=== PATIENT | female | born 1945 | race Caucasian/White ===

== ENCOUNTER 2023-08-18 17:38 | Inpatient (IN) ==
--- NOTE | 2023-08-18 17:46 | ED Triage Note ---
Date of Service August 18, 2023 Provider in Triage Author: Tommie Myers History of Present Illness This patient was briefly evaluated while in triage. An abbreviated physical exam was performed. This patient is a 77-year-old Female who presents to the ED for evaluation of a possible low sodium level. Patient has had these symptoms in the past. The patient reports nausea, vomiting and diarrhea yesterday and this morning. Patient did take some extra sodium pills and felt better. Patient has had issues with hyponatremia since last January. She had a mini stroke before , and was admitted at [facility]. Physical Exam CONSTITUTIONAL: Healthy and well nourished. Patient does not appear in any acute distress. HEENT: Mucous membranes are dry. No scleral icterus or conjunctival injection. RESPIRATORY: Clear to auscultation bilaterally with no wheezing, crackles, rhonchi or stridor. CARDIOVASCULAR: Regular rate and rhythm with no murmurs, rubs or gallops. GASTROINTESTINAL: Bowel sounds present in all quadrants. INTEGUMENTARY: No rash or other significant dermatologic conditions noted. HEMATOLOGIC: No ecchymosis or petechiae. PSYCHIATRIC: Positive affect. NEUROLOGIC: No focal neurologic deficits noted. Initial orders for labs and / or imaging were placed and patient was placed in the waiting area until a bed is available. Please see further documentation for the full ED course.
[2023-08-18 18:25] LABS: Basophils # (auto) 0.06 K/uL (0.00-0.20); Basophils % (auto) 0.5 %; Eosinophils # (auto) 0.25 K/uL (0.00-0.50); Eosinophils % (auto) 2.3 %; Hemoglobin 12.5 g/dl (12.0-16.0); Immature Granulocytes # (auto) 0.05 K/uL (0.01-0.20); Immature Granulocytes % (auto) 0.5 %; Lymphocytes # (auto) 2.08 K/uL (1.20-3.40); Lymphocytes % (auto) 18.8 %; Mean Corpuscular Hemoglobin 29.8 pg (25.0-34.0); Mean Corpuscular Hgb Conc 33.8 g/dL (32.0-36.0); Mean Corpuscular Volume 88.3 fL (80.0-100.0); Mean Platelet Volume 8.8 fL (9.4-12.4); Monocytes # (auto) 0.88 K/uL (0.11-0.59); Monocytes % (auto) 7.9 %; Neutrophils # (auto) 7.77 K/uL (1.40-6.50); Platelet Count 427 K/uL (130-400); RDW Coefficient of Variation 13.7 % (11.5-14.5); RDW Standard Deviation 44.3 fL (36.4-46.3); Red Blood Count 4.19 M/uL (4.20-5.40); White Blood Count 11.09 K/ul (4.8-10.8)
[2023-08-18 18:42] LABS: Albumin Level 4.3 gm/dl (3.4-5.0); BUN Creatinine Ratio 16.5 (10-20); Bilirubin,Total 0.6 mg/dl (0.2-1.0); Calcium 9.7 mg/dl (8.6-10.3); Creatinine Clr Calc Pharmacy 46.6 ml/min; Est GFR (African American) 84.3 ml/min; Est GFR (Non-African American) 72.7 ml/min; Globulin 4.3 gm/dl (2.5-4.0); Potassium 4.4 mmol/L (3.5-5.1); Total Protein 8.6 gm/dl (6.0-8.3)
[2023-08-18 18:48] LABS: Troponin I High Sensitivity 5.6 pg/ml (0-14)
[2023-08-18 18:55] LABS: Prothrombin Time 10.8 Seconds (9.0-12.0)
--- NOTE | 2023-08-18 19:02 | XRay Report ---
XR chest 1V portable HISTORY: 77 years-old Female N/V/D acute chest pain with nausea, vomiting and diarrhea. COMPARISON: None TECHNIQUE: PA view of the chest FINDINGS: Cardiac silhouette is enlarged. Coarsened reticular diffuse interstitial densities with suggestive em physema. No pneumothorax or large pleural effusion. Bones appear grossly intact. IMPRESSION: Coarse reticular interstitial opacities of the lungs are nonspecific without comparison a vailable. The primary differential consideration would be pulmonary fibrosis. Pulmonary edema or an i nterstitial pneumonia considered less likely. ACT 112: Negative or not required by law. The above report was generated using voice recognition software. It may contain grammatical, syntax o r spelling errors. Electronically signed by: Costa Gómez M.D. 08/18/2023 7:01 PM
[2023-08-18] MEDS ORDERED: SODIUM CHLORIDE 0.9% 1,000 ML IV ONE (19:33)
[2023-08-18] MEDS ORDERED: ONDANSETRON INJ 2 MG/ML 2 ML VIAL IV STA (19:33)
--- NOTE | 2023-08-18 19:42 | Emergency Department Note ---
Impression & Plan Hyponatremia ED Provider Note Diagnosis: Hyponatremia Disposition: Admission CHIEF COMPLAINT: Low sodium level HPI: Patient is a 77-year-old female presenting with complaint of GI symptoms over the past 24 hours time. Patient states she has felt nauseous had an episode of vomiting and diarrhea. Patient has been having issues for the past 6 months time with low sodium levels. Patient has been taking oral tablets. Patient's primary care physician has sent her for evaluation at outside hospital's emergency room and she has been admitted multiple times for low sodium levels at [facility]. She is supposed to follow-up with endocrinology and nephrology but has not been able to establish appointments for 1 to 2 months time. Due to patient having GI symptoms today her primary sent her to our facility to have her sodium level checked and potential establishing with nephrology team. PAST MEDICAL HISTORY: See Below PAST SURGICAL HISTORY: See Below SOCIAL HISTORY: See Below HOME MEDICATIONS: See Below ALLERGIES: See Below VITALS: See Below PHYSICAL EXAMINATION: GENERAL: Well appearing, well nourished, NAD, non-toxic. EYE EXAM: Normal conjunctiva. OROPHARYNX: Moist mucus membranes. Grossly normal dentition. NECK: Supple, LUNGS: Clear to auscultation. Normal chest wall mechanics. HEART: NSR ABDOMEN: Abdomen soft, non-tender, normo-active bowel sounds, no masses, no rebound or guarding BACK: No CVA TTP. SKIN: No rashes and no bruising. UPPER EXTREMITIES: Upper extremities are grossly normal LOWER EXTREMITIES: Grossly normal, no edema. NEURO EXAM: A&O x3,, normal speech, moves all 4 extremities PSYCH: Cooperative MEDICAL DECISION MAKING: History obtained from: Patient, daughter ER Course: Patient is a 77-year-old female with history of issues with sodium level over the past 6 months time. Patient has been taking oral supplementation without help. Patient has been having GI symptoms for the past 24 hours time. Patient's abdomen soft nontender nondistended. Patient on blood work today has a sodium of 123. Patient given Zofran and IV fluids. Labs (independently interpreted) are significant for: Sodium 123 EKG interpretation (independently interpreted): Normal sinus rhythm no ST segment elevation or depression Chest x-ray interpretation (independently interpreted); chest x-ray clear Medications given: Normal saline bolus, Zofran Consultants: Hospitalist Triage Nursing notes reviewed and agree them. Vital Signs: reviewed and remarkable for: no significant abnormalities Past Med/Surg History Social History Smoking Status: Current every day smoker Feels Safe at Home: Yes Allergies Allergies Allergy/AdvReac Type Severity Reaction Status Date / Time No Known Allergies Allergy Unverified 08/18/23 20:28 Home Meds Home Medications Medication Instructions Recorded Confirmed albuterol sulfate 90 mcg/actuation 2 puff inhalation Q6H PRN SOB or 08/18/23 08/18/23 aerosol inhaler wheezing amlodipine 10 mg tablet 10 mg PO QAM 08/18/23 08/18/23 aspirin 81 mg tablet,delayed 81 mg PO QAM 08/18/23 08/18/23 release atorvastatin 40 mg tablet 40 mg PO HS 08/18/23 08/18/23 clonidine HCl 0.1 mg tablet 0.1 mg PO DAILY PRN BP greater 08/18/23 08/18/23 than 170/100 escitalopram oxalate 10 mg tablet 10 mg PO QAM 08/18/23 08/18/23 ferrous sulfate 325 mg (65 mg 325 mg PO .LUNCH 08/18/23 08/18/23 iron) tablet levothyroxine 75 mcg tablet 75 mcg PO QAM 08/18/23 08/18/23 lisinopril 20 mg tablet See Rx Instructions .Route .COMPLEX 08/18/23 08/18/23 lisinopril 40 mg tablet See Rx Instructions .Route .COMPLEX 08/18/23 08/18/23 lorazepam 0.5 mg tablet 0.5 mg PO Q6H PRN Anxiety 08/18/23 08/18/23 sodium chloride 1,000 mg soluble 1,000 mg PO TID 08/18/23 08/18/23 tablet tiotropium 2.5 mcg-olodaterol 2.5 2 puff inhalation QAM 08/18/23 08/18/23 mcg/actuation mist for inhalation (Stiolto Respimat) Results & Data (ED) Vital Signs Vital Signs - 24 hr 08/18/23 17:44 08/18/23 19:07 08/18/23 21:00 Temperature 36.8 C 36.6 C Temperature Source Temporal Artery Scan Oral Pulse Rate 90 Pulse Rate [Apical] 87 91 H Respiratory Rate 18 18 20 Respiratory Effort / Characteristics Non-Labored Non-Labored Non-Labored Respiratory Depth Normal Normal Normal Respiratory Pattern Regular Blood Pressure 133/60 Blood Pressure [Right Arm] 118/56 L 119/58 L Blood Pressure Mean 84 Blood Pressure Mean [Right Arm] 76 78 Pulse Oximetry 94 95 99 Oxygen Delivery Method Room Air Room Air Sepsis Recent Fever Within 48 Hours No Sepsis New/Unexplained Change in Mental Status No Sepsis Action Taken by Nursing No Action Required 08/18/23 21:39 Temperature Temperature Source Pulse Rate Pulse Rate [Apical] 87 Respiratory Rate 20 Respiratory Effort / Characteristics Non-Labored Respiratory Depth Normal Respiratory Pattern Blood Pressure Blood Pressure [Right Arm] 129/62 Blood Pressure Mean Blood Pressure Mean [Right Arm] 84 Pulse Oximetry 99 Oxygen Delivery Method Room Air Sepsis Recent Fever Within 48 Hours Sepsis New/Unexplained Change in Mental Status Sepsis Action Taken by Nursing Laboratory Data 08/18/23 17:58 08/18/23 17:58 Lab Results 08/18/23 Range/Units 17:58 WBC 11.09 H (4.8-10.8) K/ul RBC 4.19 L (4.20-5.40) M/uL Hgb 12.5 (12.0-16.0) g/dl Hct 37.0 (37.0-47.0) % MCV 88.3 (80.0-100.0) fL MCH 29.8 (25.0-34.0) pg MCHC 33.8 (32.0-36.0) g/dL RDW Std Deviation 44.3 (36.4-46.3) fL RDW Coeff of Eve 13.7 (11.5-14.5) % Plt Count 427 H (130-400) K/uL MPV 8.8 L (9.4-12.4) fL Immature Gran % (Auto) 0.5 % Neut % (Auto) 70.0 % Lymph % (Auto) 18.8 % Wise % (Auto) 7.9 % Eos % (Auto) 2.3 % Baso % (Auto) 0.5 % Neut # (Auto) 7.77 H (1.40-6.50) K/uL Lymph # (Auto) 2.08 (1.20-3.40) K/uL Wise # (Auto) 0.88 H (0.11-0.59) K/uL Eos # (Auto) 0.25 (0.00-0.50) K/uL Baso # (Auto) 0.06 (0.00-0.20) K/uL Immature Gran # (Auto) 0.05 (0.01-0.20) K/uL PT 10.8 (9.0-12.0) Seconds INR 1.0 (0.9-1.1) Sodium 123 L (136-145) mmol/L Potassium 4.4 (3.5-5.1) mmol/L Chloride 91 L (98-107) mmol/L Carbon Dioxide 24 (21-32) mmol/L Anion Gap 8 (3-11) BUN 13 (6-23) mg/dl Creatinine 0.79 (0.6-1.2) mg/dl Est Cr Clr Drug Dosing 46.6 ml/min Est GFR ( Amer) 84.3 ml/min Est GFR (Non-Af Amer) 72.7 ml/min BUN/Creatinine Ratio 16.5 (10-20) Glucose 104 H (70-99(Fasting)) mg/dl Osmolality 262 L (280-300) mOsm/kg Calcium 9.7 (8.6-10.3) mg/dl Total Bilirubin 0.6 (0.2-1.0) mg/dl AST 30 (13-39) U/L ALT 21 (7-52) U/L Alkaline Phosphatase 116 H (34-104) U/L Troponin I High Sens 5.6 (0-14) pg/ml Total Protein 8.6 H (6.0-8.3) gm/dl Albumin 4.3 (3.4-5.0) gm/dl Globulin 4.3 H (2.5-4.0) gm/dl Albumin/Globulin Ratio 1.0 (0.9-2) Lipase 31 (11-82) U/L Administered Medications Enoxaparin Sodium (Enoxaparin Inj 40 Mg/0.4 Ml Syr) 40 mg SQ HS CADEN Stop: 09/17/23 21:44 Last Admin: 08/18/23 21:57 Dose: Not Given Documented By: AEF Discontinued Medications Sodium Chloride (Nss) 1,000 mls @ 999 mls/hr IV .Q1H1M ONE Stop: 08/18/23 20:33 Last Infusion: 08/18/23 20:40 Dose: Infused Documented By: Infusion: 08/18/23 20:40 Dose: 999 mls/hr Documented By: Admin: 08/18/23 19:41 Dose: 999 mls/hr Documented By: AEF Sodium Chloride (Nss) 1,000 mls @ 80 mls/hr IV .[id number] CADEN Stop: 09/17/23 21:44 Last Admin: 08/18/23 21:59 Dose: Not Given Documented By: AEF Ondansetron HCl (Ondansetron Inj 2 Mg/Ml 2 Ml Vial) 4 mg IV NOW STA Stop: 08/18/23 19:34 Last Admin: 08/18/23 19:41 Dose: 4 mg Documented By: AEF Imaging Data Radiologist's Impression: Chest X-Ray 08/18/23 17:47 XR chest 1V portable HISTORY: 77 years-old Female N/V/D acute chest pain with nausea, vomiting and diarrhea. COMPARISON: None TECHNIQUE: PA view of the chest FINDINGS: Cardiac silhouette is enlarged. Coarsened reticular diffuse interstitial densities with suggestive emphysema. No pneumothorax or large pleural effusion. Bones appear grossly intact. IMPRESSION: Coarse reticular interstitial opacities of the lungs are nonspecific without comparison available. The primary differential consideration would be pulmonary fibrosis. Pulmonary edema or an interstitial pneumonia considered less likely. ACT 112: Negative or not required by law. The above report was generated using voice recognition software. It may contain grammatical, syntax or spelling errors. Electronically signed by: Costa Gómez M.D. 08/18/2023 7:01 PM Discharge Plan Visit Data Chief Complaint: GI Assessment Stated Complaint: LOW SODIUM LVLS ED Provider: Zafar Rucker Discharge Problem: Hyponatremia Forms Stand Alone Forms: My [facility] Prescriptions Prescriptions: No Action atorvastatin 40 mg tablet 40 mg PO HS clonidine HCl 0.1 mg tablet 0.1 mg PO DAILY PRN (Reason: BP greater than 170/100) lisinopril 20 mg tablet See Rx Instructions .ROUTE .COMPLEX Rx Instructions: Take 20mg with 40mg tablet to equal 60mg by mouth every morning aspirin 81 mg tablet,delayed release (DR/EC) 81 mg PO QAM levothyroxine 75 mcg tablet 75 mcg PO QAM lorazepam 0.5 mg tablet 0.5 mg PO Q6H PRN (Reason: Anxiety) amlodipine 10 mg tablet 10 mg PO QAM ferrous sulfate 325 mg (65 mg iron) tablet 325 mg PO .LUNCH albuterol sulfate 90 mcg/actuation HFA aerosol inhaler 2 puff INHALATION Q6H PRN (Reason: SOB or wheezing) lisinopril 40 mg tablet See Rx Instructions .ROUTE .COMPLEX Rx Instructions: Take 40mg with 20mg tablet to equal 60mg by mouth every morning escitalopram oxalate 10 mg tablet 10 mg PO QAM sodium chloride 1,000 mg tablet,soluble 1,000 mg PO TID Stiolto Respimat 2.5-2.5 mcg/actuation mist 2 puff INHALATION QAM Referrals Referrals: PCP,NO [Physician] -
--- NOTE | 2023-08-18 20:32 | History & Physical Report ---
Date of Service August 18, 2023 Assessment & Plan (1) Hyponatremia: Plan: Pt is a 77 yo female with PMH of hyponatremia, "mini-stroke", COPD, and HTN presenting due to fatigue, malaise, and vomiting. Her Na was found to be 123. Hyponatremia - appears acute on chronic; unknown etiology- SIADH vs. dietary in origin vs. ? - Na 123 upon admission; s/p 1L NS in ED; repeat Na 125 - urine studies pending; serum osm low - per pt, has had multiple studies/work up for her hyponatremia but her PCP has not found an explanation yet for her repeated symptoms and has been trying to set her up with specialty care (either nephro or endocrine) will attempt to obtain records from pt's PCP with [facility] to determine what work up has already occurred - with improvement in pt's Na after fluid resuscitation, will continue IVF with NS at 100 mL/hr - trend BMP q6hr with goal correction 6-8 over next 24 hrs - nephro consulted COPD - continue daily home inhalers or formulary equivalents - pt is a current smoker with >50 pack year hx; per pt, has been screened multiple times over the years for lung cancer with LDCT - with significant hx of smoking and recurrent hyponatremia (and no records of last LDCT), consideration may be given for chest CT to screen for malignancy HX of CVA - continue home atorvastatin, aspirin HTN - hold home clonidine - will continue home lisinopril but decrease from 60mg to 40 mg Hypothyroidism - continue home levothyroxine 75 mcg daily Diet: regular VTE ppx: lovenox Code: DNR/DNI Dispo: admit to med/tele (2) COPD (chronic obstructive pulmonary disease): (3) History of CVA (cerebrovascular accident): (4) Hypothyroidism: History of Present Illness Chief Complaint: symptomatic hyponatremia Primary Care Provider: Lissette Dailey Pt is a 77 yo female with PMH of hyponatremia, "mini-stroke", COPD, and HTN presenting due to fatigue, malaise, and vomiting. Pt explains that she has been struggling with her sodium levels for months since January. No inciting event. Since then, she has been hospitalized numerous times ([place] and [place]) for this. She was also recently admitted for a "mini- stroke" and she was told her brain MRI showed a hx of prior stroke. Her PCP has been handling her sodium levels by supplementing her with 1000mg TID. When she originally started this, she became hypertensive. She has since required medications to control this but her BP are now under control. She reports she has seen a multifocal button generator once in the past for "fluid around my heart" and an enlarged aorta. She was told that both of these things were fine and she has not needed to f/u. She has also seen a pulmonology for her hx of COPD. She is a 55 pack year smoker. She uses inhalers at home for this. She began vomiting (x2) this morning with associated diarrhea (x2). She called her PCP who told her to come to the hospital because it could be due to her sodium levels. She denies hematochezia or hematemesis. In the ER, pt was hemodynamically stable. Her lab work was significant for WBC 11.09, Hgb 12.5, platelets 427, Na 123, and Cr 0.79. CXR showed findings consistent with possible pulmonary fibrosis. She was given 4mg zofran and 1L NS. Allergies Allergy/AdvReac Type Severity Reaction Status Date / Time No Known Allergies Allergy Unverified 08/18/23 20:28 Home Medications Medication Instructions Recorded Confirmed Type albuterol sulfate 90 mcg/actuation 2 puff inhalation Q6H PRN SOB or 08/18/23 08/18/23 History aerosol inhaler wheezing amlodipine 10 mg tablet 10 mg PO QAM 08/18/23 08/18/23 History aspirin 81 mg tablet,delayed 81 mg PO QAM 08/18/23 08/18/23 History release atorvastatin 40 mg tablet 40 mg PO HS 08/18/23 08/18/23 History clonidine HCl 0.1 mg tablet 0.1 mg PO DAILY PRN BP greater 08/18/23 08/18/23 History than 170/100 escitalopram oxalate 10 mg tablet 10 mg PO QAM 08/18/23 08/18/23 History ferrous sulfate 325 mg (65 mg 325 mg PO .LUNCH 08/18/23 08/18/23 History iron) tablet levothyroxine 75 mcg tablet 75 mcg PO QAM 08/18/23 08/18/23 History lisinopril 20 mg tablet See Rx Instructions .Route .COMPLEX 08/18/23 08/18/23 History lisinopril 40 mg tablet See Rx Instructions .Route .COMPLEX 08/18/23 08/18/23 History lorazepam 0.5 mg tablet 0.5 mg PO Q6H PRN Anxiety 08/18/23 08/18/23 History sodium chloride 1,000 mg soluble 1,000 mg PO TID 08/18/23 08/18/23 History tablet tiotropium 2.5 mcg-olodaterol 2.5 2 puff inhalation QAM 08/18/23 08/18/23 History mcg/actuation mist for inhalation (Stiolto Respimat) Past Med/Surg History Social History Smoking Status: Current every day smoker Tobacco Type: Cigarettes Hx Alcohol Use: No Hx Substance Use: No Preferred Language: Greek Communication Ability: Effective Bottle Booth Attendant Required: No Beliefs That Will Affect Care: None Current Living Situation: Alone Other Information That Helps Us Care for You: No Feels Safe at Home: Yes Safety Concerns: Feels Safe At This Time Review of Systems Review of Systems: As per HPI Physical Exam Physical Exam: Constitutional: well appearing, no acute distress HEENT: normocephalic, no conjunctival injection CV: RRR, no murmur, no LE edema Respiratory: CTA bilaterally with diminished breath sounds throughout. No rhonchi, wheezes, or crackles. No increased work of breathing GI: soft, nondistended, nontender, + bowel sounds MSK: no gross deformities noted Skin: warm, dry, no rashes Neuro: alert, oriented, no FND noted Psych: mood and affect congruent Results & Data Results & Data Vital Signs (Past 12 Hours) Vital Signs Temp Pulse Pulse Resp BP BP Pulse Ox 08/18/23 19:07 36.6 C 87 18 118/56 L 95 08/18/23 17:44 36.8 C 90 18 133/60 94 O2 Del Method 08/18/23 19:07 Room Air 08/18/23 17:44 Room Air Supervising Physician Co-Signing Physician Notes Patient seen and examined, chart reviewed, case discussed with Dr. Yin and I agree with the assessment and plan as above. In brief, patient is a 77yo female presenting with fatigue, malaise and vomiting. Patient with hyponatremia first diagnosed in January 2023. She has been following with her PCP and has had some workup performed. She is on Na 1000mg po TID. She reports she eats a regular diet. She drinks water and iced tea through the day as well as "Liquid IV" electrolyte drink. Patient with vomiting x 2 episodes and diarrhea. She reports feeling similar to when her Na level was low in the past. In the ER she is afebrile, HD stable, NAD Skin - warm, dry, intact HEENT - slightly tacky mucus membranes, neck supple, no JVD Heart - +S1/S2, regular, no m/r/g Lungs - CTA, no rales/rhonchi/wheezes Abd - +BS, soft, NT/ND Ext - warm, well perfused, no clubbing/cyanosis or edema Labs and images reviewed. Na of 123 which increased to 125 after administration of 1L NSS in the ER Assessment/Plan -Hyponatremia - minimally symptomatic with nausea. Suspect acute on chronic. Patient appears mildly hypovolemic -Low urine and serum osmolality. Awaiting UA and urine Na -Requesting records from outpatient workup -Will continue NSS at 100mL/hr -Trend BMP q 6 hours -Goal to increase 6-8/day -Nephrology consultation appreciated -Remainder of plan as above Resident Activity Tracking Resident Involvement: Resident Care Provided Care Provided: Adult [facility] Medicine
[2023-08-18] MEDS ORDERED: ONDANSETRON INJ 2 MG/ML 2 ML VIAL IV PRN (21:38)
[2023-08-18] MEDS ORDERED: POLYETHYLENE (MIRALAX) 17 GM PACK PO PRN (21:38)
[2023-08-18] MEDS ORDERED: MELATONIN 3 MG TAB PO PRN (21:38)
[2023-08-18] MEDS ORDERED: SODIUM CHLORIDE 0.9% 1,000 ML IV SCH (21:45)
[2023-08-18] MEDS: ENOXAPARIN INJ 40 MG/0.4 ML SYR SQ SCH (21:57)
[2023-08-18 23:17] LABS: BUN Creatinine Ratio 15.7 (10-20); Calcium 8.5 mg/dl (8.6-10.3); Creatinine Clr Calc Pharmacy 52.6 ml/min; Est GFR (African American) 97.5 ml/min; Est GFR (Non-African American) 84.2 ml/min; Potassium 4.2 mmol/L (3.5-5.1)
[2023-08-18] MEDS ORDERED: ALBUTEROL HFA 8 GM INHALER INH PRN (23:22)
[2023-08-18] MEDS: SODIUM CHLORIDE 0.9% 1,000 ML IV SCH (23:47)
--- NOTE | 2023-08-19 00:37 | Billing Data ---
Date of Service August 18, 2023 Coding Level of Care Code 23326 INT INP/OBS CARE
[2023-08-19 04:02] LABS: Hematocrit (blood only) 31.8 % (37.0-47.0); Hemoglobin 10.6 g/dl (12.0-16.0); Mean Corpuscular Hemoglobin 29.7 pg (25.0-34.0); Mean Corpuscular Hgb Conc 33.3 g/dL (32.0-36.0); Mean Corpuscular Volume 89.1 fL (80.0-100.0); Mean Platelet Volume 8.6 fL (9.4-12.4); Platelet Count 347 K/uL (130-400); RDW Coefficient of Variation 13.6 % (11.5-14.5); RDW Standard Deviation 44.5 fL (36.4-46.3); Red Blood Count 3.57 M/uL (4.20-5.40); White Blood Count 9.39 K/ul (4.8-10.8)
[2023-08-19 04:19] LABS: BUN Creatinine Ratio 14.9 (10-20); Calcium 8.6 mg/dl (8.6-10.3); Creatinine Clr Calc Pharmacy 54.9 ml/min; Est GFR (Non-African American) 85.4 ml/min; Potassium 4.2 mmol/L (3.5-5.1)
[2023-08-19] MEDS: LEVOTHYROXINE SODIUM 75 MCG TABLET PO SCH (06:32)
--- NOTE | 2023-08-19 07:23 | Hospitalist Progress Note ---
Date of Service August 19, 2023 Assessment & Plan (1) Hyponatremia: Plan: Pt is a 77 yo female with PMH of hyponatremia, "mini-stroke", COPD, and HTN presenting due to fatigue, malaise, and vomiting. Her Na was found to be 123. Hyponatremia - appears acute on chronic; unknown etiology- SIADH leading diagnosis. - Na 123 upon admission; improved slightly with normal saline, though repeat sodium returned to previous levels. - urine studies pending; serum osm low - per pt, has had multiple studies/work up for her hyponatremia but her PCP has not found an explanation yet for her repeated symptoms and has been trying to set her up with specialty care (either nephro or endocrine) will attempt to obtain records from pt's PCP with [facility] to determine what work up has already occurred -Due to fluids only slightly helping, will hold fluids at this time. - nephro consulted: -Order urine osmolarity, urine sodium, TSH, and random cortisol. -Given drop in 1 dose and recheck sodium. -Given extensive smoking history, will order CT abdomen pelvis and chest. -CT showed emphysema with mucous plugging and bibasilar opacities. There is also trace pleural effusion with dependent consolidation. -Scarlike opacities seen throughout both lungs measuring up to 1.8 cm in length. Recommend a 6-month follow-up chest CT for reassessment -CT abdomen and pelvis also showed a infrarenal abdominal aortic aneurysm measuring 6.1 cm with nonspecific periaortic stranding without retroperitoneal hematoma. Abdominal aortic aneurysm -Incidentally noted a 6.1 cm AAA with nonspecific periaortic stranding without retroperitoneal hematoma. -Will consult vascular surgery given the size of AAA as well as straining seen on CT. -Did talk to patient who stated that she was seen by someone last summer for this and that no intervention was required. Still waiting on records from [facility]. COPD - continue daily home inhalers or formulary equivalents - pt is a current smoker with >50 pack year hx; per pt, has been screened multiple times over the years for lung cancer with LDCT - with significant hx of smoking and recurrent hyponatremia (and no records of last LDCT), no malignancy seen on CT chest, abdomen or pelvis. HX of CVA - continue home atorvastatin, aspirin HTN - hold home clonidine - will continue home lisinopril but decrease from 60mg to 40 mg Hypothyroidism - continue home levothyroxine 75 mcg daily Diet: regular VTE ppx: lovenox Code: DNR/DNI Dispo: admit to med/tele (2) COPD (chronic obstructive pulmonary disease): (3) History of CVA (cerebrovascular accident): (4) Hypothyroidism: (5) AAA (abdominal aortic aneurysm): Admission and Anticipated Discharge Date Admission Date: August 18, 2023 Supervising Physician Co-Signing Physician Notes I personally examined the patient and verified all villalta points of history and exam, discussed case, and agree with decision making with Dr Munoz feeling ok overall discussed labs/w/u findings/working dx etc and answered all questions to the best of my ability. notes that she was also told about anuerysm ?last summer - but notes at that time the information services manager she was seeing did not think much of it gen aaox3 pleasant nad heent nc at mmm breathing unlabored no accessory muscles good effort skin no rashes no pallor or icterus neuro no focal deficits labs, CTs noted hyponatremia - thus far most c/w SiADH, and thus far most likely root cause is lung disease. fluid restrict, follow for response with tolvaptan AAA - 6.1cm, no symptoms but with some stranding - both based on size (no old records but if <1yr ago information services manager she was seeing did not rec interventions or monitoring i doubt it was this big) - likely has grown. vascular surgery eval. hold lovenox pending vascular eval. otherwise as above Subjective Patient was seen bedside this morning. States that her symptoms of nausea and vomiting are improving still slightly present. States that she is also been having a cough for the past 3 to 4 days. Review of Systems Review of Systems: All systems reviewed & are unremarkable except as noted in Subjective Physical Exam Physical Exam: Constitutional: well appearing, no acute distress HEENT: normocephalic, no conjunctival injection CV: RRR, no murmur, no LE edema Respiratory: CTA bilaterally with diminished breath sounds throughout. No rhonchi, wheezes, or crackles. No increased work of breathing GI: soft, nondistended, nontender, + bowel sounds MSK: no gross deformities noted Skin: warm, dry, no rashes Neuro: alert, oriented, no FND noted Psych: mood and affect congruent Results & Data Results & Data Vital Signs (Past 12 Hours) Vital Signs Pulse Pulse Resp BP BP Pulse Ox O2 Del Method 08/19/23 07:09 74 08/19/23 06:20 72 17 99 08/19/23 06:10 77 17 99 08/19/23 06:00 76 14 100 08/19/23 06:00 73 16 131/76 100 08/19/23 05:50 72 15 100 08/19/23 05:40 73 18 100 08/19/23 05:30 70 14 100 08/19/23 05:20 72 18 100 08/19/23 05:10 71 16 98 08/19/23 05:00 75 18 132/59 L 94 08/19/23 05:00 75 19 94 08/19/23 04:50 87 18 97 08/19/23 04:40 71 18 99 08/19/23 04:30 75 16 99 08/19/23 04:20 74 17 100 08/19/23 04:10 75 16 98 08/19/23 04:00 73 15 99 08/19/23 04:00 73 16 126/72 98 08/19/23 03:50 75 18 96 08/19/23 03:40 73 15 99 08/19/23 03:30 74 24 98 08/19/23 03:20 74 21 100 08/19/23 03:10 81 16 100 08/19/23 03:00 78 19 98 08/19/23 03:00 138/64 08/19/23 02:50 75 15 99 08/19/23 02:40 91 H 14 99 08/19/23 02:30 72 21 98 08/19/23 02:20 76 19 98 08/19/23 02:10 90 22 99 08/19/23 02:00 76 19 99 08/19/23 02:00 123/60 08/19/23 01:50 75 16 100 08/19/23 01:46 74 16 132/64 99 Nasal Cannula 08/19/23 01:40 79 24 100 08/19/23 01:30 76 16 100 08/19/23 01:20 74 17 100 08/19/23 01:10 74 18 100 08/19/23 01:00 132/64 08/19/23 01:00 74 18 100 08/19/23 00:50 87 19 99 08/19/23 00:40 92 H 23 84 L 08/19/23 00:30 75 20 94 08/19/23 00:29 76 17 136/74 94 Room Air 08/19/23 00:22 136/74 08/19/23 00:22 81 20 89 L 08/19/23 00:21 77 11 L 08/19/23 00:00 74 16 08/18/23 23:50 84 23 08/18/23 23:40 79 21 08/18/23 23:30 79 20 08/18/23 23:20 76 22 08/18/23 23:10 77 25 H 08/18/23 23:00 79 20 08/18/23 23:00 81 20 129/62 98 08/18/23 22:50 83 19 08/18/23 22:40 78 20 08/18/23 22:30 76 21 08/18/23 22:20 84 21 08/18/23 22:10 84 41 H 08/18/23 22:00 81 24 08/18/23 21:56 85 18 08/18/23 21:56 129/62 08/18/23 21:50 89 22 08/18/23 21:40 82 18 08/18/23 21:39 87 20 129/62 99 Room Air 08/18/23 21:30 84 22 08/18/23 21:00 91 H 20 119/58 L 99 O2 Flow Rate 08/19/23 07:09 08/19/23 06:20 08/19/23 06:10 08/19/23 06:00 08/19/23 06:00 08/19/23 05:50 08/19/23 05:40 08/19/23 05:30 08/19/23 05:20 08/19/23 05:10 08/19/23 05:00 08/19/23 05:00 08/19/23 04:50 08/19/23 04:40 08/19/23 04:30 08/19/23 04:20 08/19/23 04:10 08/19/23 04:00 08/19/23 04:00 08/19/23 03:50 08/19/23 03:40 08/19/23 03:30 08/19/23 03:20 08/19/23 03:10 08/19/23 03:00 08/19/23 03:00 08/19/23 02:50 08/19/23 02:40 08/19/23 02:30 08/19/23 02:20 08/19/23 02:10 08/19/23 02:00 08/19/23 02:00 08/19/23 01:50 08/19/23 01:46 2 08/19/23 01:40 08/19/23 01:30 08/19/23 01:20 08/19/23 01:10 08/19/23 01:00 08/19/23 01:00 08/19/23 00:50 08/19/23 00:40 08/19/23 00:30 08/19/23 00:29 08/19/23 00:22 08/19/23 00:22 08/19/23 00:21 08/19/23 00:00 08/18/23 23:50 08/18/23 23:40 08/18/23 23:30 08/18/23 23:20 08/18/23 23:10 08/18/23 23:00 08/18/23 23:00 08/18/23 22:50 08/18/23 22:40 08/18/23 22:30 08/18/23 22:20 08/18/23 22:10 08/18/23 22:00 08/18/23 21:56 08/18/23 21:56 08/18/23 21:50 08/18/23 21:40 08/18/23 21:39 08/18/23 21:30 08/18/23 21:00 Resident Activity Tracking Resident Involvement: Resident Care Provided Care Provided: Adult Hospital Medicine
[2023-08-19] MEDS: ASPIRIN 81 MG ECTAB PO SCH (08:54)
[2023-08-19] MEDS: amLODIPine BESYLATE 5 MG TAB PO SCH (08:54)
[2023-08-19] MEDS: lisinopril 40 MG TAB PO SCH (08:54)
[2023-08-19] MEDS: UMECLIDINIUM/VILANTEROL 62.5/25MCG 7 PUFFS/INHALER INH SCH (08:55)
[2023-08-19] MEDS: ESCITALOPRAM OXALATE 10 MG TAB PO SCH (08:55)
[2023-08-19] MEDS: SODIUM CHLORIDE 0.9% 1,000 ML IV SCH (08:58)
[2023-08-19] MEDS: ACETAMINOPHEN 325 MG TAB PO PRN ×3 (10:08→20:26)
[2023-08-19 10:51] LABS: BUN Creatinine Ratio 11.6 (10-20); Calcium 8.4 mg/dl (8.6-10.3); Creatinine Clr Calc Pharmacy 53.3 ml/min; Est GFR (Non-African American) 84.6 ml/min; Potassium 4.3 mmol/L (3.5-5.1)
--- NOTE | 2023-08-19 11:19 | Nephrology Consultation ---
Date of Consultation August 19, 2023 Assessment & Plan (1) Hyponatremia: (2) COPD (chronic obstructive pulmonary disease): (3) Hypothyroidism: (4) History of CVA (cerebrovascular accident): (5) HTN (hypertension): (6) Generalized weakness: (7) Weight loss: Plan 77-year-old female with history of hyponatremia, admitted with generalized weakness, vomiting and diarrhea and found to have acute hyponatremia, serum sodium 123. Initially she was started on IV fluid with sodium slightly improved to 126 however sodium this morning again dropped to 124. Blood pressure acceptable. No urine osmolality available. -- Discontinue normal saline, repeat serum sodium in 2 hours and then check every 12 hours. Check urine osmolality, urine sodium, TSH, random cortisol. -- Give tolvaptan 15 mg x 1 dose now. -- Considering long history of smoking for more than 60 years, weight loss, recent persistent hyponatremia, and chest x-ray showing concern for possible interstitial fibrosis, will order CT chest abdomen pelvis for further evaluation. Eventually she should have age-appropriate screening including mammogram and colonoscopy. Thank you for allowing me to participate in your patient's care. It was a pleasure to see Oly. History of Present Illness Reason for Consultation: Hyponatremia Attending Physician: Albert Nunez DO History of Present Illness Ms. Oly Denton is a 77 yo female with PMH of Hypertension, hyponatremia, COPD admitted with generalized weakness and acute hyponatremia. Nephrology consult was requested for management of hyponatremia. EMR records were reviewed in detail during patient's visit. Oly presented to ER yesterday with generalized weakness, nausea, vomiting and diarrhea. She reports having history of hyponatremia which started sometime around January when she went to hospital with again feeling weak and tired all the time. Since then she reports multiple hospitalization and workup in outpatient facility, those are not available to review. She was started on salt tablet which she has been taking 1 g 3 times a day and her sodium was staying rela tively stable as an outpatient. However recently she again started feeling poorly. In ER yesterday, sodium was 123, she was started on IV normal saline and sodium slightly improved to 125 last night and 126 this morning. Urine osmolality was 260. She reports decent appetite. She reports being in good health until about 3 years ago with no significant chronic medical condition. She had COVID-vaccine 3 years ago and she feels like since then her health has been declining with slow progressive weight loss, generalized weakness and fatigue and low energy overall. She lost almost 25 pounds over last 1 year or so. No h/o, NSAID, thiazide diuretics use. No history of diabetes, CHF. Current active smoker, smokes about 1 pack/day for last more than 60 years . She reports she previously had CT chest for lung cancer screening but those reports are not available. No personal history of malignancy but last mammogram was more than 10 years ago. Never had colonoscopy, refused. She has history of hypothyroidism, has been on levothyroxine, no history of adrenal insufficiency. Renal function was normal, creatinine was 0.8 and all other electrolyte within normal limit. No urinalysis or urine osmolality available. Reports recently her blood pressure has been running high and she has been taking lisinopril, Amlodipine and Clonidine. She is still getting normal saline at 100 mL/h. Sodium slightly improved to 126 this morning. Blood pressure acceptable. Allergies Allergy/AdvReac Type Severity Reaction Status Date / Time No Known Allergies Allergy Unverified 08/18/23 20:28 Home Medications Medication Instructions Recorded Confirmed Type albuterol sulfate 90 mcg/actuation 2 puff inhalation Q6H PRN SOB or 08/18/23 08/18/23 History aerosol inhaler wheezing amlodipine 10 mg tablet 10 mg PO QAM 08/18/23 08/18/23 History aspirin 81 mg tablet,delayed 81 mg PO QAM 08/18/23 08/18/23 History release atorvastatin 40 mg tablet 40 mg PO HS 08/18/23 08/18/23 History clonidine HCl 0.1 mg tablet 0.1 mg PO DAILY PRN BP greater 08/18/23 08/18/23 History than 170/100 escitalopram oxalate 10 mg tablet 10 mg PO QAM 08/18/23 08/18/23 History ferrous sulfate 325 mg (65 mg 325 mg PO .LUNCH 08/18/23 08/18/23 History iron) tablet levothyroxine 75 mcg tablet 75 mcg PO QAM 08/18/23 08/18/23 History lisinopril 20 mg tablet See Rx Instructions .Route .COMPLEX 08/18/23 08/18/23 History lisinopril 40 mg tablet See Rx Instructions .Route .COMPLEX 08/18/23 08/18/23 History lorazepam 0.5 mg tablet 0.5 mg PO Q6H PRN Anxiety 08/18/23 08/18/23 History sodium chloride 1,000 mg soluble 1,000 mg PO TID 08/18/23 08/18/23 History tablet tiotropium 2.5 mcg-olodaterol 2.5 2 puff inhalation QAM 08/18/23 08/18/23 History mcg/actuation mist for inhalation (Stiolto Respimat) Patient History Medical History (Updated 08/19/23 @ 11:29 by Radha Bullard MD) Weight loss Generalized weakness HTN (hypertension) Social History Smoking Status: Current every day smoker Tobacco Type: Cigarettes Hx Alcohol Use: No Hx Substance Use: No Preferred Language: Malian Communication Ability: Effective Bung Driver Required: No Beliefs That Will Affect Care: None Current Living Situation: Alone Other Information That Helps Us Care for You: No Feels Safe at Home: Yes Safety Concerns: Feels Safe At This Time Review of Systems Review of Systems: All systems reviewed & are unremarkable except as noted in Subjective Physical Exam Constitutional: WD/WN, vitals as above + ill appearing; no acute distress Eyes: + anicteric sclerae ENMT: Ears: no hearing impairment Neck: normal visual inspection Thyroid: no thyromegaly Respiratory: no respiratory distress and no cough Auscultation: + crackles; no wheezes Cardiovascular: RRR, no murmur, no edema Gastrointestinal (Abdomen): Inspection/Auscultation: abdomen normal to inspection Musculoskeletal: Extremities: extremities normal to inspection Skin: no rashes, warm and dry Neurologic: no focal motor deficits and not confused Psychiatric: Orientation: alert and oriented x 3 Affect: euthymic affect Results & Data Vital Signs (Past 12 Hours) Vital Signs Temp Pulse Pulse Resp BP BP Pulse Ox 08/19/23 10:09 36.9 C 77 19 138/63 98 08/19/23 08:40 74 20 98 08/19/23 08:30 84 21 98 08/19/23 08:20 76 17 98 08/19/23 08:10 75 18 98 08/19/23 08:00 79 22 98 08/19/23 08:00 136/65 08/19/23 07:50 74 22 96 08/19/23 07:40 84 24 98 08/19/23 07:30 74 17 98 08/19/23 07:20 84 17 95 08/19/23 07:10 72 18 97 08/19/23 07:09 74 08/19/23 07:00 81 18 137/72 99 08/19/23 06:20 72 17 99 08/19/23 06:10 77 17 99 08/19/23 06:00 76 14 100 08/19/23 06:00 73 16 131/76 100 08/19/23 05:50 72 15 100 08/19/23 05:40 73 18 100 08/19/23 05:30 70 14 100 08/19/23 05:20 72 18 100 08/19/23 05:10 71 16 98 08/19/23 05:00 75 18 132/59 L 94 08/19/23 05:00 75 19 94 08/19/23 04:50 87 18 97 08/19/23 04:40 71 18 99 08/19/23 04:30 75 16 99 08/19/23 04:20 74 17 100 08/19/23 04:10 75 16 98 08/19/23 04:00 73 15 99 08/19/23 04:00 73 16 126/72 98 08/19/23 03:50 75 18 96 08/19/23 03:40 73 15 99 08/19/23 03:30 74 24 98 08/19/23 03:20 74 21 100 08/19/23 03:10 81 16 100 08/19/23 03:00 78 19 98 08/19/23 03:00 138/64 08/19/23 02:50 75 15 99 08/19/23 02:40 91 H 14 99 08/19/23 02:30 72 21 98 08/19/23 02:20 76 19 98 08/19/23 02:10 90 22 99 08/19/23 02:00 76 19 99 08/19/23 02:00 123/60 08/19/23 01:50 75 16 100 08/19/23 01:46 74 16 132/64 99 08/19/23 01:40 79 24 100 08/19/23 01:30 76 16 100 08/19/23 01:20 74 17 100 08/19/23 01:10 74 18 100 08/19/23 01:00 132/64 08/19/23 01:00 74 18 100 08/19/23 00:50 87 19 99 08/19/23 00:40 92 H 23 84 L 08/19/23 00:30 75 20 94 08/19/23 00:29 76 17 136/74 94 08/19/23 00:22 136/74 08/19/23 00:22 81 20 89 L 08/19/23 00:21 77 11 L 08/19/23 00:00 74 16 08/18/23 23:50 84 23 08/18/23 23:40 79 21 08/18/23 23:30 79 20 08/18/23 23:20 76 22 O2 Del Method O2 Flow Rate 08/19/23 10:09 Room Air 08/19/23 08:40 08/19/23 08:30 08/19/23 08:20 08/19/23 08:10 08/19/23 08:00 08/19/23 08:00 08/19/23 07:50 08/19/23 07:40 08/19/23 07:30 08/19/23 07:20 08/19/23 07:10 08/19/23 07:09 08/19/23 07:00 08/19/23 06:20 08/19/23 06:10 08/19/23 06:00 08/19/23 06:00 08/19/23 05:50 08/19/23 05:40 08/19/23 05:30 08/19/23 05:20 08/19/23 05:10 08/19/23 05:00 08/19/23 05:00 08/19/23 04:50 08/19/23 04:40 08/19/23 04:30 08/19/23 04:20 08/19/23 04:10 08/19/23 04:00 08/19/23 04:00 08/19/23 03:50 08/19/23 03:40 08/19/23 03:30 08/19/23 03:20 08/19/23 03:10 08/19/23 03:00 08/19/23 03:00 08/19/23 02:50 08/19/23 02:40 08/19/23 02:30 08/19/23 02:20 08/19/23 02:10 08/19/23 02:00 08/19/23 02:00 08/19/23 01:50 08/19/23 01:46 Nasal Cannula 2 08/19/23 01:40 08/19/23 01:30 08/19/23 01:20 08/19/23 01:10 08/19/23 01:00 08/19/23 01:00 08/19/23 00:50 08/19/23 00:40 08/19/23 00:30 08/19/23 00:29 Room Air 08/19/23 00:22 08/19/23 00:22 08/19/23 00:21 08/19/23 00:00 08/18/23 23:50 08/18/23 23:40 08/18/23 23:30 08/18/23 23:20 PG Care Time/CCT Total # of Minutes Spent Total Time Spent with Patient: Total time spent is greater than 50% in coordination of care (as documented) at patient's floor/unit and/or counseling patient: Coding Level of Care Code 08279 IN/OBS CONSULT LVL 5,80M Diagnoses Hyponatremia E87.1 COPD (chronic obstructive pulmonary disease) J44.9 Hypothyroidism E03.9 History of CVA (cerebrovascular accident) Z86.73 HTN (hypertension) I10 Generalized weakness R53.1 Weight loss R63.4
[2023-08-19] MEDS ORDERED: TOLVAPTAN 15 MG TABLET PO STA (11:42)
[2023-08-19] MEDS ORDERED: [UNRECOGNIZED DRUG - REMARK] ONE (11:45)
[2023-08-19] MEDS: FERROUS SULFATE 325 MG TAB PO SCH (12:11)
[2023-08-19 12:13] LABS: Uric Acid 2.7 mg/dl (2.6-7.2)
[2023-08-19 12:29] LABS: Thyroid Stimulating Hormone 1.342 uIu/ml (0.300-4.500)
--- NOTE | 2023-08-19 12:54 | CT Scan Report ---
CT SCAN OF THE CHEST WITHOUT IV CONTRAST CLINICAL HISTORY: Hyponatremia. Weight loss. Smoking history. Abnormal chest x-ray. COMPARISON STUDY: Chest x-ray dated 08/18/2023. TECHNIQUE: CT scan of the thorax was performed from the thoracic inlet to the upper abdomen. Images are reviewed in the axial, sagittal, and coronal planes. IV contrast was not administered for this ex amination as per the referring clinician. A dose lowering technique was utilized adhering to the jose eduardo lai of GIOVANNY. FINDINGS: Thyroid: Mildly atrophic and heterogeneous. Thoracic aorta: There is advanced atherosclerotic calcification of the thoracic aorta, which is angi l in caliber and demonstrates standard 3-vessel arch anatomy. Heart: The heart is normal in size noting a small pericardial effusion. The coronary arteries are den sely calcified. Lungs and pleural spaces: There is advanced and some of this change. The trachea and central airways are clear. Fluid/debris versus mucous plugging is noted in the lower lobe airways. There are trace pl eural effusions with mild dependent consolidation. Scar like opacities are seen throughout both lungs . The largest is in the left upper lobe on image #77 and measures 1.8 cm in length. Mediastinum: There are mildly enlarged mediastinal lymph nodes. A subcarinal node measures 14 mm shor t axis. A precarinal node measures 10 mm in short axis. Carolyn: Not well assessed without IV contrast. Axillae: There is no axillary lymphadenopathy. Upper abdomen: There is a small hiatal hernia. Upper pole renal cysts measure up to 2.4 cm. An abdomi nal aortic aneurysm is partially visualized. This measures at least 4.4 cm in diameter. Skeletal structures: The skeletal structures are osteopenic. Degenerative change is noted in the shou lders and spine. No lytic or blastic bony lesions are seen. IMPRESSION: 1. Advanced emphysema. 2. There are trace pleural effusions with dependent consolidation. Correlate clinically for evidence of pneumonia/aspiration pneumonitis. Fluid/debris versus mucous plugging is noted in the lower lobe a irways. Radiographic follow-up to resolution is recommended. 3. There are scarlike opacities seen throughout both lungs which measure up to 1.8 cm in length. A pr ecautionary six-month follow-up chest CT is recommended for reassessment. 4. Mildly enlarged mediastinal lymph nodes are nonspecific and likely related to chronic lung disease . These can also be assessed at follow-up. 5. A 4.4 cm infrarenal abdominal aortic aneurysm is partially visualized. Follow with vascular surger y is recommend for further workup. 6. Additional findings as above. ACT 112: Positive. There are findings on this exam that require communication between the performing entity and the patient following Patient Test Result Information Act ([place] Act 112) guidelines. Electronically signed by: Sukh Lowery M.D. 08/19/2023 12:52 PM
--- NOTE | 2023-08-19 13:45 | CT Scan Report ---
ABDOMEN AND PELVIS CT WITHOUT CONTRAST CT DOSE: 751.38 mGy.cm HISTORY: Acute weight loss. weight loss, hyponatremia, smoking TECHNIQUE: Multiaxial CT images of the abdomen and pelvis were performed without contrast. A dose lo wering technique was utilized adhering to the principles of ALARA. COMPARISON STUDY: Chest CT of same day. FINDINGS: Extensive coronary artery calcifications. Small pericardial effusion. Emphysema with subple ural reticulation and bibasilar subpleural consolidation with mucous plugging. No free air. The unenhanced spleen, pancreas and adrenal glands are unremarkable. Probable gallbladder sludge. Unr emarkable liver. 3 mm calcification in the interpolar left kidney, likely vascular. 2.2 cm exophytic cyst of the interpolar right kidney. No renal or ureteral calculi or hydronephrosis. Unremarkable uri nary bladder and uterus. Extensive atherosclerosis of the aorta. Fusiform dilation of the distal thoracic aorta just proximal to the diaphragmatic hiatus measures up to 3.3 cm. There is bilobed fusiform aneurysmal dilation of t he abdominal aorta infrarenal segment. The more proximal portion of the aneurysm measures up to 6.1 x 5.7 cm and the more distal portion of the aneurysm just proximal to the iliac bifurcation measures u p to 4.7 x 5.2 cm. There is an apparent thickened aortic wall with mild nonspecific periaortic strand ing. No large retroperitoneal hematoma. Pelvic floor relaxation with rectocele. Nonspecific asymmetri c soft tissue prominence within the region of the right vaginal introitus on image 329. Tiny hiatal hernia. Extensive colonic diverticulosis. No bowel obstruction or bowel wall thickening. Moderate colonic fecal retention. Normal appendix. No acute fracture. Degenerative changes of the spi ne, pelvis and hips. IMPRESSION: 1. Emphysema with bibasilar mucous plugging and bibasilar opacities, likely infectious or inflammator y. Please refer to the chest CT of same day for additional findings. 2. No bowel obstruction or bowel wall thickening. 3. Extensive atherosclerosis with bilobed fusiform infrarenal abdominal aortic aneurysm measuring up to 6.1 cm. There is nonspecific periaortic stranding without retroperitoneal hematoma identified. Fol low-up with vascular surgery recommended. 4. Colonic diverticulosis. 5. Additional findings as above. ACT 112: Negative or not required by law. The above report was generated using voice recognition software. It may contain grammatical, syntax o r spelling errors. Dictated: 08/19/2023 12:12 PM Transcribed: 08/19/2023 12:29 PM Mireya [id number] EDISON_Stephane [id number] Electronically signed by: Costa Gómez M.D. 08/19/2023 1:43 PM
--- NOTE | 2023-08-19 16:46 | Billing Data ---
Date of Service August 19, 2023 Coding Level of Care Code 47487 SUB INP/OBS CARE MIN
[2023-08-19 17:26] LABS: BUN Creatinine Ratio 11.4 (10-20); Calcium 9.3 mg/dl (8.6-10.3); Creatinine Clr Calc Pharmacy 46.6 ml/min; Est GFR (African American) 84.3 ml/min; Est GFR (Non-African American) 72.7 ml/min; Potassium 4.4 mmol/L (3.5-5.1)
[2023-08-19 19:44] LABS: Appearance Urine Clear (Clear); Bacteria Urine Automated Negative (Negative); Bilirubin Urine Negative (Negative); Blood Urine Negative (Negative); Cast Urine Automated 0 /lpf (0-5); Color Urine Yellow; Glucose Urine UA Negative (Negative); Ketones Urine Negative (Negative); Leukocyte Esterase Urine Trace (Negative); Nitrite Urine Negative (Negative); Protein Urine Negative (Negative); RBC Urine Automated 0-4 /hpf (0-4); Specific Gravity Urine 1.004 (1.000-1.030); Urobilinogen Urine Negative (Negative)
[2023-08-19] MEDS: ATORVASTATIN 40 MG TAB PO SCH (21:23)
[2023-08-19 23:24] LABS: BUN Creatinine Ratio 11.5 (10-20); Creatinine Clr Calc Pharmacy 42.3 ml/min; Est GFR (Non-African American) 64.7 ml/min; Potassium 4.4 mmol/L (3.5-5.1)
[2023-08-20] MEDS: LEVOTHYROXINE SODIUM 75 MCG TABLET PO SCH (05:58)
--- NOTE | 2023-08-20 06:56 | Hospitalist Progress Note ---
Date of Service August 20, 2023 Assessment & Plan (1) Hyponatremia: Plan: Pt is a 77 yo female with PMH of hyponatremia, "mini-stroke", COPD, and HTN presenting due to fatigue, malaise, and vomiting. Her Na was found to be 123. 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 - Na 123 upon admission; improved slightly with normal saline, though repeat sodium returned to previous levels. - urine studies pending; serum osm low - per pt, has had multiple studies/work up for her hyponatremia but her PCP has not found an explanation yet for her repeated symptoms and has been trying to set her up with specialty care (either nephro or endocrine) will attempt to obtain records from pt's PCP with [facility] to determine what work up has already occurred -Due to fluids only slightly helping, will hold fluids at this time. - nephro consulted: -Order urine osmolarity, urine sodium, TSH, and random cortisol. Urine was not collected till after tolvaptan was given -Given 15 mg of tolvaptan. Sodium improved to 131. -Given extensive smoking history, will order CT abdomen pelvis and chest. -She will have a home fluid restriction given as SIADH is the most likely cause of her hyponatremia. Can continue salt tabs at time of discharge -CT showed emphysema with mucous plugging and bibasilar opacities. There is also trace pleural effusion with dependent consolidation. -Scarlike opacities seen throughout both lungs measuring up to 1.8 cm in length. Recommend a 6-month follow-up chest CT for reassessment -CT abdomen and pelvis also showed a infrarenal abdominal aortic aneurysm measuring 6.1 cm with nonspecific periaortic stranding without retroperitoneal hematoma. - Abdominal aortic aneurysm -Incidentally noted a 6.1 cm AAA with nonspecific periaortic stranding without retroperitoneal hematoma. -Will consult vascular surgery given the size of AAA as well as straining seen on CT. -Did talk to patient who stated that she was seen by someone last summer for this and that no intervention was required. Still waiting on records from [facility]. -Abdomen/pelvis CTA ordered today by vascular, appreciate results. COPD - continue daily home inhalers or formulary equivalents - pt is a current smoker with >50 pack year hx; per pt, has been screened multiple times over the years for lung cancer with LDCT - with significant hx of smoking and recurrent hyponatremia (and no records of last LDCT), no malignancy seen on CT chest, abdomen or pelvis. HX of CVA - continue home atorvastatin, aspirin HTN - hold home clonidine - will continue home lisinopril but decrease from 60mg to 40 mg Hypothyroidism - continue home levothyroxine 75 mcg daily Diet: regular VTE ppx: lovenox Code: DNR/DNI Dispo: admit to med/tele (2) COPD (chronic obstructive pulmonary disease): (3) History of CVA (cerebrovascular accident): (4) Hypothyroidism: (5) AAA (abdominal aortic aneurysm): (6) SIADH (syndrome of inappropriate ADH production): Admission and Anticipated Discharge Date Admission Date: August 18, 2023 Supervising Physician Co-Signing Physician Notes I personally examined the patient and verified all villalta points of history and exam, discussed case, and agree with decision making with Dr Munoz feeling ok overall no new complaints. No abdominal pain or leg pain. No claudication type symptoms. Family present at the bedside. Reupdated patient on diagnoses and plans, updated family for the first timeanswered all questions to the best my ability and to their satisfaction. gen aaox3 pleasant nad heent nc at mmm breathing unlabored no accessory muscles good effort skin no rashes no pallor or icterus neuro no focal deficits labs, CTs noted hyponatremia - Appears consistent with SIADH thus far most likely root cause is lung disease. responded nicely to tolvaptan. Probably home on fluid restriction and close follow-up. 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 Fairly concerning appearance radiographically, but at the same time she is totally asymptomatic. vascular surgery eval. hold lovenox pending vascular eval. otherwise as above Subjective Patient seen bedside this morning. Patient states that she feels good today and denies any nausea, vomiting, or abdominal pain. Review of Systems Review of Systems: All systems reviewed & are unremarkable except as noted in Subjective Physical Exam Physical Exam: Constitutional: well appearing, no acute distress HEENT: normocephalic, no conjunctival injection CV: RRR, no murmur, no LE edema Respiratory: CTA bilaterally with diminished breath sounds throughout. No rhonchi, wheezes, or crackles. No increased work of breathing GI: soft, nondistended, nontender, + bowel sounds MSK: no gross deformities noted Skin: warm, dry, no rashes Neuro: alert, oriented, no FND noted Psych: mood and affect congruent Results & Data Results & Data Vital Signs (Past 12 Hours) Vital Signs Temp Pulse Pulse Resp BP Pulse Ox O2 Del Method 08/20/23 03:22 36.7 C 82 20 123/61 98 Nasal Cannula 08/19/23 23:33 36.8 C 87 20 121/64 97 Nasal Cannula 08/19/23 22:23 77 08/19/23 19:49 36.3 C L 73 18 125/55 L 92 Room Air 08/19/23 19:35 Room Air O2 Flow Rate 08/20/23 03:22 2 08/19/23 23:33 2 08/19/23 22:23 08/19/23 19:49 08/19/23 19:35 Resident Activity Tracking Resident Involvement: Resident Care Provided Care Provided: Adult Hospital Medicine
[2023-08-20 07:48] LABS: Basophils # (auto) 0.08 K/uL (0.00-0.20); Eosinophils # (auto) 0.38 K/uL (0.00-0.50); Eosinophils % (auto) 4.8 %; Hemoglobin 11.2 g/dl (12.0-16.0); Immature Granulocytes # (auto) 0.02 K/uL (0.01-0.20); Immature Granulocytes % (auto) 0.3 %; Lymphocytes # (auto) 1.51 K/uL (1.20-3.40); Mean Corpuscular Hemoglobin 30.2 pg (25.0-34.0); Mean Corpuscular Hgb Conc 33.9 g/dL (32.0-36.0); Mean Corpuscular Volume 88.9 fL (80.0-100.0); Mean Platelet Volume 8.7 fL (9.4-12.4); Monocytes # (auto) 0.77 K/uL (0.11-0.59); Monocytes % (auto) 9.7 %; Neutrophils # (auto) 5.17 K/uL (1.40-6.50); Neutrophils % (auto) 65.2 %; Platelet Count 363 K/uL (130-400); RDW Coefficient of Variation 13.8 % (11.5-14.5); RDW Standard Deviation 44.9 fL (36.4-46.3); Red Blood Count 3.71 M/uL (4.20-5.40); White Blood Count 7.93 K/ul (4.8-10.8)
[2023-08-20 08:11] LABS: Albumin Level 3.6 gm/dl (3.4-5.0); BUN Creatinine Ratio 12.3 (10-20); Calcium 9.1 mg/dl (8.6-10.3); Creatinine Clr Calc Pharmacy 45.3 ml/min; Est GFR (African American) 81.8 ml/min; Est GFR (Non-African American) 70.5 ml/min; Phosphorus 3.9 mg/dl (2.5-4.9); Potassium 4.2 mmol/L (3.5-5.1)
[2023-08-20] MEDS: lisinopril 40 MG TAB PO SCH (08:22)
[2023-08-20] MEDS: amLODIPine BESYLATE 5 MG TAB PO SCH (08:23)
[2023-08-20] MEDS: ESCITALOPRAM OXALATE 10 MG TAB PO SCH (08:23)
[2023-08-20] MEDS: ASPIRIN 81 MG ECTAB PO SCH (08:23)
[2023-08-20] MEDS: UMECLIDINIUM/VILANTEROL 62.5/25MCG 7 PUFFS/INHALER INH SCH (08:24)
--- NOTE | 2023-08-20 10:10 | Nephrology Progress Note ---
Date of Service August 20, 2023 Assessment & Plan (1) Hyponatremia: (2) COPD (chronic obstructive pulmonary disease): (3) Hypothyroidism: (4) History of CVA (cerebrovascular accident): (5) HTN (hypertension): (6) Generalized weakness: (7) Weight loss: Plan 77-year-old female with history of hyponatremia, admitted with generalized weakness, vomiting and diarrhea and found to have acute hyponatremia, serum sodium 123. Initially she was started on IV fluid with sodium slightly improved to 126 however sodium this morning again dropped to 124. Blood pressure acceptable. TSH, random cortisol, CT C/A/P was negative except severe Emphysema. Off of NS since yesterday. Received 1 dose of Tolvaptan and Na slowly improved to 131 this am, chronically stay around 130. --advised free water restriction to <50 cc/d, increase protein intake, check Na in the afternoon --ok to resume oral salt tab on discharge and have f/u lab next week with PCP. Admission and Anticipated Discharge Date Admission Date: August 18, 2023 Subjective cisco was seen and evaluated this morning. Overall feels well but still tired, no cough, SOB, Nausea. Na improved to 131. BP fair. Review of Systems Review of Systems: All systems reviewed & are unremarkable except as noted in Subjective Physical Exam Constitutional: WD/WN, vitals as above no acute distress Eyes: + anicteric sclerae Respiratory: no respiratory distress and no cough Auscultation: + crackles; no wheezes Cardiovascular: RRR, no murmur, no edema Musculoskeletal: Extremities: extremities normal to inspection Skin: no rashes, warm and dry Neurologic: no focal motor deficits and not confused Psychiatric: Orientation: alert and oriented x 3 Affect: euthymic affect Results & Data Vital Signs (Past 12 Hours) Vital Signs Temp Pulse Pulse Resp BP Pulse Ox O2 Del Method 08/20/23 08:51 Room Air 08/20/23 07:53 36.6 C 75 16 121/68 91 Room Air 08/20/23 07:00 91 H 08/20/23 03:22 36.7 C 82 20 123/61 98 Nasal Cannula 08/19/23 23:33 36.8 C 87 20 121/64 97 Nasal Cannula 08/19/23 22:23 77 O2 Flow Rate 08/20/23 08:51 08/20/23 07:53 08/20/23 07:00 08/20/23 03:22 2 08/19/23 23:33 2 08/19/23 22:23 PG Care Time/CCT Total # of Minutes Spent Total Time Spent with Patient: Total time spent is greater than 50% in coordination of care (as documented) at patient's floor/unit and/or counseling patient: Coding Level of Care Code 51659 SUB INP/OBS CARE 2/35MIN Diagnoses Hyponatremia E87.1 COPD (chronic obstructive pulmonary disease) J44.9 Hypothyroidism E03.9 History of CVA (cerebrovascular accident) Z86.73 HTN (hypertension) I10 Generalized weakness R53.1 Weight loss R63.4
[2023-08-20] MEDS: ACETAMINOPHEN 325 MG TAB PO PRN ×2 (10:25→16:07)
[2023-08-20] MEDS: FERROUS SULFATE 325 MG TAB PO SCH (10:26)
[2023-08-20] MEDS ORDERED: OPTIRAY 320 125ml IV ONE (12:28)
--- NOTE | 2023-08-20 13:19 | CT Scan Report ---
CT ANGIOGRAM OF THE ABDOMEN AND PELVIS COMBO CLINICAL HISTORY: Abdominal aortic aneurysm. COMPARISON STUDY: Abdominal CT dated 08/19/2023. TECHNIQUE: Before and following the IV administration of 120 cc of Optiray 320, CT angiogram of the a bdomen and pelvis was performed from the lung bases the proximal femora. Images are reviewed in the a xial, sagittal, and coronal planes. 3-D MIPS images are created and assessed. IV contrast was adminis tered without complication. A dose lowering technique was utilized adhering to the principles of ALA RA. CT DOSE: 609.32 mGy.cm FINDINGS: Lower chest: The heart is top normal in size noting trace pericardial effusion. The coronary arteries are densely calcified. There is a small hiatal hernia. Advanced emphysematous change is noted. The l arnaldo bases. There are trace pleural effusions with dependent airspace opacities. Intraluminal debris/m ucus plugging is seen in the lower lobe airways. Liver: The contrast-enhanced liver is normal in size and contour. Attenuation is heterogeneous. There is no intrahepatic biliary ductal dilatation. Foci of subcapsular arterial enhancement in the hepati c dome likely represents shunt vascularity. Gallbladder: Unremarkable. Spleen: Normal in size and attenuation noting heterogeneous arterial phase enhancement. Pancreas: Unremarkable. Adrenal glands: Unremarkable. Kidneys: The contrast enhanced kidneys are normal in size and without hydronephrosis. No renal calcul i are identified on the unenhanced series. The kidneys enhance symmetrically. Bilateral renal cysts m easure up to 2.6 cm. Additional subcentimeter cortical hypodensities also likely represent cysts but are too small for definitive characterization. Abdominal aorta and iliac arteries: There is advanced atherosclerotic calcification of the abdominal aorta. There is a large bilobed infrarenal abdominal aortic aneurysm. The more superior lobulation me asures 5.3 x 5.6 cm (AP x transverse) and the more inferior lobulation measures 5.1 x 6.0 cm. The ane urysm sac measures 12.6 cm in craniocaudal length. This originates less than 1 cm below the takeoff o f the renal arteries, and terminates at the bifurcation. The iliac arteries are diminutive. There is high-grade stenosis at the origin of the right common iliac artery seen on image #257. There is compl ete long segment thrombosis of the right common iliac artery. Reconstitution of flow is seen just abo ve the iliac bifurcation. The left internal and external iliac arteries are patent. Major branches of the abdominal aorta: The celiac trunk and superior mesenteric arteries are patent. 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 This is reconstituted via retrograde flow. There is a large accessory right lobe hepatic artery wh ich arises from the superior mesenteric artery. The splenic artery is patent. There is at least moder ate stenosis of the origin of the right renal artery. No renal artery stenosis is seen on the left. T here is a tiny accessory left upper pole renal artery seen on image #49. Bowel: There is advanced colonic diverticulosis without CT evidence of acute diverticulitis. No bowel obstruction is seen. Moderate fecal retention is noted throughout the colon. The appendix is well-v isualized and normal. Peritoneum: There is no intraperitoneal free air or abdominal ascites. Lymphadenopathy: None. Pelvic viscera: The bladder, uterus, and adnexa are normal as visualized. Skeletal structures: The skeletal structures are osteopenic. Mild lumbosacral spondylosis is observed . No destructive bony lesions are seen. IMPRESSION: 1. There is a large bilobed infrarenal abdominal aortic aneurysm as detailed above. The larger lobula tion measures up to 6 cm. 2. 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 3. There is high-grade focal stenosis at the origin of the right common iliac artery. 4. There is occlusion at the origin of the inferior mesenteric artery. The vessel is reconstituted vi a retrograde flow. 5. There is at least moderate stenosis at the origin of the right renal artery. 6. Emphysema. 7. There are trace pleural effusions with bibasilar airspace opacities. Correlate clinical data for e vidence of an infectious/inflammatory pneumonitis. 8. Advanced colonic diverticulosis without CT evidence of acute diverticulitis. 9. Additional findings as above. ACT 112: Negative or not required by law. Electronically signed by: Sukh Lowery M.D. 08/20/2023 1:18 PM
[2023-08-20 15:42] LABS: BUN Creatinine Ratio 15.5 (10-20); Calcium 9.1 mg/dl (8.6-10.3); Creatinine Clr Calc Pharmacy 43.7 ml/min; Est GFR (African American) 78.2 ml/min; Est GFR (Non-African American) 67.5 ml/min; Potassium 4.2 mmol/L (3.5-5.1)
--- NOTE | 2023-08-20 17:40 | Billing Data ---
Date of Service August 20, 2023 Coding Level of Care Code 43819 SUB INP/OBS CARE MIN
[2023-08-20] MEDS: ATORVASTATIN 40 MG TAB PO SCH (20:05)
[2023-08-21] MEDS: LEVOTHYROXINE SODIUM 75 MCG TABLET PO SCH (06:10)
[2023-08-21] MEDS: ACETAMINOPHEN 325 MG TAB PO PRN ×2 (07:17→17:01)
[2023-08-21] MEDS: ESCITALOPRAM OXALATE 10 MG TAB PO SCH (07:18)
[2023-08-21] MEDS: ASPIRIN 81 MG ECTAB PO SCH (07:18)
[2023-08-21] MEDS: lisinopril 40 MG TAB PO SCH (07:18)
[2023-08-21] MEDS: amLODIPine BESYLATE 5 MG TAB PO SCH (07:18)
[2023-08-21] MEDS: UMECLIDINIUM/VILANTEROL 62.5/25MCG 7 PUFFS/INHALER INH SCH (07:21)
[2023-08-21 07:33] LABS: Hematocrit (blood only) 35.2 % (37.0-47.0); Hemoglobin 11.7 g/dl (12.0-16.0); Mean Corpuscular Hemoglobin 29.8 pg (25.0-34.0); Mean Corpuscular Hgb Conc 33.2 g/dL (32.0-36.0); Mean Corpuscular Volume 89.6 fL (80.0-100.0); Mean Platelet Volume 8.7 fL (9.4-12.4); Platelet Count 357 K/uL (130-400); RDW Coefficient of Variation 13.9 % (11.5-14.5); RDW Standard Deviation 45.2 fL (36.4-46.3); Red Blood Count 3.93 M/uL (4.20-5.40); White Blood Count 7.81 K/ul (4.8-10.8)
[2023-08-21 07:59] LABS: Albumin Globulin Ratio 1.1 (0.9-2); Albumin Level 3.9 gm/dl (3.4-5.0); BUN Creatinine Ratio 14.5 (10-20); Bilirubin,Total 0.7 mg/dl (0.2-1.0); Calcium 9.5 mg/dl (8.6-10.3); Creatinine Clr Calc Pharmacy 43.4 ml/min; Est GFR (African American) 79.4 ml/min; Est GFR (Non-African American) 68.5 ml/min; Globulin 3.6 gm/dl (2.5-4.0); Magnesium 2.1 mg/dl (1.7-2.4); Potassium 4.2 mmol/L (3.5-5.1); Total Protein 7.5 gm/dl (6.0-8.3)
--- NOTE | 2023-08-21 10:05 | Consultation ---
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 Pt also seen by Dr Wilson today. Recommends pt undergo endovascular AAA repair with possible R to L fem fem bypass. Procedure discussed at length with pt, she is in agreement. Planning on SATURDAY 08/26. No known cardiac hx, but will consult cards for clearance. History of Present Illness Reason for Consultation: AAA Attending Physician: Albert Nunez DO History of Present Illness 77 yo f with hx of HTN, hyponatremia likely due to SIADH, COPD, CVA, hypothryoidism, admitted with severe hyponatremia and found to have a large AAA, seen in consultation today for same. Pt states she is aware of her AAA, but was told in the past she did not need surgery for it. States she was seen for it about 2 months ago, but unable to state where. Admits fatigue/malaise and mild chronic LBP from lying in bed. Denies KRISHNAMURTHY, fever, chest pain, SOB, abd pain, N/V, rest pain, claudication, other complaints. CTA abd/pelvis demonstrates large bilobed AAA measuring 6.1cm in diameter at largest. Allergies Allergy/AdvReac Type Severity Reaction Status Date / Time No Known Allergies Allergy Unverified 08/18/23 20:28 Home Medications Medication Instructions Recorded Confirmed Type albuterol sulfate 90 mcg/actuation 2 puff inhalation Q6H PRN SOB or 08/18/23 08/18/23 History aerosol inhaler wheezing amlodipine 10 mg tablet 10 mg PO QAM 08/18/23 08/18/23 History aspirin 81 mg tablet,delayed 81 mg PO QAM 08/18/23 08/18/23 History release atorvastatin 40 mg tablet 40 mg PO HS 08/18/23 08/18/23 History clonidine HCl 0.1 mg tablet 0.1 mg PO DAILY PRN BP greater 08/18/23 08/18/23 History than 170/100 escitalopram oxalate 10 mg tablet 10 mg PO QAM 08/18/23 08/18/23 History ferrous sulfate 325 mg (65 mg 325 mg PO .LUNCH 08/18/23 08/18/23 History iron) tablet levothyroxine 75 mcg tablet 75 mcg PO QAM 08/18/23 08/18/23 History lisinopril 20 mg tablet See Rx Instructions .Route .COMPLEX 08/18/23 08/18/23 History lisinopril 40 mg tablet See Rx Instructions .Route .COMPLEX 08/18/23 08/18/23 History lorazepam 0.5 mg tablet 0.5 mg PO Q6H PRN Anxiety 08/18/23 08/18/23 History sodium chloride 1,000 mg soluble 1,000 mg PO TID 08/18/23 08/18/23 History tablet tiotropium 2.5 mcg-olodaterol 2.5 2 puff inhalation QAM 08/18/23 08/18/23 History mcg/actuation mist for inhalation (Stiolto Respimat) Patient History Medical History Weight loss Generalized weakness HTN (hypertension) Social History Smoking Status: Current every day smoker Tobacco Type: Cigarettes Hx Alcohol Use: No Hx Substance Use: No Preferred Language: Sami Communication Ability: Effective Armor Officer Required: No Beliefs That Will Affect Care: None Current Living Situation: Alone Feels Safe at Home: Yes Assistive Devices: None Review of Systems Review of Systems: All systems reviewed & are unremarkable except as noted in HPI & below Physical Exam Constitutional: WD/WN, vitals as above cooperative and comfortable; not in distress ENMT: Ears: no hearing impairment Neck: trachea midline Respiratory: normal respiratory effort, lungs clear to auscultation Auscultation: + diminished lung sounds Cardiovascular: Rate/Rhythm: regular rate and regular rhythm Vessels: femoral pulses present (R +3, L nonpalpable) and radial pulses present; + abnormal peripheral pulses, + posterior tibial pulses abnormal (nonpalpable BLE) and + dorsalis pedis pulses abnormal (nonpalpable BLE) Extremities: normal capillary refill; no edema Gastrointestinal (Abdomen): Inspection/Auscultation: abdomen normal to inspection and normal bowel sounds Percussion/Palpation: abdomen soft; abdomen nontender Musculoskeletal: no cyanosis or clubbing, extremities motor strength 5/5 Skin: no rashes, warm and dry Neurologic: moves all extremities and awake; no focal motor deficits and not confused Psychiatric: A+Ox3, euthymic affect Results & Data Vital Signs (Past 12 Hours) Vital Signs Temp Pulse Pulse Resp BP Pulse Ox O2 Del Method 08/21/23 07:47 Room Air 08/21/23 07:16 36.4 C L 73 16 104/63 93 Room Air 08/21/23 03:02 36.5 C 72 20 130/62 93 Room Air 08/21/23 00:05 Room Air 08/20/23 23:28 36.5 C 79 20 129/57 L 93 Room Air 08/20/23 21:57 82
--- NOTE | 2023-08-21 10:36 | Hospitalist Progress Note ---
Date of Service August 21, 2023 Assessment & Plan (1) Hyponatremia: Plan: Pt is a 77 yo female with PMH of hyponatremia, "mini-stroke", COPD, and HTN presenting due to fatigue, malaise, and vomiting. Her Na was found to be 123. 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 - Na 123 upon admission; improved slightly with normal saline, though repeat sodium returned to previous levels. - urine studies suggest SIADH - per pt, has had multiple studies/work up for her hyponatremia but her PCP has not found an explanation yet for her repeated symptoms and has been trying to set her up with specialty care (either nephro or endocrine) will attempt to obtain records from pt's PCP with [facility] to determine what work up has already occurred - nephrology consulted -Given 15 mg of tolvaptan earlier in stay. Sodium improved to 131. -She will have a home fluid restriction given as SIADH is the most likely cause of her hyponatremia -Na 129 today -Continue fluid restriction for SIADH Abdominal aortic aneurysm -Incidentally noted on CTAP- 6.1 cm AAA with nonspecific periaortic stranding without retroperitoneal hematoma -Per pt, she was seen by mill representative before for this and no intervention required -Vascular surgery consulted -Abdomen/chest CTA- large bilobed infrarenal AAA up to 6 cm. Thrombosis if LCIA, other b/l occlusive findings noted -Endovascular AAA repair with possible R to L femoral bypass- planned for 08/26 -Cardiology consulted for clearance COPD - continue daily home inhalers or formulary equivalents - pt is a current smoker with >50 pack year hx; per pt, has been screened multiple times over the years for lung cancer with LDCT - with significant hx of smoking and recurrent hyponatremia (and no records of last LDCT), no malignancy seen on CT chest, abdomen or pelvis. HX of CVA - continue home atorvastatin, aspirin HTN - hold home clonidine - will continue home lisinopril (decreased from 60mg to 40 mg earlier in hospitalization) Hypothyroidism - continue home levothyroxine 75 mcg daily Diet: regular VTE ppx: Resume Lovenox, will hold prior to procedure 08/26 Code: DNR/DNI Dispo: Medical/surgical (2) COPD (chronic obstructive pulmonary disease): (3) History of CVA (cerebrovascular accident): (4) Hypothyroidism: (5) AAA (abdominal aortic aneurysm): (6) SIADH (syndrome of inappropriate ADH production): Admission and Anticipated Discharge Date Admission Date: August 18, 2023 Supervising Physician Co-Signing Physician Notes I personally examined the patient and verified all villalta points of history and exam, discussed case, and agree with decision making with Dr Abrams feeling ok overall appreciate vascular surgery input. Discussed diagnoses and plans again with patient and family. gen aaox3 pleasant nad heent nc at mmm breathing unlabored no accessory muscles good effort skin no rashes no pallor or icterus neuro no focal deficits labs, CTs noted hyponatremia - Appears consistent with SIADH thus far most likely root cause is lung disease. responded nicely to tolvaptan. Following fluid restriction, may need to reinstitute salt tabs if she continues to fall despite fluid restriction, but she noted she really did not like them, I am hoping that we can maintain her on fluid restriction alone now that she understands why and has a willingness to follow through. AAA - For repair next week DVT prophylaxisLovenox otherwise as above Subjective Acute events overnight- none. Pt examined at bedside. She feels well, denies any chest pain, lightheadedness, dyspnea, or any acute complaints. Review of Systems Review of Systems: Per HPI/Subjective Physical Exam Physical Exam: Constitutional: well appearing, no acute distress HEENT: normocephalic, no conjunctival injection CV: RRR, no murmur, no LE edema Respiratory: CTA bilaterally with diminished breath sounds throughout. No rhonchi, wheezes, or crackles. No increased work of breathing GI: soft, nondistended, nontender, + bowel sounds MSK: no gross deformities noted Skin: warm, dry, no rashes Neuro: alert, oriented, no FND noted Psych: mood and affect congruent Results & Data Results & Data Vital Signs (Past 12 Hours) Vital Signs Temp Pulse Resp BP Pulse Ox O2 Del Method 08/21/23 07:47 Room Air 08/21/23 07:16 36.4 C L 73 16 104/63 93 Room Air 08/21/23 03:02 36.5 C 72 20 130/62 93 Room Air 08/21/23 00:05 Room Air 08/20/23 23:28 36.5 C 79 20 129/57 L 93 Room Air Resident Activity Tracking Resident Involvement: Resident Care Provided Care Provided: Adult Hospital Medicine
[2023-08-21] MEDS: FERROUS SULFATE 325 MG TAB PO SCH (10:59)
--- NOTE | 2023-08-21 16:02 | Billing Data ---
Date of Service August 21, 2023 Coding Level of Care Code 22454 SUB INP/OBS CARE
--- NOTE | 2023-08-21 18:01 | XCELERA ---
[id number]
--- NOTE | 2023-08-21 18:05 | Cardiology Consultation ---
Date of Consultation August 21, 2023 Assessment & Plan (1) Coronary artery calcification: (2) CAD (coronary artery disease): (3) Dyspnea on exertion: (4) HTN (hypertension): (5) Pericardial effusion: (6) AAA (abdominal aortic aneurysm): Plan ASSESSMENT/PLAN: 1. Presumed CAD/coronary artery calcifications: Based on CT imaging, has advanced atherosclerotic disease involving other vessels and noted coronary artery calcifications. Given risk factors, including significant smoking history, would presume underlying CAD. No angina but cannot exclude ischemic heart disease contributing to worsening dyspnea on exertion. Would manage as if she has CAD with high intensity statin therapy, aspirin, blood pressure management. Echo ordered with normal LV systolic function. 2. Dyspnea on exertion: She appears euvolemic. Has noted COPD but also significant atherosclerotic disease and cannot exclude ischemic heart disease as playing a role in her dyspnea. Would generally recommend ischemic evaluation, such as stress testing. With her AAA, would recommend myocardial perfusion study which is not currently available at this facility for the next few weeks due to construction. Optimize COPD. 3. Hypertension: Blood pressure has been well-controlled here. Continue current regimen. 4. Pericardial effusion: Apparently not new but no prior studies available for comparison. Currently pericardial effusion is small and does not appear to have any hemodynamic significance. Can be followed periodically in the outpatient setting. 5. AAA: Reached out to vascular, Aisha Baeza PA-C. Surgery is not emergent but urgent and planned to be done mid next week during this hospitalization. 6. Preoperative cardiac assessment: If elective, would recommend postponing surgery and performing myocardial perfusion study, which is not currently available at this facility. If urgent/emergent, would manage as high risk from a cardiac perspective. Will defer to hospitalist service to optimize COPD and other comorbidities leading up to surgery. Given that this surgery is deemed urgent by vascular, would defer noninvasive ischemic evaluation unless it would regional climate change analyst from a vascular perspective. 7. Disposition: I will be away from the hospital for the next week. Dr. Brito will be rounding. Patient was signed out to Dr. Brito. Please call Dr. Brito with any further questions or concerns. Cardiology will otherwise sign off for now. Thank you for allowing me to participate in the care of your patient. Please call for any other questions or concerns. Sincerely, Josh Squires M.D. History of Present Illness Reason for Consultation: Preoperative cardiac assessment Requesting Physician: Aisha Baeza Attending Physician: Albert Nunez DO History of Present Illness Ms. Denton is a very pleasant 77-year-old female with a history significant for COPD, hypertension, TIA, AAA, pericardial effusion, and hyponatremia. She has an extensive smoking history. She was admitted on 08/18/2023 after presenting with fatigue, malaise, and vomiting. She has had issues with hyponatremia and reported issues with hypertension and a history of AAA and pericardial effusion. During this hospital stay, she has been seen by nephrology and vascular surgery. Vascular surgery plans on performing AAA repair next week. She has chronic dyspnea on exertion and states it has progressively worsened. She would walk around the store such as [employer] but now has difficulty doing such due to her breathing. She states that her energy level has declined since COVID vaccination 2.5 years ago. She denies chest pain, syncope, near syncope, palpitations, edema, melena, hematochezia, or hematuria. She denies orthopnea. Review of systems: As above. Review of systems otherwise negative/unremarkable. Family history: No known premature CAD. Mother had PCI in her 80s. Social history: Smokes 1 pack/day but had smoked up to 1.5 pack/day. Started smoking at the age of 18. Denies alcohol or drug abuse. . Lives alone. 3 children (1 son and 2 daughters). She was unaccompanied. Allergies Allergy/AdvReac Type Severity Reaction Status Date / Time No Known Allergies Allergy Unverified 08/18/23 20:28 Home Medications Medication Instructions Recorded Confirmed Type albuterol sulfate 90 mcg/actuation 2 puff inhalation Q6H PRN SOB or 08/18/23 08/18/23 History aerosol inhaler wheezing amlodipine 10 mg tablet 10 mg PO QAM 08/18/23 08/18/23 History aspirin 81 mg tablet,delayed 81 mg PO QAM 08/18/23 08/18/23 History release atorvastatin 40 mg tablet 40 mg PO HS 08/18/23 08/18/23 History clonidine HCl 0.1 mg tablet 0.1 mg PO DAILY PRN BP greater 08/18/23 08/18/23 History than 170/100 escitalopram oxalate 10 mg tablet 10 mg PO QAM 08/18/23 08/18/23 History ferrous sulfate 325 mg (65 mg 325 mg PO .LUNCH 08/18/23 08/18/23 History iron) tablet levothyroxine 75 mcg tablet 75 mcg PO QAM 08/18/23 08/18/23 History lisinopril 20 mg tablet See Rx Instructions .Route .COMPLEX 08/18/23 08/18/23 History lisinopril 40 mg tablet See Rx Instructions .Route .COMPLEX 08/18/23 08/18/23 History lorazepam 0.5 mg tablet 0.5 mg PO Q6H PRN Anxiety 08/18/23 08/18/23 History sodium chloride 1,000 mg soluble 1,000 mg PO TID 08/18/23 08/18/23 History tablet tiotropium 2.5 mcg-olodaterol 2.5 2 puff inhalation QAM 08/18/23 08/18/23 History mcg/actuation mist for inhalation (Stiolto Respimat) Patient History Medical History COPD (chronic obstructive pulmonary disease) AAA (abdominal aortic aneurysm) Weight loss Generalized weakness HTN (hypertension) Social History Smoking Status: Current every day smoker Tobacco Type: Cigarettes Hx Alcohol Use: No Hx Substance Use: No Preferred Language: Italian Communication Ability: Effective [employer] Wigs Required: No Beliefs That Will Affect Care: None Current Living Situation: Alone Feels Safe at Home: Yes Assistive Devices: None Physical Exam Physical Exam: Gen.: No acute distress. Alert and oriented. HEENT: Anicteric sclera. Neck: No JVD. Bilateral carotid bruit. Normal carotid upstrokes bilaterally. Cardiac: Regular. Normal S1 and S2. 1/6 early peaking systolic ejection murmur best heard at the right upper sternal border. Pulmonary: Decreased breath sounds bilaterally, but otherwise clear to auscu ltation bilaterally without wheezes, rales, or rhonchi. Abdomen: Soft, nontender, nondistended, with normoactive bowel sounds. Extremities: 2+ radial pulses bilaterally. 2+ posterior tibialis pulses bilaterally. No edema or cyanosis. Psychiatric: Affect appears appropriate. Results & Data Vital Signs (Past 12 Hours) Vital Signs Temp Pulse Pulse Resp BP Pulse Ox O2 Del Method 08/21/23 16:02 36.6 C 79 16 112/51 L 91 Room Air 08/21/23 14:04 82 08/21/23 11:37 36.3 C L 70 16 112/53 L 91 Room Air 08/21/23 07:47 Room Air 08/21/23 07:16 36.4 C L 73 16 104/63 93 Room Air 08/21/23 07:00 75 Laboratory Results Laboratory Results - last 24 hr 08/21/23 06:52 WBC 7.81 RBC 3.93 L Hgb 11.7 L Hct 35.2 L MCV 89.6 MCH 29.8 MCHC 33.2 RDW Std Deviation 45.2 RDW Coeff of Eve 13.9 Plt Count 357 MPV 8.7 L Sodium 129 L Potassium 4.2 Chloride 96 L Carbon Dioxide 26 Anion Gap 7 BUN 12 Creatinine 0.83 Est Cr Clr Drug Dosing 43.4 Est GFR ( Amer) 79.4 Est GFR (Non-Af Amer) 68.5 BUN/Creatinine Ratio 14.5 Glucose 82 Calcium 9.5 Magnesium 2.1 Total Bilirubin 0.7 AST 34 ALT 26 Alkaline Phosphatase 94 Total Protein 7.5 Albumin 3.9 Globulin 3.6 Albumin/Globulin Ratio 1.1 Diagnostic Findings ECHO 08/21/23: 1. Normal left ventricular size and systolic function. EF 65-70%. No regional wall motion abnormalities. Mild concentric left ventricular hypertrophy. 2. Sclerotic aortic valve without significant stenosis. 3. Small pericardial effusion without echocardiographic evidence of tamponade physiology. 4. Normal estimated right ventricular systolic pressure. Estimated RVSP 27 mmHg. 5. No prior study available for comparison. Telemetry personally reviewed: Sinus rhythm. No arrhythmia. Labs reviewed and notable for mild anemia, stable renal function, normal potassium, hyponatremia, normal transaminase levels, normal TSH. History and physical report reviewed. CTA abdomen/pelvis 08/20/2023: Large bilobed infrarenal AAA up to 6 cm. 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 High-grade focal stenosis of the origin of the right common iliac artery. 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 At least moderate stenosis at the origin of the right renal artery. Emphysema. Bibasilar airspace opacities. Diverticulosis. Densely calcified coronary arteries. Advanced emphysematous change of the lung. Findings per radiology. CT chest 08/19/2023: Advanced emphysema. Scarlike opacities throughout both lungs. Small pericardial effusion. Densely calcified coronary arteries. ECG personally reviewed from 08/18/2023: Sinus rhythm 78 bpm. Cannot rule out anterior infarct. Medications Administered Current Inpatient Medications Acetaminophen (Acetaminophen 325 Mg Tab) 650 mg PO Q4H PRN PRN Reason: pain/fever Stop: 09/17/23 21:37 Last Admin: 08/21/23 17:01 Dose: 650 mg Albuterol (Albuterol Hfa 8 Gm Inhaler) 2 puffs INH Q6H PRN PRN Reason: SOB or wheezing Stop: 09/17/23 23:21 Amlodipine Besylate (Amlodipine Besylate 5 Mg Tab) 10 mg PO [facility] Stop: 09/18/23 08:59 Last Admin: 08/21/23 07:18 Dose: 10 mg Aspirin (Aspirin 81 Mg Ectab) 81 mg PO [facility] Stop: 09/18/23 08:59 Last Admin: 08/21/23 07:18 Dose: 81 mg Atorvastatin Calcium (Atorvastatin 40 Mg Tab) 40 mg PO [facility] Stop: 09/18/23 20:59 Last Admin: 08/20/23 20:05 Dose: 40 mg Enoxaparin Sodium (Enoxaparin Inj 40 Mg/0.4 Ml Syr) 40 mg SQ [facility] Stop: 09/17/23 21:44 Last Admin: 08/18/23 21:57 Dose: Not Given Escitalopram Oxalate (Escitalopram Oxalate 10 Mg Tab) [facility] Stop: 09/18/23 08:59 Last Admin: 08/21/23 07:18 Dose: 10 mg Ferrous Sulfate (Ferrous Sulfate 325 Mg Tab) 325 mg PO QDL [facility] Stop: 09/18/23 11:29 Last Admin: 08/21/23 10:59 Dose: 325 mg Levothyroxine Sodium (Levothyroxine Sodium 75 Mcg Tablet) 75 mcg PO DAILYBB [facility] Stop: 09/18/23 06:29 Last Admin: 08/21/23 06:10 Dose: 75 mcg Lisinopril (Lisinopril 40 Mg Tab) [facility] Stop: 09/18/23 08:59 Last Admin: 08/21/23 07:18 Dose: 40 mg Lorazepam (Lorazepam 0.5 Mg Tab) 0.5 mg PO Q6H PRN PRN Reason: Anxiety Stop: 09/17/23 23:21 Melatonin (Melatonin 3 Mg Tab) 3 mg PO HS PRN PRN Reason: Insomnia Stop: 09/17/23 21:37 Ondansetron HCl (Ondansetron Inj 2 Mg/Ml 2 Ml Vial) 4 mg IV Q6H PRN PRN Reason: Nausea Stop: 09/17/23 21:37 Polyethylene Glycol (Polyethylene (Miralax) 17 Gm Pack) 17 gm PO DAILY PRN PRN Reason: Constipation Stop: 09/17/23 21:37 Umeclidinium/Vilanterol (Umeclidinium/Vilanterol 62.5/25mcg 7 Puffs/Inhaler) 1 puffs INH QAM [facility] Stop: 09/18/23 08:59 Last Admin: 08/21/23 07:21 Dose: 1 puffs PG Care Time/CCT Total # of Minutes Spent Total Time Spent with Patient: Total time spent is greater than 50% in coordination of care (as documented) at patient's floor/unit and/or counseling patient: Coding Level of Care Code 19981 INT INP/OBS CARE 375MIN Diagnoses Coronary artery calcification I25.10; I25.84 CAD (coronary artery disease) I25.10 Dyspnea on exertion R06.09 HTN (hypertension) I10 Pericardial effusion I31.39 AAA (abdominal aortic aneurysm) I71.40
[2023-08-21] MEDS ORDERED: BENZONATATE 100 MG CAPSULE PO ONE (20:10)
[2023-08-21] MEDS: ATORVASTATIN 40 MG TAB PO SCH (20:42)
[2023-08-21] MEDS: ENOXAPARIN INJ 40 MG/0.4 ML SYR SQ SCH (20:43)
--- NOTE | 2023-08-21 21:27 | Electrocardiogram Report ---
Test Reason : Blood Pressure : / mmHG Vent. Rate : 078 BPM Atrial Rate : 078 BPM P-R Int : 192 ms QRS Dur : 076 ms QT Int : 386 ms P-R-T Axes : 084 012 076 degrees QTc Int : 440 ms Normal sinus rhythm Cannot rule out Anterior infarct , age undetermined Abnormal ECG No previous ECGs available Confirmed by Se Squires ([id number]) on 08/21/2023 9:27:04 PM Referred By: Lissette Dailey Confirmed By:Se Squires
[2023-08-22] MEDS: LEVOTHYROXINE SODIUM 75 MCG TABLET PO SCH (06:01)
[2023-08-22] MEDS: ACETAMINOPHEN 325 MG TAB PO PRN ×3 (06:02→20:35)
--- NOTE | 2023-08-22 06:42 | Hospitalist Progress Note ---
Date of Service August 22, 2023 Assessment & Plan (1) Hyponatremia: Plan: Pt is a 77 yo female with PMH of hyponatremia, "mini-stroke", COPD, and HTN presenting due to fatigue, malaise, and vomiting. Her Na was found to be 123. Hyponatremia secondary to SIADH -Na of 123 on admission improved slightly with normal saline before dropping to previous levels on repeat labs. -Urine study subsequently ordered: likely SIADH. -Per patient, hyponatremia known, had been investigated multiple times in outpatient setting. However, no explanation to date. Had been unsuccessful in securing specialist referral to either endocrine or nephrology (PCP-Lavalette Newbury). -S/p tolvaptan 15 mg given initially during this admission (Na improved briefly to 131). -Nephrology consulted: * Concurred with diagnosis of SIADH; recommended fluid restriction * Trending sodium Q3D Abdominal Aortic Aneurysm -Incidentally noted on CT A/P: 6.1 cm AAA with nonspecific periaortic stranding without retroperitoneal hematoma. 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 COPD -Current smoker (>13-shky-eviv history). -Initial concern for small cell lung cancer, non-small cell lung cancer given smoking history, recurrent hyponatremia. However, no malignancy seen on CT chest or CT abdomen pelvis. -Patient admits to regular lung cancer screening with low-dose CT. * Continue daily home inhalers (or formulary equivalent) Hx of CVA * Continue home atorvastatin, aspirin HTN -Home clonidine held on admission. -Home lisinopril continued (decreased to 40 mg from 60 mg during this admission). * Lisinopril 40 mg, as above Hypothyroidism * Continue home levothyroxine 75 mcg daily Code: DNR/DNI Dispo: Med-Surg telemetry FEN/GI: Regular DVT Prophylaxis: Lovenox 40 mg q24h hold after tonight (08/22/2023) PT/OT: No Consults: Vascular surgery, cardiology, nephrology Case Management: No (2) COPD (chronic obstructive pulmonary disease): (3) History of CVA (cerebrovascular accident): (4) Hypothyroidism: (5) AAA (abdominal aortic aneurysm): (6) SIADH (syndrome of inappropriate ADH production): Admission and Anticipated Discharge Date Admission Date: August 18, 2023 Supervising Physician Co-Signing Physician Notes I personally examined the patient and verified all villalta points of history and exam, discussed case, and agree with decision making with Dr Saavedra feels fine. no complaints. updated pt/ family. gen aaox3 pleasant nad heent nc at mmm breathing unlabored no accessory muscles good effort skin no rashes no pallor or icterus neuro no focal deficits labs, CTs noted hyponatremia - Appears consistent with SIADH thus far most likely root cause is lung disease. responded nicely to tolvaptan. Following fluid restriction, may need to reinstitute salt tabs if she continues to fall despite fluid restriction, but she noted she really did not like them, I am hoping that we can maintain her on fluid restriction alone now that she understands why and has a willingness to follow through. continue to follow BMP AAA - For repair next week, inpatient until then DVT prophylaxisLovenox otherwise as above Subjective OOB to chair for breakfast this morning. Denies any acute events or complaints overnight. Review of Systems Review of Systems: All systems reviewed & are unremarkable except as noted in HPI & below Physical Exam Physical Exam: General: No acute distress HEENT: PERRLA. Normal conjunctiva, anicteric sclera. Oropharynx normal. Respiratory: Normal respiratory effort, CTABL. Cardiovascular: RRR without murmurs, gallops, or rubs. No pedal edema. GI: Soft abdomen with normal bowel sounds heard on auscultation. Nontender x4 quadrants Neuro: Alert and oriented x3. Results & Data Results & Data Vital Signs (Past 12 Hours) Vital Signs Temp Pulse Pulse Resp BP Pulse Ox O2 Del Method 08/22/23 04:00 36.6 C 76 18 106/60 93 Room Air 08/21/23 23:58 36.8 C 80 16 114/61 91 Room Air 08/21/23 22:20 Room Air 08/21/23 21:58 79 08/21/23 19:44 36.5 C 74 18 111/63 92 Room Air Resident Activity Tracking Resident Involvement: Resident Care Provided Care Provided: Adult Hospital Medicine
[2023-08-22] MEDS: amLODIPine BESYLATE 5 MG TAB PO SCH (08:24)
[2023-08-22] MEDS: ASPIRIN 81 MG ECTAB PO SCH (08:24)
[2023-08-22] MEDS: ESCITALOPRAM OXALATE 10 MG TAB PO SCH (08:24)
[2023-08-22] MEDS: lisinopril 40 MG TAB PO SCH (08:24)
[2023-08-22] MEDS: UMECLIDINIUM/VILANTEROL 62.5/25MCG 7 PUFFS/INHALER INH SCH (08:25)
[2023-08-22 08:53] LABS: Hematocrit (blood only) 33.7 % (37.0-47.0); Hemoglobin 11.8 g/dl (12.0-16.0); Mean Corpuscular Hemoglobin 30.3 pg (25.0-34.0); Mean Corpuscular Volume 86.4 fL (80.0-100.0); Mean Platelet Volume 8.6 fL (9.4-12.4); Platelet Count 347 K/uL (130-400); RDW Coefficient of Variation 13.9 % (11.5-14.5); RDW Standard Deviation 43.4 fL (36.4-46.3); White Blood Count 7.88 K/ul (4.8-10.8)
[2023-08-22] MEDS: FERROUS SULFATE 325 MG TAB PO SCH (11:22)
--- NOTE | 2023-08-22 13:35 | Billing Data ---
Date of Service August 22, 2023 Coding Level of Care Code 90559 SUB INP/OBS CARE MIN
[2023-08-22] MEDS: BENZONATATE 100 MG CAPSULE PO PRN (20:35)
[2023-08-22] MEDS: ATORVASTATIN 40 MG TAB PO SCH (20:36)
[2023-08-22] MEDS: ENOXAPARIN INJ 40 MG/0.4 ML SYR SQ SCH (20:37)
[2023-08-23] MEDS: LEVOTHYROXINE SODIUM 75 MCG TABLET PO SCH (05:49)
[2023-08-23] MEDS: ASPIRIN 81 MG ECTAB PO SCH (08:22)
[2023-08-23] MEDS: amLODIPine BESYLATE 5 MG TAB PO SCH (08:22)
[2023-08-23] MEDS: ESCITALOPRAM OXALATE 10 MG TAB PO SCH (08:23)
[2023-08-23] MEDS: lisinopril 40 MG TAB PO SCH (08:23)
[2023-08-23] MEDS: UMECLIDINIUM/VILANTEROL 62.5/25MCG 7 PUFFS/INHALER INH SCH (08:23)
[2023-08-23 08:28] LABS: BUN Creatinine Ratio 20.5 (10-20); Calcium 9.5 mg/dl (8.6-10.3); Creatinine Clr Calc Pharmacy 39.7 ml/min; Est GFR (Non-African American) 63.8 ml/min; Potassium 4.3 mmol/L (3.5-5.1)
--- NOTE | 2023-08-23 08:38 | Hospitalist Progress Note ---
Date of Service August 23, 2023 Assessment & Plan (1) Hyponatremia: Plan: Pt is a 77 yo female with PMH of hyponatremia, "mini-stroke", COPD, and HTN presenting due to fatigue, malaise, and vomiting. Her Na was found to be 123. Hyponatremia secondary to SIADH -Na of 123 on admission improved slightly with normal saline before dropping to previous levels on repeat labs. -Urine study subsequently ordered: likely SIADH. -Per patient, hyponatremia known, had been investigated multiple times in outpatient setting. However, no explanation to date unsuccessful to date securing specialist referral to endocrine/nephrology (PCP-Martin Dante). -S/p tolvaptan 15 mg given initially during this admission (Na improved briefly to 131). Current Na-129 (08/23). -Nephrology consulted: * Fluid restriction: 1.8 L * Trending sodium on Q3D BMP Abdominal Aortic Aneurysm -Incidentally noted on CT A/P: 6.1 cm AAA with nonspecific periaortic stranding without retroperitoneal hematoma. 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 COPD -Current smoker (>75-znyq-vzzp history). -Initial concern for small cell lung cancer, non-small cell lung cancer given smoking history, recurrent hyponatremia. However, no malignancy seen on CT chest or CT abdomen pelvis. -Patient admits to regular lung cancer screening with low-dose CT. * Continue daily home inhalers (or formulary equivalent) * As needed albuterol inhaler every 6 hours, benzonatate as needed up to 3 times daily for cough Hx of CVA * Continue home atorvastatin, aspirin HTN -Home clonidine held on admission. -Home lisinopril continued (decreased to 40 mg from 60 mg during this admission). * Lisinopril 40 mg, as above Hypothyroidism * Continue home levothyroxine 75 mcg daily Code: DNR/DNI Dispo: Med-Surg telemetry FEN/GI: Regular DVT Prophylaxis: Lovenox 40 mg q24h hold on 08/25 before AAA repair PT/OT: No Consults: Vascular surgery, cardiology, nephrology, dietary Case Management: No (2) COPD (chronic obstructive pulmonary disease): (3) History of CVA (cerebrovascular accident): (4) Hypothyroidism: (5) AAA (abdominal aortic aneurysm): (6) SIADH (syndrome of inappropriate ADH production): Admission and Anticipated Discharge Date Admission Date: August 18, 2023 Supervising Physician Co-Signing Physician Notes I personally examined the patient and verified all villalta points of history and exam, discussed case, and agree with decision making with Dr Saavedra feels fine. Her main concern today is discussing her weight loss. seems to eat poorly As far as overall volume and calories. gen aaox3 pleasant nad heent nc at mmm breathing unlabored no accessory muscles good effort skin no rashes no pallor or icterus neuro no focal deficits labs noted hyponatremia - Appears consistent with SIADH thus far most likely root cause is lung disease. responded nicely to tolvaptan. Following fluid restriction, may need to reinstitute salt tabs if she continues to fall despite fluid restriction, but she noted she really did not like them, I am hoping that we can maintain her on fluid restriction alone now that she understands why and has a willingness to follow through. continue to follow BMPNumbers have been reasonably stable AAA - For repair next week, inpatient until then weight loss (Probably mild to moderate protein/calorie malnutrition)discussed weight lossmade a budget analogy. A quick calculation at the bedside had her basal energy expenditure plus activity calculated out to be about 1450 elias a dayused 1500 as the "budget number" to make it easy to discuss. Went through multiple lines of education multiple ways of tracking her calories, discussed how to determine roughly the calories in different foods, discussed that while eating healthy and achieving 1500 elias would be better than eating unhealthy foods and achieving that goal, really to stem the tide of weight loss/malnutrition it would be more important to get to 1500 elias regardless. DVT prophylaxisLovenox otherwise as above Subjective Patient sleeping comfortably on arrival. Did not awaken. No acute events overnight, per nurse log. Review of Systems Review of Systems: All systems reviewed & are unremarkable except as noted in HPI & below Physical Exam Physical Exam: General: Resting comfortably. In no acute distress. HEENT: PERRLA. Normal conjunctiva, anicteric sclera. Oropharynx normal. Respiratory: Normal respiratory effort, CTABL. Cardiovascular: RRR without murmurs, gallops, or rubs. No pedal edema. GI: Soft abdomen with normal bowel sounds heard on auscultation. Nontender x4 quadrants Neuro: Alert and oriented x3. Results & Data Results & Data Vital Signs (Past 12 Hours) Vital Signs Temp Pulse Pulse Resp BP BP Pulse Ox 08/23/23 08:00 36.8 C 76 18 118/58 L 92 08/23/23 07:00 80 08/23/23 04:08 36.5 C 74 18 104/60 94 08/22/23 23:44 36.4 C L 79 18 100/62 92 08/22/23 22:03 77 O2 Del Method 08/23/23 08:00 Room Air 08/23/23 07:00 08/23/23 04:08 Room Air 08/22/23 23:44 Room Air 08/22/23 22:03 Resident Activity Tracking Resident Involvement: Resident Care Provided Care Provided: Adult Hospital Medicine
[2023-08-23] MEDS: FERROUS SULFATE 325 MG TAB PO SCH (11:01)
--- NOTE | 2023-08-23 16:39 | Billing Data ---
Date of Service August 23, 2023 Coding Level of Care Code 01232 SUB INP/OBS CARE MIN
[2023-08-23] MEDS: ENOXAPARIN INJ 40 MG/0.4 ML SYR SQ SCH (21:20)
[2023-08-23] MEDS: ATORVASTATIN 40 MG TAB PO SCH (21:20)
[2023-08-24] MEDS: LEVOTHYROXINE SODIUM 75 MCG TABLET PO SCH (06:08)
[2023-08-24] MEDS: LORazepam 0.5 MG TAB PO PRN ×2 (06:17→20:31)
--- NOTE | 2023-08-24 06:42 | Hospitalist Progress Note ---
Date of Service August 24, 2023 Assessment & Plan (1) Hyponatremia: Plan: Pt is a 77 yo female with PMH of hyponatremia, "mini-stroke", COPD, and HTN presenting due to fatigue, malaise, and vomiting. Her Na was found to be 123. Hyponatremia secondary to SIADH -Na of 123 on admission improved slightly with normal saline before dropping to previous levels on repeat labs. -Urine study subsequently ordered: likely SIADH. -Per patient, hyponatremia known, had been investigated multiple times in outpatient setting. However, no explanation to date unsuccessful to date securing specialist referral to endocrine/nephrology ([facility]). -S/p tolvaptan 15 mg given initially during this admission (Na improved briefly to 131). Current Na-129 (08/23). -Nephrology consulted: -Fluid restriction: 1.8 L -Trending sodium on Q3D BMP Abdominal Aortic Aneurysm -Incidentally noted on CT A/P: 6.1 cm AAA with nonspecific periaortic stranding without retroperitoneal hematoma. 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 COPD -Current smoker (>[id number] history). -Initial concern for small cell lung cancer, non-small cell lung cancer given smoking history, recurrent hyponatremia. However, no malignancy seen on CT chest or CT abdomen pelvis. -Patient admits to regular lung cancer screening with low-dose CT. -Continue daily home inhalers (or formulary equivalent) -As needed albuterol inhaler every 6 hours, benzonatate as needed up to 3 times daily for cough Hx of CVA -Continue home atorvastatin, aspirin HTN -Home clonidine held on admission. -Home lisinopril continued (decreased to 40 mg from 60 mg during this admission). Hypothyroidism -Continue home levothyroxine 75 mcg daily Code: DNR/DNI Dispo: Med-Surg telemetry FEN/GI: Regular DVT Prophylaxis: Lovenox 40 mg q24h hold on 08/25 before AAA repair PT/OT: No Consults: Vascular surgery, cardiology, nephrology, dietary Case Management: No (2) COPD (chronic obstructive pulmonary disease): (3) History of CVA (cerebrovascular accident): (4) Hypothyroidism: (5) AAA (abdominal aortic aneurysm): (6) SIADH (syndrome of inappropriate ADH production): Admission and Anticipated Discharge Date Admission Date: August 18, 2023 Supervising Physician Co-Signing Physician Notes Attending attestation Pt seen and examined in concert with Dr. Munoz. In agreement with the documented findings as noted in the resident documentation with any exceptions or additions as noted here. Considerable improvement in focus and function compared to admission without complaint at present. On examination, S1/S2 nl RRR no MCG. CTAB. Abd NT/ND BS+ve. audible AA bruit Hyponatremia - ongoing improvement with fluid restriction s/p tolvaptan - continue restriction and monitoring with daily labs HTN in the setting of AAA - pending repair by vascular surgery on 08/26/23. Continue amlodipine, lisinopril. COPD - ongoing cough wlel controlled with benzonatate and albuterol. Else see resident documentation as noted. Subjective Patient seen bedside this morning. States that she feels good and feels like she has more energy. Review of Systems Review of Systems: All systems reviewed & are unremarkable except as noted in HPI & below Physical Exam Physical Exam: Constitutional: well appearing, no acute distress HEENT: normocephalic, no conjunctival injection CV: RRR, no murmur, no LE edema Respiratory: CTA bilaterally with diminished breath sounds throughout. No rhonchi, wheezes, or crackles. No increased work of breathing GI: soft, nondistended, nontender, + bowel sounds MSK: no gross deformities noted Skin: warm, dry, no rashes Neuro: alert, oriented, no FND noted Psych: mood and affect congruent Results & Data Results & Data Vital Signs (Past 12 Hours) Vital Signs Temp Pulse Pulse Resp BP Pulse Ox O2 Del Method 08/24/23 03:11 36.6 C 74 18 105/62 95 Room Air 08/23/23 22:53 36.6 C 75 18 122/57 L 93 Room Air 08/23/23 22:05 Room Air 08/23/23 22:03 76 08/23/23 20:06 36.8 C 69 18 100/54 L 93 Room Air
[2023-08-24 07:32] LABS: Basophils % (auto) 1.3 %; Eosinophils % (auto) 6.4 %; Hematocrit (blood only) 32.7 % (37.0-47.0); Hemoglobin 11.3 g/dl (12.0-16.0); Immature Granulocytes # (auto) 0.03 K/uL (0.01-0.20); Immature Granulocytes % (auto) 0.4 %; Lymphocytes # (auto) 2.04 K/uL (1.20-3.40); Lymphocytes % (auto) 26.1 %; Mean Corpuscular Hemoglobin 30.1 pg (25.0-34.0); Mean Corpuscular Hgb Conc 34.6 g/dL (32.0-36.0); Mean Corpuscular Volume 87.2 fL (80.0-100.0); Monocytes # (auto) 0.82 K/uL (0.11-0.59); Monocytes % (auto) 10.5 %; Neutrophils # (auto) 4.32 K/uL (1.40-6.50); Neutrophils % (auto) 55.3 %; Platelet Count 317 K/uL (130-400); RDW Standard Deviation 44.4 fL (36.4-46.3); Red Blood Count 3.75 M/uL (4.20-5.40); White Blood Count 7.81 K/ul (4.8-10.8)
[2023-08-24 07:58] LABS: Creatinine Clr Calc Pharmacy 40.9 ml/min; Est GFR (African American) 77.1 ml/min; Est GFR (Non-African American) 66.6 ml/min
[2023-08-24] MEDS: ESCITALOPRAM OXALATE 10 MG TAB PO SCH (08:11)
[2023-08-24] MEDS: amLODIPine BESYLATE 5 MG TAB PO SCH (08:11)
[2023-08-24] MEDS: ASPIRIN 81 MG ECTAB PO SCH (08:11)
[2023-08-24] MEDS: UMECLIDINIUM/VILANTEROL 62.5/25MCG 7 PUFFS/INHALER INH SCH (08:11)
[2023-08-24] MEDS: lisinopril 40 MG TAB PO SCH (08:11)
[2023-08-24 08:56] LABS: BUN Creatinine Ratio 17.6 (10-20); Calcium 9.5 mg/dl (8.6-10.3); Potassium 4.2 mmol/L (3.5-5.1)
[2023-08-24] MEDS: FERROUS SULFATE 325 MG TAB PO SCH (11:50)
[2023-08-24] MEDS: ACETAMINOPHEN 325 MG TAB PO PRN ×2 (11:53→20:32)
[2023-08-24] MEDS: BENZONATATE 100 MG CAPSULE PO PRN (20:31)
[2023-08-24] MEDS: ATORVASTATIN 40 MG TAB PO SCH (20:31)
[2023-08-24] MEDS: ENOXAPARIN INJ 40 MG/0.4 ML SYR SQ SCH (20:31)
[2023-08-25] MEDS: LEVOTHYROXINE SODIUM 75 MCG TABLET PO SCH (05:31)
--- NOTE | 2023-08-25 06:31 | Hospitalist Progress Note ---
Date of Service August 25, 2023 Assessment & Plan (1) Hyponatremia: Plan: Pt is a 77 yo female with PMH of hyponatremia, "mini-stroke", COPD, and HTN presenting due to fatigue, malaise, and vomiting. Her Na was found to be 123. Hyponatremia secondary to SIADH -Na of 123 on admission improved slightly with normal saline before dropping to previous levels on repeat labs. -Urine study subsequently ordered: likely SIADH. -Per patient, hyponatremia known, had been investigated multiple times in outpatient setting. However, no explanation to date unsuccessful to date securing specialist referral to endocrine/nephrology ([facility]). -S/p tolvaptan 15 mg given initially during this admission (Na improved briefly to 131). Current Na-129 (08/23). -Nephrology consulted: -Fluid restriction: 1.8 L -Trending sodium on Q3D BMP Abdominal Aortic Aneurysm -Incidentally noted on CT A/P: 6.1 cm AAA with nonspecific periaortic stranding without retroperitoneal hematoma. 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 -Will have vascular sx on 08/26. NPO at midnight, holding Lovenox. COPD -Current smoker (>93-[id number] history). -Initial concern for small cell lung cancer, non-small cell lung cancer given smoking history, recurrent hyponatremia. However, no malignancy seen on CT chest or CT abdomen pelvis. -Patient admits to regular lung cancer screening with low-dose CT. -Continue daily home inhalers (or formulary equivalent) -As needed albuterol inhaler every 6 hours, benzonatate as needed up to 3 times daily for cough Hx of CVA -Continue home atorvastatin, aspirin HTN -Home clonidine held on admission. -Home lisinopril continued (decreased to 40 mg from 60 mg during this admission). Hypothyroidism -Continue home levothyroxine 75 mcg daily Code: DNR/DNI Dispo: Med-Surg telemetry FEN/GI: Regular DVT Prophylaxis: Lovenox 40 mg q24h hold on 08/25 before AAA repair PT/OT: No Consults: Vascular surgery, cardiology, nephrology, dietary Case Management: No (2) COPD (chronic obstructive pulmonary disease): (3) History of CVA (cerebrovascular accident): (4) Hypothyroidism: (5) AAA (abdominal aortic aneurysm): (6) SIADH (syndrome of inappropriate ADH production): Admission and Anticipated Discharge Date Admission Date: August 18, 2023 Supervising Physician Co-Signing Physician Notes Attending attestation Pt seen and examined in concert with Dr. Munoz. In agreement with the documented findings as noted in the resident documentation with any exceptions or additions as noted here. Resting comfortably in bed. On examination, S1/S2 nl RRR no MCG. CTAB. Abd NT/ND BS+ve. audible AA bruit Hyponatremia - ongoing improvement with fluid restriction s/p tolvaptan - continue restriction and monitoring with daily labs. Trend BMP tomorrow AM HTN in the setting of AAA - pending repair by vascular surgery on 08/26/23. Continue amlodipine, lisinopril. COPD - ongoing cough well controlled with benzonatate and albuterol. Else see resident documentation as noted. Subjective Patient seen beside states that she is getting better. Feels like she has her strength back. Review of Systems Review of Systems: All systems reviewed & are unremarkable except as noted in Subjective Physical Exam Physical Exam: Constitutional: well appearing, no acute distress HEENT: normocephalic, no conjunctival injection CV: RRR, no murmur, no LE edema Respiratory: CTA bilaterally with diminished breath sounds throughout. No rhonchi, wheezes, or crackles. No increased work of breathing GI: soft, nondistended, nontender, + bowel sounds MSK: no gross deformities noted Skin: warm, dry, no rashes Neuro: alert, oriented, no FND noted Psych: mood and affect congruent Results & Data Results & Data Vital Signs (Past 12 Hours) Vital Signs Temp Pulse Pulse Resp BP Pulse Ox O2 Del Method 08/25/23 04:17 36.5 C 67 20 109/62 92 Room Air 08/24/23 23:14 Room Air 08/24/23 23:14 72 08/24/23 23:13 36.8 C 70 18 114/62 93 Room Air 08/24/23 19:54 36.4 C L 71 18 116/54 L 92 Room Air Resident Activity Tracking Resident Involvement: Resident Care Provided Care Provided: Adult Hospital Medicine
[2023-08-25 07:25] LABS: Basophils # (auto) 0.09 K/uL (0.00-0.20); Basophils % (auto) 1.2 %; Eosinophils # (auto) 0.49 K/uL (0.00-0.50); Eosinophils % (auto) 6.3 %; Hematocrit (blood only) 33.4 % (37.0-47.0); Hemoglobin 11.5 g/dl (12.0-16.0); Immature Granulocytes # (auto) 0.02 K/uL (0.01-0.20); Immature Granulocytes % (auto) 0.3 %; Lymphocytes # (auto) 2.37 K/uL (1.20-3.40); Lymphocytes % (auto) 30.5 %; Mean Corpuscular Hemoglobin 30.1 pg (25.0-34.0); Mean Corpuscular Hgb Conc 34.4 g/dL (32.0-36.0); Mean Corpuscular Volume 87.4 fL (80.0-100.0); Mean Platelet Volume 9.3 fL (9.4-12.4); Monocytes # (auto) 0.77 K/uL (0.11-0.59); Monocytes % (auto) 9.9 %; Neutrophils # (auto) 4.04 K/uL (1.40-6.50); Neutrophils % (auto) 51.8 %; Platelet Count 303 K/uL (130-400); RDW Coefficient of Variation 14.1 % (11.5-14.5); Red Blood Count 3.82 M/uL (4.20-5.40); White Blood Count 7.78 K/ul (4.8-10.8)
[2023-08-25] MEDS: ASPIRIN 81 MG ECTAB PO SCH (08:24)
[2023-08-25] MEDS: amLODIPine BESYLATE 5 MG TAB PO SCH (08:24)
[2023-08-25] MEDS: ESCITALOPRAM OXALATE 10 MG TAB PO SCH (08:25)
[2023-08-25] MEDS: lisinopril 40 MG TAB PO SCH (08:25)
[2023-08-25] MEDS: UMECLIDINIUM/VILANTEROL 62.5/25MCG 7 PUFFS/INHALER INH SCH (08:26)
[2023-08-25] MEDS: FERROUS SULFATE 325 MG TAB PO SCH (12:14)
[2023-08-25] MEDS: LORazepam 0.5 MG TAB PO PRN (16:39)
[2023-08-25] MEDS: ATORVASTATIN 40 MG TAB PO SCH (20:12)
[2023-08-25] MEDS: ACETAMINOPHEN 325 MG TAB PO PRN (20:15)
[2023-08-26] MEDS: LEVOTHYROXINE SODIUM 75 MCG TABLET PO SCH (06:46)
--- NOTE | 2023-08-26 06:49 | Hospitalist Progress Note ---
Date of Service August 26, 2023 Assessment & Plan (1) Hyponatremia: Plan: Pt is a 77 yo female with PMH of hyponatremia, "mini-stroke", COPD, and HTN presenting due to fatigue, malaise, and vomiting. Her Na was found to be 123. Hyponatremia secondary to SIADH -Na of 123 on admission improved slightly with normal saline before dropping to previous levels on repeat labs. -Urine study subsequently ordered: likely SIADH. -Per patient, hyponatremia known, had been investigated multiple times in outpatient setting. However, no explanation to date unsuccessful to date securing specialist referral to endocrine/nephrology ([facility] [place] [facility]). -S/p tolvaptan 15 mg given initially during this admission (Na improved briefly to 131). Current Na-129 (08/23). -Nephrology consulted: -Fluid restriction: 1.8 L -Trending sodium on Q3D BMP Abdominal Aortic Aneurysm -Incidentally noted on CT A/P: 6.1 cm AAA with nonspecific periaortic stranding without retroperitoneal hematoma. 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 -Will have vascular sx on 08/26. NPO at midnight, holding Lovenox. COPD -Current smoker (>44-[id number]-[id number] history). -Initial concern for small cell lung cancer, non-small cell lung cancer given smoking history, recurrent hyponatremia. However, no malignancy seen on CT chest or CT abdomen pelvis. -Patient admits to regular lung cancer screening with low-dose CT. -Continue daily home inhalers (or formulary equivalent) -As needed albuterol inhaler every 6 hours, benzonatate as needed up to 3 times daily for cough Hx of CVA -Continue home atorvastatin, aspirin HTN -Home clonidine held on admission. -Home lisinopril continued (decreased to 40 mg from 60 mg during this admission). Hypothyroidism -Continue home levothyroxine 75 mcg daily Code: DNR/DNI Dispo: Med-Surg telemetry FEN/GI: Regular DVT Prophylaxis: Lovenox 40 mg q24h hold on 08/25 before AAA repair PT/OT: No Consults: Vascular surgery, cardiology, nephrology, dietary Case Management: No (2) COPD (chronic obstructive pulmonary disease): (3) History of CVA (cerebrovascular accident): (4) Hypothyroidism: (5) AAA (abdominal aortic aneurysm): (6) SIADH (syndrome of inappropriate ADH production): Admission and Anticipated Discharge Date Admission Date: August 18, 2023 Results & Data Results & Data Vital Signs (Past 12 Hours) Vital Signs Temp Pulse Pulse Resp BP Pulse Ox O2 Del Method 08/26/23 01:21 Room Air 08/26/23 00:00 74 08/25/23 23:13 36.8 C 79 20 117/68 90 Room Air 08/25/23 20:25 36.8 C 74 18 93/50 L 92 Room Air
[2023-08-26 07:42] LABS: Basophils # (auto) 0.07 K/uL (0.00-0.20); Basophils % (auto) 0.8 %; Eosinophils # (auto) 0.52 K/uL (0.00-0.50); Eosinophils % (auto) 5.9 %; Hemoglobin 11.8 g/dl (12.0-16.0); Immature Granulocytes # (auto) 0.02 K/uL (0.01-0.20); Immature Granulocytes % (auto) 0.2 %; Lymphocytes # (auto) 2.46 K/uL (1.20-3.40); Lymphocytes % (auto) 27.8 %; Mean Corpuscular Hemoglobin 29.8 pg (25.0-34.0); Mean Corpuscular Hgb Conc 33.7 g/dL (32.0-36.0); Mean Corpuscular Volume 88.4 fL (80.0-100.0); Mean Platelet Volume 9.1 fL (9.4-12.4); Monocytes # (auto) 0.87 K/uL (0.11-0.59); Monocytes % (auto) 9.8 %; Neutrophils # (auto) 4.91 K/uL (1.40-6.50); Neutrophils % (auto) 55.5 %; Platelet Count 322 K/uL (130-400); RDW Standard Deviation 45.5 fL (36.4-46.3); Red Blood Count 3.96 M/uL (4.20-5.40); White Blood Count 8.85 K/ul (4.8-10.8)
[2023-08-26 07:51] LABS: Calcium 9.7 mg/dl (8.6-10.3); Potassium 4.3 mmol/L (3.5-5.1)
[2023-08-26 07:57] LABS: BUN Creatinine Ratio 20.2 (10-20); Creatinine Clr Calc Pharmacy 39.5 ml/min
[2023-08-26] MEDS: UMECLIDINIUM/VILANTEROL 62.5/25MCG 7 PUFFS/INHALER INH SCH (08:37)
[2023-08-26] MEDS: ESCITALOPRAM OXALATE 10 MG TAB PO SCH (08:39)
[2023-08-26] MEDS: amLODIPine BESYLATE 5 MG TAB PO SCH (08:39)
[2023-08-26] MEDS: lisinopril 40 MG TAB PO SCH (08:39)
[2023-08-26] MEDS: LORazepam 0.5 MG TAB PO PRN (08:39)
[2023-08-26] MEDS: FERROUS SULFATE 325 MG TAB PO SCH (11:28)
[2023-08-26] MEDS: ACETAMINOPHEN 325 MG TAB PO PRN (11:28)
--- NOTE | 2023-08-26 14:44 | Discharge Summary ---
Date of Service August 26, 2023 Admission HPI Per Admitting Provider Pt is a 77 yo female with PMH of hyponatremia, "mini-stroke", COPD, and HTN presenting due to fatigue, malaise, and vomiting. Pt explains that she has been struggling with her sodium levels for months since January. No inciting event. Since then, she has been hospitalized numerous times ([facility]) for this. She was also recently admitted for a "mini- stroke" and she was told her brain MRI showed a hx of prior stroke. Her PCP has been handling her sodium levels by supplementing her with 1000mg TID. When she originally started this, she became hypertensive. She has since required medications to control this but her BP are now under control. She reports she has seen a sales team recruiter once in the past for "fluid around my heart" and an enlarged aorta. She was told that both of these things were fine and she has not needed to f/u. She has also seen a pulmonology for her hx of COPD. She is a 55 pack year smoker. She uses inhalers at home for this. She began vomiting (x2) this morning with associated diarrhea (x2). She called her PCP who told her to come to the hospital because it could be due to her sodium levels. She denies hematochezia or hematemesis. In the ER, pt was hemodynamically stable. Her lab work was significant for WBC 11.09, Hgb 12.5, platelets 427, Na 123, and Cr 0.79. CXR showed findings consistent with possible pulmonary fibrosis. She was given 4mg zofran and 1L NS. Admission Exam Per Admitting Provider Constitutional: well appearing, no acute distress HEENT: normocephalic, no conjunctival injection CV: RRR, no murmur, no LE edema Respiratory: CTA bilaterally with diminished breath sounds throughout. No rhonchi, wheezes, or crackles. No increased work of breathing GI: soft, nondistended, nontender, + bowel sounds MSK: no gross deformities noted Skin: warm, dry, no rashes Neuro: alert, oriented, no FND noted Psych: mood and affect congruent Principal Diagnosis SIADH and AAA Discharge Exam Constitutional: well-appearing, no acute distress HEENT: NCAT, no conjunctival injection CV: regular rhythm, no murmur appreciated, extremities well-perfused, no LE edema Resp: CTABL, no wheezes/rales/rhonchi appreciated, no increased work of breathing GI: soft, nondistended, nontender, BS normoactive MSK: no gross deformities appreciated Skin: warm, dry, no rash appreciated Neuro: alert, oriented, no focal neurologic deficit appreciated Discharge Data Allergies Allergy/AdvReac Type Severity Reaction Status Date / Time No Known Allergies Allergy Unverified 08/18/23 20:28 Consultations 08/18/23 20:36 ED Decision to Admit Stat 08/18/23 21:44 Consult Nephrology Routine 08/19/23 07:17 Consult Health Information Management Routine 08/19/23 13:55 Consult Vascular Surgery Routine 08/19/23 14:29 Consult Vascular Surgery Routine 08/21/23 10:05 Consult Cardiology Routine Ordered Studies 08/19/23 11:39 CT Abd and Pelvis [CT abd pelvis wo con] Routine CT chest diagnostic wo con Routine 08/20/23 10:52 CTA abd pelvis wo/w con [CT angio abd pelvis wo/w con] Routine Chest X-Ray 08/18/23 17:47 XR chest 1V portable HISTORY: 77 years-old Female N/V/D acute chest pain with nausea, vomiting and diarrhea. COMPARISON: None TECHNIQUE: PA view of the chest FINDINGS: Cardiac silhouette is enlarged. Coarsened reticular diffuse interstitial densities with suggestive emphysema. No pneumothorax or large pleural effusion. Bones appear grossly intact. IMPRESSION: Coarse reticular interstitial opacities of the lungs are nonspecific without comparison available. The primary differential consideration would be pulmonary fibrosis. Pulmonary edema or an interstitial pneumonia considered less likely. ACT 112: Negative or not required by law. The above report was generated using voice recognition software. It may contain grammatical, syntax or spelling errors. Electronically signed by: Costa Gómez M.D. 08/18/2023 7:01 PM Abdomen/Pelvis CT 08/19/23 11:[address] WITHOUT CONTRAST CT DOSE: 751.38 mGy.cm HISTORY: Acute weight loss. weight loss, hyponatremia, smoking TECHNIQUE: Multiaxial CT images of the abdomen and pelvis were performed without contrast. A dose lowering technique was utilized adhering to the principles of ALARA. COMPARISON STUDY: Chest CT of same day. FINDINGS: Extensive coronary artery calcifications. Small pericardial effusion. Emphysema with subpleural reticulation and bibasilar subpleural consolidation with mucous plugging. No free air. The unenhanced spleen, pancreas and adrenal glands are unremarkable. Probable gallbladder sludge. Unremarkable liver. 3 mm calcification in the interpolar left kidney, likely vascular. 2.2 cm exophytic cyst of the interpolar right kidney. No renal or ureteral calculi or hydronephrosis. Unremarkable urinary bladder and uterus. Extensive atherosclerosis of the aorta. Fusiform dilation of the distal thoracic aorta just proximal to the diaphragmatic hiatus measures up to 3.3 cm. There is bilobed fusiform aneurysmal dilation of the abdominal aorta infrarenal segment. The more proximal portion of the aneurysm measures up to 6.1 x 5.7 cm and the more distal portion of the aneurysm just proximal to the iliac bifurcation measures up to 4.7 x 5.2 cm. There is an apparent thickened aortic wall with mild nonspecific periaortic stranding. No large retroperitoneal hematoma. Pelvic floor relaxation with rectocele. Nonspecific asymmetric soft tissue prominence within the region of the right vaginal introitus on image 329. Tiny hiatal hernia. Extensive colonic diverticulosis. No bowel obstruction or bowel wall thickening. Moderate colonic fecal retention. Normal appendix. No acute fracture. Degenerative changes of the spine, pelvis and hips. IMPRESSION: 1. Emphysema with bibasilar mucous plugging and bibasilar opacities, likely infectious or inflammatory. Please refer to the chest CT of same day for additional findings. 2. No bowel obstruction or bowel wall thickening. 3. Extensive atherosclerosis with bilobed fusiform infrarenal abdominal aortic aneurysm measuring up to 6.1 cm. There is nonspecific periaortic stranding without retroperitoneal hematoma identified. Follow-up with vascular surgery recommended. 4. Colonic diverticulosis. 5. Additional findings as above. ACT 112: Negative or not required by law. The above report was generated using voice recognition software. It may contain grammatical, syntax or spelling errors. Dictated: 08/19/2023 12:12 PM Transcribed: 08/19/2023 12:29 PM Mireya [id number] EDISON_Stephane [id number] Electronically signed by: Costa Gómez M.D. 08/19/2023 1:[address] 08/19/23 11:39 CT SCAN OF THE CHEST WITHOUT IV CONTRAST CLINICAL HISTORY: Hyponatremia. Weight loss. Smoking history. Abnormal chest x- ray. COMPARISON STUDY: Chest x-ray dated 08/18/2023. TECHNIQUE: CT scan of the thorax was performed from the thoracic inlet to the upper abdomen. Images are reviewed in the axial, sagittal, and coronal planes. IV contrast was not administered for this examination as per the referring clinician. A dose lowering technique was utilized adhering to the principles of ALARA. FINDINGS: Thyroid: Mildly atrophic and heterogeneous. Thoracic aorta: There is advanced atherosclerotic calcification of the thoracic aorta, which is normal in caliber and demonstrates standard 3-vessel arch anatomy. Heart: The heart is normal in size noting a small pericardial effusion. The coronary arteries are densely calcified. Lungs and pleural spaces: There is advanced and some of this change. The trachea and central airways are clear. Fluid/debris versus mucous plugging is noted in the lower lobe airways. There are trace pleural effusions with mild dependent consolidation. Scar like opacities are seen throughout both lungs. The largest is in the left upper lobe on image #77 and measures 1.8 cm in length. Mediastinum: There are mildly enlarged mediastinal lymph nodes. A subcarinal node measures 14 mm short axis. A precarinal node measures 10 mm in short axis. Carolyn: Not well assessed without IV contrast. Axillae: There is no axillary lymphadenopathy. Upper abdomen: There is a small hiatal hernia. Upper pole renal cysts measure up to 2.4 cm. An abdominal aortic aneurysm is partially visualized. This measures at least 4.4 cm in diameter. Skeletal structures: The skeletal structures are osteopenic. Degenerative change is noted in the shoulders and spine. No lytic or blastic bony lesions are seen. IMPRESSION: 1. Advanced emphysema. 2. There are trace pleural effusions with dependent consolidation. Correlate clinically for evidence of pneumonia/aspiration pneumonitis. Fluid/debris versus mucous plugging is noted in the lower lobe airways. Radiographic follow-up to resolution is recommended. 3. There are scarlike opacities seen throughout both lungs which measure up to 1.8 cm in length. A precautionary six-month follow-up chest CT is recommended for reassessment. 4. Mildly enlarged mediastinal lymph nodes are nonspecific and likely related to chronic lung disease. These can also be assessed at follow-up. 5. A 4.4 cm infrarenal abdominal aortic aneurysm is partially visualized. Follow with vascular surgery is recommend for further workup. 6. Additional findings as above. ACT 112: Positive. There are findings on this exam that require communication between the performing entity and the patient following Patient Test Result Information Act ([place] Act 112) guidelines. Electronically signed by: Sukh Lowery M.D. 08/19/2023 12:52 PM Abdomen/Pelvis CTA 08/20/23 10:52 CT ANGIOGRAM OF THE ABDOMEN AND PELVIS COMBO CLINICAL HISTORY: Abdominal aortic aneurysm. COMPARISON STUDY: Abdominal CT dated 08/19/2023. TECHNIQUE: Before and following the IV administration of 120 cc of Optiray 320, CT angiogram of the abdomen and pelvis was performed from the lung bases the proximal femora. Images are reviewed in the axial, sagittal, and coronal planes. 3-D MIPS images are created and assessed. IV contrast was administered without complication. A dose lowering technique was utilized adhering to the principles of ALARA. CT DOSE: 609.32 mGy.cm FINDINGS: Lower chest: The heart is top normal in size noting trace pericardial effusion. The coronary arteries are densely calcified. There is a small hiatal hernia. Advanced emphysematous change is noted. The lung bases. There are trace pleural effusions with dependent airspace opacities. Intraluminal debris/mucus plugging is seen in the lower lobe airways. Liver: The contrast-enhanced liver is normal in size and contour. Attenuation is heterogeneous. There is no intrahepatic biliary ductal dilatation. Foci of subcapsular arterial enhancement in the hepatic dome likely represents shunt vascularity. Gallbladder: Unremarkable. Spleen: Normal in size and attenuation noting heterogeneous arterial phase enhancement. Pancreas: Unremarkable. Adrenal glands: Unremarkable. Kidneys: The contrast enhanced kidneys are normal in size and without hydronephrosis. No renal calculi are identified on the unenhanced series. The kidneys enhance symmetrically. Bilateral renal cysts measure up to 2.6 cm. Additional subcentimeter cortical hypodensities also likely represent cysts but are too small for definitive characterization. Abdominal aorta and iliac arteries: There is advanced atherosclerotic calcification of the abdominal aorta. There is a large bilobed infrarenal abdominal aortic aneurysm. The more superior lobulation measures 5.3 x 5.6 cm (AP x transverse) and the more inferior lobulation measures 5.1 x 6.0 cm. The aneurysm sac measures 12.6 cm in craniocaudal length. This originates less than 1 cm below the takeoff of the renal arteries, and terminates at the bifurcation. The iliac arteries are diminutive. There is high-grade stenosis at the origin of the right common iliac artery seen on image #257. 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 Reconstitution of flow is seen just above the iliac bifurcation. The left internal and external iliac arteries are patent. Major branches of the abdominal aorta: The celiac trunk and superior mesenteric arteries are patent. There is thrombosis of the origin of the inferior mesenteric artery which arises from the aneurysm sac. This is reconstituted via retrograde flow. There is a large accessory right lobe hepatic artery which arises from the superior mesenteric artery. The splenic artery is patent. There is at least moderate stenosis of the origin of the right renal artery. No renal artery stenosis is seen on the left. There is a tiny accessory left upper pole renal artery seen on image #49. Bowel: There is advanced colonic diverticulosis without CT evidence of acute diverticulitis. No bowel obstruction is seen. Moderate fecal retention is noted throughout the colon. The appendix is well-visualized and normal. Peritoneum: There is no intraperitoneal free air or abdominal ascites. Lymphadenopathy: None. Pelvic viscera: The bladder, uterus, and adnexa are normal as visualized. Skeletal structures: The skeletal structures are osteopenic. Mild lumbosacral spondylosis is observed. No destructive bony lesions are seen. IMPRESSION: 1. There is a large bilobed infrarenal abdominal aortic aneurysm as detailed above. The larger lobulation measures up to 6 cm. 2. 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 3. There is high-grade focal stenosis at the origin of the right common iliac artery. 4. There is occlusion at the origin of the inferior mesenteric artery. The vessel is reconstituted via retrograde flow. 5. There is at least moderate stenosis at the origin of the right renal artery. 6. Emphysema. 7. There are trace pleural effusions with bibasilar airspace opacities. Correlate clinical data for evidence of an infectious/inflammatory pneumonitis. 8. Advanced colonic diverticulosis without CT evidence of acute diverticulitis. 9. Additional findings as above. ACT 112: Negative or not required by law. Electronically signed by: Sukh Lowery M.D. 08/20/2023 1:18 PM Hospital Course (1) Hyponatremia: (2) COPD (chronic obstructive pulmonary disease): (3) History of CVA (cerebrovascular accident): (4) Hypothyroidism: (5) AAA (abdominal aortic aneurysm): (6) SIADH (syndrome of inappropriate ADH production): Plan Pt is a 77 yo female with PMH of hyponatremia, "mini-stroke", COPD, and HTN presenting due to fatigue, malaise, and vomiting. Her Na was found to be 123. Hyponatremia secondary to SIADH -Na of 123 on admission improved slightly with normal saline before dropping to previous levels on repeat labs. -Urine study subsequently ordered: likely SIADH. -Per patient, hyponatremia known, had been investigated multiple times in outpatient setting. However, no explanation to date unsuccessful to date securing specialist referral to endocrine/nephrology (PCP-Martin Johnson). -S/p tolvaptan 15 mg given initially during this admission (Na improved briefly to 131). Current Na-127 (08/26). -Nephrology consulted: -Fluid restriction: 1.8 L -Should have follow-up with PCP within 1 week of discharge and had a BMP done to check sodium levels. May require more doses of tolvaptan. Should follow-up with PCP about recommendations. Should continue with fluid restriction of 1.8 L. Abdominal Aortic Aneurysm -Incidentally noted on CT A/P: 6.1 cm AAA with nonspecific periaortic stranding without retroperitoneal hematoma. -Per pt, AAA previously known to her sales team recruiter: no interventions attempted -Vascular surgery consulted: -Ordered CTA A/P: "Large bilobed infrarenal abdominal aortic aneurysmmeasures up to 6 cm." -Tentatively scheduled for endovascular AAA repair with possible R to L femoral bypass on 08/26/2023 -Cardiology consulted for preoperative evaluation: Patient classified as high risk from cardiovascular perspective, recommended deferring noninvasive ischemic evaluation for presumed CAD given urgency of AAA repair. -Was initially supposed to have vascular surgery on 08/26. However due to sched uling conflicts was not able to have the surgery. Will be deferred to next week. -Vascular surgery states that the patient requires a myocardial perfusion study prior to her procedure and to have the surgery done next Thursday. She is okay to DC from a vascular standpoint. Vascular will help set up these procedures. COPD -Current smoker (>59-ioig-dekb history). -Initial concern for small cell lung cancer, non-small cell lung cancer given smoking history, recurrent hyponatremia. However, no malignancy seen on CT chest or CT abdomen pelvis. -Patient admits to regular lung cancer screening with low-dose CT. -Continue daily home inhalers (or formulary equivalent) -As needed albuterol inhaler every 6 hours Hx of CVA -Continue home atorvastatin, aspirin HTN -Home clonidine held on admission. -Home lisinopril continued (decreased to 40 mg from 60 mg during this admission). Hypothyroidism -Continue home levothyroxine 75 mcg daily Total Time Total Time Spent Total Time Spent (In Minutes): Please refer to attendings attestation Discharge Plan Discharge Items Patient Disposition: Home - Self-Care Reason For Visit: HYPONATREMIA Discharge Diagnosis: SIADH and abdominal aortic aneurysm Activity: Resume your previous activity Non-emergency contact: Primary Care Provider Call non-emergency contact if: you have any medication questions, your pain is unusual for you and your temperature is above 101.5 Follow-up/Referrals: Ba Wilson MD [Physician] - (AAA repair) Lissette Dailey D.O. [Primary Care Provider] - Diet: Heart Healthy Fluids: 1800ml (7 cups) Addtl Attending Provider Instructions: You were admitted to the hospital for hyponatremia secondary to SIADH. You were treated with a medication called tolvaptan. You should continue to follow-up with your PCP regarding treatment for your hyponatremia and you may need further doses of tolvaptan in the future. You were also noted to have a 6.1 cm abdominal aortic aneurysm that will require vascular intervention. You will need to follow-up with vascular surgery as soon as possible to have surgery next week. You will need to have a myocardial perfusion study prior to this procedure. Vascular surgery should reach out to you regarding these two procedures. If you do not hear from them please immediately call their office at . You can also call the hospital and ask for Dr. Munoz at [phone]. A discharge summary will be sent to your primary care physician to ensure continuity of care. Please bring this discharge summary with you to your next office appointment so that your provider can review it at that time. Follow-up appointments: * Vascular surgery will reach out to you regarding your abdominal aortic aneurysm surgery and your myocardial perfusion study. * Please make a appointment with your primary care physician within 1-2 week of being discharged from the hospital. * Keep all your follow-up appointments as already scheduled. If you cannot make an appointment, notify your provider. Medications: Your medication list has been reviewed and reconciled upon discharge to ensure accuracy and continuity of care. An updated list of all your medications is included with your hospital discharge paperwork. Please review this list closely, and make note of any changes. * No new medication was added during her visit. * If you have any issues filling these prescriptions, please call [phone] and ask to leave a message for Dr. Munoz. * Take your medications as instructed; do not skip a dose of your medicines. Make sure all of your doctors know every medicine you are taking (including govr-uko-ipaevch medicines, vitamins, and supplements). Call your primary care provider before taking any new medicines (including over- the-counter medicines, vitamins, and supplements), because some of these may interact with your current medications, or may make your symptoms worse. Tell your primary care provider if you cannot afford your medications. CONTACT YOUR PRIMARY CARE PROVIDER if you experience any of the following: * Worsening of symptoms * Fever, chills, or fatigue * Difficulty following your treatment plan, or difficulty taking medications CALL 911 OR GO TO THE EMERGENCY DEPARTMENT if you experience any of the following: * Sudden, severe abdominal pain or nausea/vomiting * Severe chest pain, or chest pain that radiates (moves) to your jaw or arm * Sudden, severe shortness of breath or difficulty breathing Thank you for allowing us to participate in your care. Pending Studies at Discharge: No Stand-Alone Forms: My [facility], Smoking Cessation Medications and DC Order Prescriptions: Continued atorvastatin 40 mg tablet 40 mg PO HS clonidine HCl 0.1 mg tablet 0.1 mg PO DAILY PRN (Reason: BP greater than 170/100) lisinopril 20 mg tablet See Rx Instructions .ROUTE .COMPLEX Rx Instructions: Take 20mg with 40mg tablet to equal 60mg by mouth every morning aspirin 81 mg tablet,delayed release (DR/EC) 81 mg PO QAM levothyroxine 75 mcg tablet 75 mcg PO QAM lorazepam 0.5 mg tablet 0.5 mg PO Q6H PRN (Reason: Anxiety) amlodipine 10 mg tablet 10 mg PO QAM ferrous sulfate 325 mg (65 mg iron) tablet 325 mg PO .LUNCH albuterol sulfate 90 mcg/actuation HFA aerosol inhaler 2 puff INHALATION Q6H PRN (Reason: SOB or wheezing) lisinopril 40 mg tablet See Rx Instructions .ROUTE .COMPLEX Rx Instructions: Take 40mg with 20mg tablet to equal 60mg by mouth every morning escitalopram oxalate 10 mg tablet 10 mg PO QAM sodium chloride 1,000 mg tablet,soluble 1,000 mg PO TID Stiolto Respimat 2.5-2.5 mcg/actuation mist 2 puff INHALATION QAM Discharge Orders: Discharge Order (Routine); Ordered 08/26/23 Ordered By: Sukh Downs/Other Patient Handouts: Sodium (Blood), AAA, AAA Surg, AAA Surg Post Op, Hyponatremia Dc, Endovascular Repair of AAA Admission Data Admit Date/Time: 08/18/23 21:39 Attending Provider: Mani Reddy Admit Provider: Ann Yin Primary Care Provider: Lissette Dailey Other Providers: Pattie Almanzar; Radha Bullard; Ba Wilson Kip M.; Blayne Soliz; Torrey Marcus; Kenny Vallecillo; Fabiano Castle; Juwan Zabala Jr; eS Squires; Marisol Bey; Kateryna Roche; Mani Bueno; Mani Brito; Eugene Veliz; Hermila Ludwig; Lela Harvey; Yohan Morocho Henry C.; Sharan Burnett Other Interventions: Discharge Summary Assessment (RN) Last Done: 08/26/23 15:14 Supervising Physician Co-Signing Physician Notes Attending attestation Pt seen and examined in concert with Dr. Munoz. In agreement with the documented findings as noted in the resident documentation with any exceptions or additions as noted here. Resting comfortably in bed. On examination, S1/S2 nl RRR no MCG. CTAB. Abd NT/ND BS+ve. audible AA bruit Hyponatremia - ongoing improvement with fluid restriction s/p tolvaptan - resume daily salt tabs 1 TID on discharge and encourage repeat labs at outpatient f/u HTN in the setting of AAA - pending repair by vascular surgery as outpatient. Continue amlodipine, lisinopril. COPD - ongoing cough well controlled with benzonatate and albuterol. Else see resident documentation as noted. Total attending physician time spent with this patient's care on the day of discharge: 35 minutes. Resident Activity Tracking Resident Involvement: Resident Care Provided Care Provided: Adult [facility] Medicine
--- NOTE | 2023-08-26 14:45 | Communication Note ---
Date of Service: August 26, 2023 Dr Wilson spoke with pt and family, advised she will require a myocardial perfusion study prior to her procedure. This test is currently unavailable at this institution d/t construction. Will schedule this at another facility as outpt and plan on [facility] next week pending perfusion test results. Office will call pt to arrange. OK for d/c from vascular standpoint.
== END 2023-08-26 15:40 | disposition home or self-care (01) | DRG 644 ==
LOC: ED 17:38 → EDINP 21:39 → SUATTDRO 21:39 → 2N 23:23

== ENCOUNTER 2023-09-21 06:21 | Inpatient (IN) ==
--- NOTE | 2023-09-16 09:47 | Anesthesiology Consultation ---
Date of Service September 16, 2023 Assessment & Plan Chart Review Chart Review: Acceptable Risk for Surgery and Patient NOT seen in Pre Admission Testing Consults Requested none History Surgery Operation Date: 09/21/23 08:00 Proposed Procedures p Percutaneous Endovascular Repair - Ba Wilson MD s Possible Femoral to Femoral Bypass - Ba Wilson MD Height/Weight Height: 5 ft 2.5 in Weight: 46.266 kg Allergies Allergy/AdvReac Type Severity Reaction Status Date / Time No Known Allergies Allergy Verified 09/15/23 11:45 Medications Home Medications Medication Instructions Recorded Confirmed Last Taken albuterol sulfate 90 mcg/actuation 2 puff inhalation Q6H PRN SOB or 08/18/23 09/15/23 Unknown aerosol inhaler wheezing amlodipine 10 mg tablet 10 mg PO QPM 08/18/23 09/15/23 08/18/23 aspirin 81 mg tablet,delayed 81 mg PO QPM 08/18/23 09/15/23 08/18/23 release atorvastatin 40 mg tablet 40 mg PO HS 08/18/23 09/15/23 08/17/23 clonidine HCl 0.1 mg tablet 0.1 mg PO DAILY PRN BP greater 08/18/23 09/15/23 Unknown than 170/100 escitalopram oxalate 10 mg tablet 10 mg PO QPM 08/18/23 09/15/23 08/18/23 ferrous sulfate 325 mg (65 mg 325 mg PO .LUNCH 08/18/23 09/15/23 08/18/23 iron) tablet levothyroxine 75 mcg tablet 75 mcg PO QAM 08/18/23 09/15/23 08/18/23 lisinopril 20 mg tablet See Rx Instructions .Route .COMPLEX 08/18/23 09/15/23 08/18/23 lisinopril 40 mg tablet See Rx Instructions .Route .COMPLEX 08/18/23 09/15/23 08/18/23 lorazepam 0.5 mg tablet 0.5 mg PO Q6H PRN Anxiety 08/18/23 09/15/23 Unknown sodium chloride 1,000 mg soluble 2,000 mg PO TID 08/18/23 09/15/23 08/18/23 tablet tiotropium 2.5 mcg-olodaterol 2.5 2 puff inhalation QAM 08/18/23 09/15/23 08/18/23 mcg/actuation mist for inhalation (Stiolto Respimat) Past Medical History Medical History CAD (coronary artery disease) Fatigue Hypothyroidism Low sodium levels Anxiety and depression Transient ischemic attack (TIA) 08/2023 treated at [facility] (no deficits from event) Hyperlipidemia Sleep apnea no device AAA (abdominal aortic aneurysm) HTN (hypertension) COPD (chronic obstructive pulmonary disease) Past Family History Family History Other No family history of adverse response to anesthesia Past Surgical History Surgical History History of tooth extraction History of tonsillectomy and adenoidectomy History of cataract surgery rt/left Social History Smoking Status: Current every day smoker Smoking cigarettes per day: 20 cig daily>advised NPO Do You Dip or Chew Tobacco: No Hx Alcohol Use: No Hx Substance Use: No substance use type: does not use Lab Results Anesthesia Preop Results Results Anesthesia Widget: WBC 12.32 K/ul (4.8-10.8) H 09/08/23 Hgb 12.0 g/dl (12.0-16.0) 09/08/23 Hct 36.7 % (37.0-47.0) L 09/08/23 Plt 352 K/uL (130-400) 09/08/23 Na 137 mmol/L (136-145) 09/08/23 K 3.5 mmol/L (3.5-5.1) 09/08/23 Cl 102 mmol/L (98-107) 09/08/23 CO2 25 mmol/L (21-32) 09/08/23 BUN 23 mg/dl (6-23) 09/08/23 Creat 0.67 mg/dl (0.6-1.2) 09/08/23 Glucose Level 79 mg/dl (70-99(Fasting)) 09/08/23 PT 11.3 Seconds (9.0-12.0) 09/08/23 PTT 30 Seconds (21-31) 09/08/23 INR 1.0 (0.9-1.1) 09/08/23 TSH 1.342 uIu/ml (0.300-4.500) 08/19/23 Testing Electrocardiogram Date: 08/18/23 Normal sinus rhythm, rate 78 bpm Cannot rule out Anterior infarct , age undetermined Abnormal ECG No previous ECGs available Confirmed by Se Squires ([id number]) on 08/21/2023 9:27:04 PM Chest X-Ray Date: 08/18/23 FINDINGS: Cardiac silhouette is enlarged. Coarsened reticular diffuse interstitial densities with suggestive emphysema. No pneumothorax or large pleural effusion. Bones appear grossly intact. IMPRESSION: Coarse reticular interstitial opacities of the lungs are nonspecific without comparison available. The primary differential consideration would be pulmonary fibrosis. Pulmonary edema or an interstitial pneumonia considered less likely. Echocardiogram Date: 08/21/23 Normal LV size and systolic function. EF 65-70%. No regional wall motion abnormalities. Mild concentric LVH. Sclerotic AV without significant stenosis. Small pericardial effusion without echo evidence of tamponade physiology. Normal estimated RVSP. Estimated RVSP 27 mmHg. No prior study available for comparison. Other Testing CTA abd/pelv 08/20/23 IMPRESSION: 1. There is a large bilobed infrarenal abdominal aortic aneurysm as detailed above. The larger lobulation measures up to 6 cm. 2. 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 3. There is high-grade focal stenosis at the origin of the right common iliac artery. 4. There is occlusion at the origin of the inferior mesenteric artery. The vessel is reconstituted via retrograde flow. 5. There is at least moderate stenosis at the origin of the right renal artery. 6. Emphysema. 7. There are trace pleural effusions with bibasilar airspace opacities. Correlate clinical data for evidence of an infectious/inflammatory pneumonitis. 8. Advanced colonic diverticulosis without CT evidence of acute diverticulitis. 9. Additional findings as above.
--- OUTSIDE RECORDS SUMMARY | 2023-09-21 06:23 | External Medical Summary | Continuity of Care Document ---
Author Name Unknown Organization [facility] [address] [facility] Address [address], [place] [id number] Care Team Providers [employer] Name Role Phone MaryLissette miles Primary Care Physician [phone] Encounter [facility] [id number] Date(s): 09/07/23 - 09/07/23 [facility] [address], [address] [place] [address] [phone] Encounter Diagnosis AAA (abdominal aortic aneurysm)(Discharge Diagnosis) - 09/07/23 Discharge Disposition: Home or Self Care Attending Physician: MD Wilson Eugene J Allergies, Adverse Reactions, Alerts No Known Allergies Assessment and Plan Extracted from: Title:Clinical Document Author:ADAL Baeza Lynn Date:09/07/23 [facility] OUTPATIENT NOTE Name: CASTRO ARELLANO Patient Number: [id number] : 1945 Date of Service: 09/07/2023 Chief Complaint: _Follow-up after NM myocardial perfusion scan HPI: _Ms. Arellano is an elderly female who presents to Dr. Wilson vascular surgery clinic today for a follow-up appointment to discuss repair of her abdominal arctic aneurysm, after undergoing a myocardial perfusion scan last week. Patient was initially seen by Dr. Wilson and myself while inpatient at [facility], after the hospitalist team had noted 6.3 cm infrarenal abdominal aortic aneurysm on imaging. Patient was initially scheduled to undergo repair while she was inpatient, however, a cardiac evaluation was requested during which a myocardial perfusion scan was recommended due to symptoms of CARSON and lack of regular cardiac care. Patient states overall she is feeling well since being at home. She states she has been taking it easy and not doing much more than what she has to each day. Her 3 children check on her regularly, and 1 even accompanied her to the appointment today. She denies any concerns of shortness of breath, chest pain, abdominal pain, nausea, vomiting, lower extremity claudication, rest pain, nonhealing wounds or ulcers, other complaints. Current Home Meds: (Last Updated 09/07 15:12) LORazepam (LORazepam 0.5 mg oral tablet) TAKE 1/2 (ONE-HALF) TABLET BY MOUTH EVERY 6 HOURS NEEDED FOR ANXIETY albuterol (Albuterol (Eqv-ProAir HFA) 90 mcg/inh inhalation aerosol) INHALE 2 PUFFS BY MOUTH EVERY 6 HOURS NEEDED amLODIPine (amLODIPine 10 mg oral tablet) TAKE 1 TABLET BY MOUTH ONCE DAILY atorvastatin (atorvastatin 40 mg oral tablet) 40 mg PO Daily cloNIDine (cloNIDine 0.1 mg oral tablet) TAKE 1 TABLET BY MOUTH ONCE DAILY NEEDED BP>170/100 escitalopram (escitalopram 5 mg oral tablet) TAKE 1 TABLET BY MOUTH ONCE DAILY ferrous sulfate (ferrous sulfate 325 mg (65 mg elemental iron) oral delayed release tablet) 325 mg PO Daily levothyroxine (levothyroxine 75 mcg (0.075 mg) oral tablet) TAKE 1 TABLET BY MOUTH ONCE DAILY lisinopril (lisinopril 40 mg oral tablet) TAKE 1 TABLET BY MOUTH ONCE DAILY lisinopril (lisinopril 20 mg oral tablet) TAKE 1 TABLET BY MOUTH ONCE DAILY olodaterol-tiotropium (Stiolto Respimat 60 ACT 2.5 mcg-2.5 mcg/inh inhalation aerosol) INHALE 2 PUFFS BY MOUTH ONCE DAILY DIRECTED sodium chloride (Sodium Chloride 1 g oral tablet) 2 tab po tid unlisted medication (ASPIRIN LOW EC 81MG TAB) TAKE 1 TABLET BY MOUTH ONCE DAILY Allergies and Sensitivities: NKA Past Medical History: Problems: AAA (abdominal aortic aneurysm) OBJECTIVE Vitals: Last Updated 09/07/23 15:16 Date Temp BP Location Pulse RR SpO2 Pain 09/07/23 150/62 Left Arm 83 93 Vital Signs are the last 3 documented. No Orthostatic Data Available No Height/Weight Data Available Physical Exam Constitutional: In general patient is a healthy-appearing well-nourished well-developed elderly female in no distress. She is alert and oriented with any focal deficits. She ambulates without assistance. Her heart is regular, her lungs are decreased throughout but clear. Her abdomen is soft nontender with no active bowel sounds, and her 6 cm aneurysm is palpable. Her right femoral pulse is nonpalpable, her left femoral pulse is +3. Her right lower extremity distal pulses are nonpalpable, her left lower extremity distal pulses are +1. ASSESSMENT: _ PLAN: _ 1 ) _abdominal aortic aneurysm, 6 cm Patient does have a large abdominal aortic aneurysm, as well as a known right common iliac artery occlusion. Dr. Wilson had previously recommended that patient undergo a percutaneous abdominal aortic aneurysm repair, however, due to her right common iliac artery occlusion, she may require a Uni limb with left to right femorofemoral bypass if the right iliac occlusion is unable to be traversed with a wire. The procedure, risks, benefits, and alternatives were discussed with the patient by myself at Dr. Wilson's request. Patient expressed understanding and agreement to proceed. We will tentatively schedule this for 1 to 2 weeks from now. Her myocardial perfusion scan showed abnormal results, and we recommended that she undergo a formal cardiac clearance to evaluate her cardiac risk prior to her procedure. Patient and her daughter were advised to call with any other questions or concerns. They are agreeable to this plan. Thank you for letting us participate in the care of this patient. I have personally spent_29__ minutes performing [id number] and [id number]-[id number]-face activities on this date of service.Time does not include separately reported services. Activities Include: _x_ review of the medical record _x_ obtaining a history _x_ physical exam/evaluation __ review labs _x_ review radiology reports _x_ counseling/educating patient/family/caregiver _x_ discussion/referral to other healthcare professional _x_ documenting care in the medical record __ independent interpretation of results _x_ communication of results to patient/family/caregiver _x_ coordination of care Medications Albuterol (Eqv-ProAir HFA) 90 mcg/inh inhalation aerosol INHALE 2 PUFFS BY MOUTH EVERY 6 HOURS NEEDED Start Date: 08/27/23 Status: Ordered ASPIRIN LOW EC 81MG TAB ASPIRIN LOW EC 81MG TAB, TAKE 1 TABLET BY MOUTH ONCE DAILY Start Date: 08/27/23 Status: Ordered atorvastatin 40 mg oral tablet Start: 08/27/23 10:39:00 EST, 1 tab, PO, Daily Start Date: 08/27/23 Status: Ordered cloNIDine 0.1 mg oral tablet TAKE 1 TABLET BY MOUTH ONCE DAILY NEEDED BP>170/100 Start Date: 08/27/23 Status: Ordered escitalopram 5 mg oral tablet TAKE 1 TABLET BY MOUTH ONCE DAILY Start Date: 08/27/23 Status: Ordered ferrous sulfate 325 mg (65 mg elemental iron) oral delayed release tablet Start: 08/27/23 10:38:00 EST, 1 tab, PO, Daily Start Date: 08/27/23 Status: Ordered levothyroxine 75 mcg (0.075 mg) oral tablet TAKE 1 TABLET BY MOUTH ONCE DAILY Start Date: 08/27/23 Status: Ordered lisinopril 40 mg oral tablet TAKE 1 TABLET BY MOUTH ONCE DAILY Start Date: 08/27/23 Status: Ordered LORazepam 0.5 mg oral tablet TAKE 1/2 (ONE-HALF) TABLET BY MOUTH EVERY 6 HOURS NEEDED FOR ANXIETY Start Date: 08/27/23 Status: Ordered NIFEdipine (Eqv-Adalat CC) 90 mg oral tablet, extended release Start: 09/08/23 14:20:00 EST, 1 tab, PO, Daily, Disp# 90 tab, Refills: 3, Pharmacy: [id number] Start Date: 09/08/23 Status: Ordered Sodium Chloride 1 g oral tablet Start: 08/27/23 10:38:00 EST, See Instructions, 2 tab po tid Start Date: 08/27/23 Status: Ordered Stiolto Respimat 60 ACT 2.5 mcg-2.5 mcg/inh inhalation aerosol INHALE 2 PUFFS BY MOUTH ONCE DAILY DIRECTED Start Date: 08/27/23 Status: Ordered Problem List Condition Confirmation Course Effective Dates Status Health St atus Informant AAA (abdominal aortic aneurysm) Confirmed Active Tobacco user Confirmed Active Diagnosis Diagnosis Type Effective Dates Health Status inical Service Informant AAA (abdominal aortic aneurysm) Discharge Diagnosis 09/07/23 Vital Signs Most recent to oldest [Reference Range]: 1 Heart Rate 83 bpm (09/07/23 3:16 PM) Blood Pressure 150/42mmHg (09/07/23 3:16 PM) Cuff Pulse Pressure 108 mmHg (09/07/23 3:16 PM) BP Location # 1 Left Arm (09/07/23 3:16 PM) Social History Social History Type Response Smoking Status Current every day he edmundo smoker Sex Female [facility] Outpt Note * ADAL Baeza Lynn: PERFORM Event Display: [facility] Outpt Note Authored Date: [id number] [facility] OUTPATIENT NOTE Name: CASTRO ARELLANO Patient Number: [id number] : 1945 Date of Service: 09/07/2023 Chief Complaint: _Follow-up after NM myocardial perfusion scan HPI: _Ms. Arellano is an elderly female who presents to Dr. Wilson vascular surgery clinic today for a follow-up appointment to discuss repair of her abdominal arctic aneurysm, after undergoing a myocardial perfusion scan last week. Patient was initially seen by Dr. Wilson and myself while inpatient at [facility], after the hospitalist team had noted 6.3 cm infrarenal abdominal aortic aneurysm on imaging. Patient was initially scheduled to undergo repair while she was inpatient,however, a cardiac evaluation was requested during which a myocardial perfusion scan was recommended due to symptoms of CARSON and lack of regular cardiac care. Patient states overall she is feeling well since being at home. She states she has been taking it easy and not doing much more than what she has to each day. Her 3 children check on her regularly, and 1 even accompanied her to the appointment today. She denies any concerns of shortness of breath, chest pain, abdominal pain, nausea, vomiting, lower extremity claudication, rest pain, nonhealing wounds or ulcers, other complaints. Current Home Meds: (Last Updated 09/07 15:12) LORazepam (LORazepam 0.5 mg oral tablet) TAKE 1/2 (ONE-HALF) TABLET BY MOUTH EVERY 6 HOURS NEEDED FOR ANXIETY albuterol (Albuterol (Eqv-ProAir HFA) 90 mcg/inh inhalation aerosol) INHALE 2 PUFFS BY MOUTH EVERY 6 HOURS NEEDED amLODIPine (amLODIPine 10 mg oral tablet) TAKE 1 TABLET BY MOUTH ONCE DAILY atorvastatin (atorvastatin 40 mg oral tablet) 40 mg PO Daily cloNIDine (cloNIDine 0.1 mg oral tablet) TAKE 1 TABLET BY MOUTH ONCE DAILY NEEDED BP>170/100 escitalopram (escitalopram 5 mg oral tablet) TAKE 1 TABLET BY MOUTH ONCE DAILY ferrous sulfate (ferrous sulfate 325 mg (65 mg elemental iron) oral delayed release tablet) 325 mg PO Daily levothyroxine (levothyroxine 75 mcg (0.075 mg) oral tablet) TAKE 1 TABLET BY MOUTH ONCE DAILY lisinopril (lisinopril 40 mg oral tablet) TAKE 1 TABLET BY MOUTH ONCE DAILY lisinopril (lisinopril 20 mg oral tablet) TAKE 1 TABLET BY MOUTH ONCE DAILY olodaterol-tiotropium (Stiolto Respimat 60 ACT 2.5 mcg-2.5 mcg/inh inhalation aerosol) INHALE 2 PUFFS BY MOUTH ONCE DAILY DIRECTED sodium chloride (Sodium Chloride 1 g oral tablet) 2 tab po tid unlisted medication (ASPIRIN LOW EC 81MG TAB) TAKE 1 TABLET BY MOUTH ONCE DAILY Allergies and Sensitivities: NKA Past Medical History: Problems: AAA (abdominal aortic aneurysm) OBJECTIVE Vitals: Last Updated 09/07/23 15:16 Date Temp BP Location Pulse RR SpO2 Pain 09/07/23 150/62 Left Arm 83 93 Vital Signs are the last 3 documented. No Orthostatic Data Available No Height/Weight Data Available Physical Exam Constitutional: In general patient is a healthy-appearing well-nourished well- developed elderly female in no distress. She is alert and oriented with any focal deficits. She ambulates without assistance. Her heart is regular, her lungs are decreased throughout but clear. Her abdomen is soft nontender with no active bowel sounds, and her 6 cm aneurysm is palpable. Her right femoral pulse is nonpalpable, her left femoral pulse is +3. Her right lower extremity distal pulses are nonpalpable, her left lower extremity distal pulses are +1. ASSESSMENT: _ PLAN: _ 1 ) _abdominal aortic aneurysm, 6 cm Patient does have a large abdominal aortic aneurysm, as well as a known right common iliac artery occlusion. Dr. Wilson had previously recommended that patient undergo a percutaneous abdominal aorticaneurysm repair, however, due to her right common iliac artery occlusion, she may require a Uni limb with left to right femorofemoral bypass if the right iliac occlusion is unable to be traversed with a wire. The procedure, risks, benefits, and alternatives were discussed with the patient by myselfat Dr. Wilson's request. Patient expressed understanding and agreement to proceed. We will tentatively schedule this for 1 to 2 weeks from now. Her myocardial perfusion scan showed abnormal results, and we recommended that she undergo a formal cardiac clearance to evaluate her cardiac risk prior toher procedure. Patient and her daughter were advised to call with any other questions or concerns. They are agreeable to this plan. Thank you for letting us participate in the care of this patient. I have personally spent_29__ minutes performing [id number]-[id number] and ssj-vhid-qx-face activities on this date of service.Time does not include separately reported services. Activities Include: _x_ review of the medical record _x_ obtaining a history _x_ physical exam/evaluation __ review labs _x_ review radiology reports _x_ counseling/educating patient/family/caregiver _x_ discussion/referral to other healthcare professional _x_ documenting care in the medical record __ independent interpretation of results _x_ communication of results to patient/family/caregiver _x_ coordination of care Electronic Signature on File CC: DO Lissette Engel DO [address] [place] [id number] * CC: Glen Velasquez DO [address] [place] [id number] Electronically Reviewed/Signed by: Aisha Baeza PA-C Author Signature Dt/Tm:09/07/2023 04:27 PM [facility] [place] [address] Patient Care team information Care Team Personnel Name: ADAL Baeza Lynn 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
--- OUTSIDE RECORDS SUMMARY | 2023-09-21 06:23 | External Medical Summary | Continuity of Care Document ---
Author Name Unknown Organization [facility] [address] [facility] Address [address] [place] [phone] Care Team Providers Care Spar Cap Beveler Name Role Phone Lissette Dailey Primary Care Physician [phone] Encounter [facility] MARIANAN[facility] [id number] Date(s): 09/08/23 - 09/08/23 [facility] [address], [address] [place] [address] [phone] Encounter Diagnosis Body mass index [BMI] 19.9 or less, adult(Discharge Diagnosis) - 09/08/23 CAD in [place] artery(Discharge Diagnosis) - 09/08/23 HTN (hypertension)(Discharge Diagnosis) - 09/08/23 Hyponatremia(Discharge Diagnosis) - 09/08/23 AAA (abdominal aortic aneurysm)(Discharge Diagnosis) - 09/08/23 Discharge Disposition: Home or Self Care Attending Physician: RODNEY Gil Sarah A Referring Physician: MD Steve, Ba Lopez Allergies, Adverse Reactions, Alerts No Known Allergies Assessment and Plan Extracted from: Title:Cardiology Office Visit Note Author:RODNEY Maddox rd, Sarah A Date:09/08/23 Impression: 1. AAA measuring 6.1 cm 2. Myocardialperfusion stress test showingquestionable reversible defectat the left ventricular apex. 3.Echo at [facility] showing ejection fraction of 65 to 60%, no regional wall motion abnormalities, mild concentric left ventricular hypertrophy, sclerotic aortic valve without significant stenosis, small pericardial effusion normal RVSP 4. Advanced atheroscleroticdisease and coronary artery calcifications on CT. 5. CVA 6. Significant hyponatermia 7. Myocardial nuc med stress with questionable reversible defect at the left apex I will request records from her previous hospitalization asI do not have the hospitalizations prior to her [facility]. Her blood pressure is suboptimal.She is currently taking 60 mg of lisinopril. I will have herreduce this to 40 mgwhich is max dose. She willswitch from amlodipine to nifedipine so that it can be increased to 90 mg daily. She will let me know if she is having swelling of lower extremities orGI issues. We discussed that she should avoid diuretics given her significant hyponatremia. We reviewed her stress test. Given its results and her lack of anginal symptoms, she can be treated medically. She is on appropriate medication with statin,aspirin,andACE. She can proceedwith hersurgery from a cardiac perspectivewithout furthercardiac workup. She lizeth moderate risk for cardiac complication makenna-operatively. She had repeat labs todaywhich showed normal sodium level. She does have elevated wbcs though she was not complaining of any illnesssymptoms and actually said she was feeling pretty good. It sounds like there has not been an adequate answer to why she is hyponatremic.It is concerningfor possible SIADH due tomalignancy given that she hasa pericardial effusion, bilateralpleural effusion,and scar-like opacities in both lungs measuring up to 1.8 cm with enlarged mediastinal lymph nodes given her extensive smoking history. Could consider a pulmonology opinion that the scar- like opacities are truly scar and not developing malignancy. She will follow up in 3 months. Medications Albuterol (Eqv-ProAir HFA) 90 mcg/inh inhalation [...] Daily, Disp# 90 tab, Refills: 3, Pharmacy: [id number] Start Date: 09/08/23 Status: Ordered Sodium Chloride 1 g oral tablet Start: 08/27/23 10:38:00 EST, See Instructions, 2 tab po tid Start Date: 08/27/23 Status: Ordered Stiolto Respimat 60 ACT 2.5 mcg-2.5 mcg/inh inhalation aerosol INHALE 2 PUFFS BY MOUTH ONCE DAILY DIRECTED Start Date: 08/27/23 Status: Ordered Mental Status 09/08/23 Mandatory Health Literacy Documentation Yes Health Literacy Communication Barriers N ever Primary Language Vietnamese Problem List Condition Confirmation Course Effective Dates Status Health St atus Informant AAA (abdominal aortic aneurysm) Confirmed Active Tobacco user Confirmed Active Diagnosis Diagnosis Type Effective Dates Health Status Clinical Service Informant Body mass index [BMI] 19.9 or less, adult Discharge Diagnosis 09/08/23 Non-Specified HTN (hypertension) Discharge Diagnosis 09/08/23 Non-Specified CAD in [place] artery Discharge Diagnosis 09/08/23 Non-Specified AAA (abdominal aortic aneurysm) Discharge Diagnosis 09/08/23 Non-Specified Hyponatremia Discharge Diagnosis 09/08/23 Non-Specified Vital Signs Most recent to oldest [Reference Range]: 1 Height 159 cm (09/07/23 3:16 PM) Patient Weight 46.9 kg (09/07/23 3:16 PM) Body Mass Index 18.55 kg/m2 (09/07/23 3:16 PM) Respiratory Rate 18 br/min (09/07/23 3:16 PM) Social History Social History Type Response Smoking Status Current every day he edmundo smoker Sex Female Cardiology Outpatient Note * RODNEY Gil Sarah A: PERFORM, MODIFY, MODIFY, MODIFY, MODIFY Event Display: Cardiology Outpt Note Authored Date: [id number] Primary Care Provider DO Asim Lissette Referring Provider MD Steve, Ba Lopez Chief Complaint pre op History of Present Illness Ms. Arellano presents for preop evaluation for AAA. She was originally admitted to [facility] on August 18 for hyponatremia. She had had a couple of admissions over the course of the fall for hyponatremia as well. She notes thather lowest sodium was in the 1 teens. At after her initial diagnosis of hyponatremia she was put on a very high dose of oral sodium which drove her blood pressure up into the 200s and she subsequently had a stroke. Incidentally found while she was at the hospital was an abdominal aortic aneurysm measuring 6.1 cm. She was then recommended for nuc med stress test for further risk stratification prior to her surgery. She notes thatover the past3 years, since she got her firstCOVID- vaccine,she has beenweakand tired and short of breath with any exertion. Sincehaving her hyponatremiatreated with sodium tabletsher energy is much improved and she is no longer short of breath withexertion. She can walk aroundGoYoDeo stores like [employer] without any difficulty whereas before she could notwalk aroundHactus without having to sit down constantly. She notes that her home blood pressures are ranging 120s to 140s systolically. 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 Respiratory: Lungs are clear to auscultation, Respirations are non-labored. Cardiovascular: Normal rate, Regular rhythm, No murmur, No edema, no carotid bruits to auscultation bilaterally. Integumentary: Warm, Dry, [place] Neurologic: Alert, Oriented. Cognition and Speech: Speech clear and coherent. Psychiatric: Cooperative, Appropriate mood & affect. Diagnostic Results Physical Examination General: Alert and oriented, No acute distress. Respiratory: Lungs are clear to auscultation, Respirations are non-labored. Cardiovascular: Normal rate, Regular rhythm, No murmur, No edema, no carotid bruits to asculatation bilaterally. Integumentary: Warm, Dry, [place] Neurologic: Alert, Oriented. Cognition and Speech: Speech clear and coherent. Psychiatric: Cooperative, Appropriate mood & affect. Assessment/Plan Impression: 1. AAA measuring 6.1 cm 2. Myocardialperfusion stress test showingquestionable reversible defectat the left ventricular apex. 3.Echo at [facility] showing ejection fraction of 65 to 60%, no regional wall motion abnormalities, mild concentric left ventricular hypertrophy, sclerotic aortic valve without significant stenosis, small pericardial effusion normal RVSP 4. Advanced atheroscleroticdisease and coronary artery calcifications on CT. 5. CVA 6. Significant hyponatermia 7. Myocardial nuc med stress with questionable reversible defect at the left apex I will request records from her previous hospitalization asI do not have the hospitalizations prior to her [facility]. Her blood pressure is suboptimal.She is currently taking 60 mg of lisinopril. I will have herreduce this to 40 mgwhich is max dose. She willswitch from amlodipine to nifedipine so that it can be increased to 90 mg daily. She will let me know if she is having swelling of lower extremities orGI issues. We discussed that she should avoid diuretics given her significant hyponatremia. We reviewed her stress test. Given its results and her lack of anginal symptoms, she can be treated medically. She is on appropriate medication with statin,aspirin,andACE. She can proceedwith hersurgery from a cardiac perspectivewithout furthercardiac workup. She lizeth moderate risk for cardiac complication makenna-operatively. She had repeat labs todaywhich showed normal sodium level. She does have elevated wbcs though shewas not complaining of any illnesssymptoms and actually said she was feeling pretty good. It sounds like there has not been an adequate answer to why she is hyponatremic.It is concerningfor possible SIADH due tomalignancy given that she hasa pericardial effusion, bilateralpleural effusion,and scar- like opacities in both lungs measuring up to 1.8 cm with enlarged mediastinal l ymph nodes given her extensive smoking history. Could consider a pulmonology opinion that the scar-like opacities are truly scar and not developing malignancy. She will follow up in 3 months. Problem List/Past Medical History Ongoing AAA (abdominal aortic aneurysm) Tobacco user Medications albuterol(Albuterol (Eqv-ProAir HFA) 90 mcg/inh inhalation aerosol) amLODIPine(amLODIPine 10 mg oral tablet) atorvastatin(atorvastatin 40 mg oral tablet), 40 mg= 1 tab, PO, Daily cloNIDine(cloNIDine 0.1 mg oral tablet) escitalopram(escitalopram 5 mg oral tablet) ferrous sulfate(ferrous sulfate 325 mg (65 mg elemental iron) oral delayed release tablet), 325 mg=1 tab, PO, Daily levothyroxine(levothyroxine 75 mcg (0.075 mg) oral tablet) lisinopril(lisinopril 40 mg oral tablet) lisinopril(lisinopril 20 mg oral tablet) LORazepam(LORazepam 0.5 mg oral tablet) olodaterol-tiotropium(Stiolto Respimat 60 ACT 2.5 mcg-2.5 mcg/inh inhalation aerosol) sodium chloride(Sodium Chloride 1 g oral tablet), See Instructions unlisted medication(ASPIRIN LOW EC 81MG TAB) Allergies NKA Social History Smoking Status Current every day heavy smoker Electronic Signature on File CC: DO Lissette [place] [id number] * CC: Aisha Baeza PA-C [address] [place] [address] CC: Ba Wilson MD [address] [place] [address] Electronically Reviewed/Signed by: RODNEY Munoz Author Signature Dt/Tm:09/09/2023 04:11 PM [facility] [place] [facility] Patient Care team information Care Team Personnel Name: ADAL Baeza Lynn Position: Physician Litigation Services Manager Exempt - Vasc Surg Member Role: Lifetime Relationship Address: Address: [address] [place] [address] [place] Name: DO Dailey Phuong Position: Referring Member Role: Primary Care Provider Address: Address: Lissette Dre Dailey[address] [place] [address] [place]
[2023-09-21] MEDS ORDERED: fentaNYL citrate PF 100 MCG/2 ML VIAL ONE ×2 (07:02→09:37)
[2023-09-21] MEDS ORDERED: MIDAZOLAM HCL 1 MG/ML 2ML VIAL ONE (07:02)
[2023-09-21] MEDS: LR 15ML/HR IV SCH (07:05)
[2023-09-21] MEDS: SODIUM CHLORIDE 0.9% 1000ML IV SCH (07:05)
[2023-09-21] MEDS ORDERED: PROMETHAZINE HCL 6.25 MG in SODIUM CHLORIDE 0.9% 50 ML IV PRN (07:17)
[2023-09-21] MEDS ORDERED: ONDANSETRON INJ 2 MG/ML 2 ML VIAL IV PRN ×2 (07:17→14:13)
[2023-09-21] MEDS ORDERED: HYDROmorphone INJ 1 MG/ML SYRINGE IV PRN (07:17)
[2023-09-21] MEDS ORDERED: ATROPINE SULFATE 0.1 MG/ML 10ML SYR IV PRN (07:17)
[2023-09-21] MEDS ORDERED: DEXAMETHASONE SOD INJ 4 MG/ML VIAL ONE ×2 (07:22)
[2023-09-21] MEDS ORDERED: LIDOCAINE 2% 2 ML VIAL/AMP(20MG/ML) INFIL ONE (07:22)
[2023-09-21] MEDS ORDERED: ONDANSETRON INJ 2 MG/ML 2 ML VIAL ONE (07:22)
[2023-09-21] MEDS ORDERED: PROPOFOL IV EMULSION 10 MG/ML 20 ML VIAL IV ONE (07:22)
[2023-09-21] MEDS ORDERED: ROCURONIUM BROMIDE 10 MG/ML 5 ML VIAL IV ONE ×2 (07:22→09:18)
[2023-09-21] MEDS ORDERED: HEPARIN SOD (PORCINE) 1000 UNIT/ML ONE (07:22)
--- NOTE | 2023-09-21 07:40 | History & Physical Report ---
Date of Service September 21, 2023 History of Present Illness Primary Care Provider: Lissette Dailey Name: CASTRO ARELLANO Patient Number: [id number] : 1945 Date of Service: 09/07/2023 Chief Complaint: _Follow-up after NM myocardial perfusion scan HPI: _Ms. Arellano is an elderly female who presents to Dr. Wilson vascular surgery clinic today for a follow-up appointment to discuss repair of her abdominal arctic aneurysm, after undergoing a myocardial perfusion scan last week. Patient was initially seen by Dr. Wilson and myself while inpatient at [facility], after the hospitalist team had noted 6.3 cm infrarenal abdominal aortic aneurysm on imaging. Patient was initially scheduled to undergo repair while she was inpatient, however, a cardiac evaluation was requested during which a myocardial perfusion scan was recommended due to symptoms of CARSON and lack of regular cardiac care. Patient states overall she is feeling well since being at home. She states she has been taking it easy and not doing much more than what she has to each day. Her 3 children check on her regularly, and 1 even accompanied her to the appointment today. She denies any concerns of shortness of breath, chest pain, abdominal pain, nausea, vomiting, lower extremity claudication, rest pain, nonhealing wounds or ulcers, other complaints. Current Home Meds: (Last Updated 09/07 15:12) LORazepam (LORazepam 0.5 mg oral tablet) TAKE 1/2 (ONE-HALF) TABLET BY MOUTH EVERY 6 HOURS NEEDED FOR ANXIETY albuterol (Albuterol (Eqv-ProAir HFA) 90 mcg/inh inhalation aerosol) INHALE 2 PUFFS BY MOUTH EVERY 6 HOURS NEEDED amLODIPine (amLODIPine 10 mg oral tablet) TAKE 1 TABLET BY MOUTH ONCE DAILY atorvastatin (atorvastatin 40 mg oral tablet) 40 mg PO Daily cloNIDine (cloNIDine 0.1 mg oral tablet) TAKE 1 TABLET BY MOUTH ONCE DAILY NEEDED BP>170/100 escitalopram (escitalopram 5 mg oral tablet) TAKE 1 TABLET BY MOUTH ONCE DAILY ferrous sulfate (ferrous sulfate 325 mg (65 mg elemental iron) oral delayed release tablet) 325 mg PO Daily levothyroxine (levothyroxine 75 mcg (0.075 mg) oral tablet) TAKE 1 TABLET BY MOUTH ONCE DAILY lisinopril (lisinopril 40 mg oral tablet) TAKE 1 TABLET BY MOUTH ONCE DAILY lisinopril (lisinopril 20 mg oral tablet) TAKE 1 TABLET BY MOUTH ONCE DAILY olodaterol-tiotropium (Stiolto Respimat 60 ACT 2.5 mcg-2.5 mcg/inh inhalation aerosol) INHALE 2 PUFFS BY MOUTH ONCE DAILY DIRECTED sodium chloride (Sodium Chloride 1 g oral tablet) 2 tab po tid unlisted medication (ASPIRIN LOW EC 81MG TAB) TAKE 1 TABLET BY MOUTH ONCE DAILY Allergies and Sensitivities: NKA Past Medical History: Problems: AAA (abdominal aortic aneurysm) OBJECTIVE Vitals: Last Updated 09/07/23 15:16 Date Temp BP Location Pulse RR SpO2 Pain 09/07/23 150/62 Left Arm 83 93 Vital Signs are the last 3 documented. No Orthostatic Data Available No Height/Weight Data Available Physical Exam Constitutional: In general patient is a healthy-appearing well-nourished well- developed elderly female in no distress. She is alert and oriented with any focal deficits. She ambulates without assistance. Her heart is regular, her lungs are decreased throughout but clear. Her abdomen is soft nontender with no active bowel sounds, and her 6 cm aneurysm is palpable. Her right femoral pulse is nonpalpable, her left femoral pulse is +3. Her right lower extremity distal pulses are nonpalpable, her left lower extremity distal pulses are +1. ASSESSMENT: _ PLAN: _ 1 ) _abdominal aortic aneurysm, 6 cm Patient does have a large abdominal aortic aneurysm, as well as a known right common iliac artery occlusion. Dr. Wilson had previously recommended that patie nt undergo a percutaneous abdominal aortic aneurysm repair, however, due to her right common iliac artery occlusion, she may require a Uni limb with left to right femorofemoral bypass if the right iliac occlusion is unable to be traversed with a wire. The procedure, risks, benefits, and alternatives were discussed with the patient by myself at Dr. Wilson's request. Patient expressed understanding and agreement to proceed. We will tentatively schedule this for 1 to 2 weeks from now. Her myocardial perfusion scan showed abnormal results, and we recommended that she undergo a formal cardiac clearance to evaluate her cardiac risk prior to her procedure. Patient and her daughter were advised to call with any other questions or concerns. They are agreeable to this plan. Thank you for letting us participate in the care of this patient. I have personally spent_29__ minutes performing [id number] and [id number] activities on this date of service.Time does not include separately reported services. Activities Include: _x_ review of the medical record _x_ obtaining a history _x_ physical exam/evaluation __ review labs _x_ review radiology reports _x_ counseling/educating patient/family/caregiver _x_ discussion/referral to other healthcare professional _x_ documenting care in the medical record __ independent interpretation of results _x_ communication of results to patient/family/caregiver _x_ coordination of care Signature Line Electronic Signature on File CC: Lissette Dailey, DO Lissette Dailey, DO [address] [facility] [id number] * CC: Glen Velasquez DO [address] [facility] [address] [facility] [address] Electronically Reviewed/Signed by: Aisha Baeza PA-C Author Signature Dt/Tm:09/07/2023 04:27 PM [facility] [address] [facility] [address] [place] [address] LM Result Type: HVI Outpt Note Date of Service: September 07, 2023 16:15 EST Authorization Status: Final Author or Import Date: ADAL Baeza Lynn on September 07, 2023 16:27 EST Verified By: ADAL Baeza Lynn on September 07, 2023 16:27 EST Encounter info: [id number], [facility], Clinic, 09/07/2023 - 09/07/2023 Allergies Allergy/AdvReac Type Severity Reaction Status Date / Time No Known Allergies Allergy Verified 09/21/23 06:52 Home Medications Medication Instructions Recorded Confirmed Type albuterol sulfate 90 mcg/actuation 2 puff inhalation Q6H PRN SOB or 08/18/23 09/21/23 History aerosol inhaler wheezing amlodipine 10 mg tablet 10 mg PO QPM 08/18/23 09/21/23 History aspirin 81 mg tablet,delayed 81 mg PO QPM 08/18/23 09/21/23 History release atorvastatin 40 mg tablet 40 mg PO HS 08/18/23 09/21/23 History clonidine HCl 0.1 mg tablet 0.1 mg PO DAILY PRN BP greater 08/18/23 09/21/23 History than 170/100 escitalopram oxalate 10 mg tablet 10 mg PO QPM 08/18/23 09/21/23 History ferrous sulfate 325 mg (65 mg 325 mg PO .LUNCH 08/18/23 09/21/23 History iron) tablet levothyroxine 75 mcg tablet 75 mcg PO QAM 08/18/23 09/21/23 History lisinopril 20 mg tablet See Rx Instructions .Route .COMPLEX 08/18/23 09/21/23 History lisinopril 40 mg tablet See Rx Instructions .Route .COMPLEX 08/18/23 09/21/23 History lorazepam 0.5 mg tablet 0.5 mg PO Q6H PRN Anxiety 08/18/23 09/21/23 History sodium chloride 1,000 mg soluble 2,000 mg PO TID 08/18/23 09/21/23 History tablet tiotropium 2.5 mcg-olodaterol 2.5 2 puff inhalation QAM 08/18/23 09/21/23 History mcg/actuation mist for inhalation (Stiolto Respimat) Past Med/Surg History Medical History CAD (coronary artery disease) Fatigue Hypothyroidism Low sodium levels Anxiety and depression Transient ischemic attack (TIA) 08/2023 treated at [facility] (no deficits from event) Hyperlipidemia Sleep apnea no device AAA (abdominal aortic aneurysm) HTN (hypertension) COPD (chronic obstructive pulmonary disease) Surgical History History of tooth extraction History of tonsillectomy and adenoidectomy History of cataract surgery rt/left Family History Other No family history of adverse response to anesthesia Social History Smoking Status: Current every day smoker Tobacco Type: Cigarettes Cigarettes Per Day: 20 cig daily>advised NPO; Second Hand Exposure: Yes (as a child); Do You Dip or Chew Tobacco: No; Hx Alcohol Use: No Hx Substance Use: No Preferred Language: Maltese Communication Ability: Effective Cooling Pipe Inspector Required: No Beliefs That Will Affect Care: None Current Living Situation: Alone Feels Safe at Home: Yes Safety Concerns: Feels Safe At This Time Assistive Devices: Denture - Upper and Denture - Lower Results & Data Vital Signs (Past 12 Hours) Vital Signs Temp Pulse Resp BP BP Pulse Ox O2 Del Method 09/21/23 07:01 Room Air 09/21/23 06:27 36.5 C 68 18 121/48 L 126/53 L 93 Room Air
--- NOTE | 2023-09-21 07:41 | History & Physical Bridge Note ---
Date of Service September 21, 2023 History & Physical Bridge Note I have examined the patient, reviewed the History & Physical and in the interval since the performance of the History & Physical I have noted the following changes of clinical significance: no changes noted
[2023-09-21] MEDS: ceFAZolin 2000MG 2,000 MG/15 ML SYR IV SCH ×2 (08:05→17:35)
[2023-09-21] MEDS ORDERED: PHENYLEPHRINE HCL 25 MG/250 ML NSS IV ONE (08:40)
[2023-09-21] MEDS ORDERED: PHENYLEPHRINE 100MCG/ML 10ML SYR IV ONE (08:40)
[2023-09-21] MEDS ORDERED: ePHEDrine sulfate 50 MG/5 ML SYR ONE (09:02)
[2023-09-21] MEDS: GELATIN SPONGE SZ 100 ONE (10:07)
[2023-09-21] MEDS: THROMBIN FOR SOLN 20000 UNIT KIT ONE (10:07)
[2023-09-21] MEDS ORDERED: ALBUMIN HUMAN 5% 12.5 GM/250 ML VIAL IV ONE (10:50)
[2023-09-21] MEDS ORDERED: PROTAMINE SULFATE 10 MG/ML 5 ML VIAL IV ONE (10:50)
[2023-09-21] MEDS ORDERED: GLYCOPYRROLATE 0.2 MG/ML VIAL ONE (11:02)
[2023-09-21] MEDS ORDERED: NEOSTIGMINE METHYLSULFATE 1 MG/ML 10ML VIAL ONE (11:02)
[2023-09-21] MEDS: ceFAZolin 330 MG/ML 1 GM VIAL ONE (11:02)
[2023-09-21] MEDS: BUPIVACAINE/EPINEPHRINE 0.5% MPF 1:200,000 30 ML VIAL ONE (11:03)
[2023-09-21] MEDS: PAPAVERINE HCL INJ 30 MG/ML 2 ML VIAL ONE (11:03)
[2023-09-21] MEDS: HEPARIN (PORCINE) 1000 UNIT/ML 10 ML (CATH LAB USE ONLY) ONE (11:03)
[2023-09-21] MEDS: LIDOCAINE 1% LOCAL 20 ML VIAL ONE (11:03)
[2023-09-21] MEDS: VISIPAQUE IV PRN (11:17)
--- NOTE | 2023-09-21 11:30 | Procedure Note ---
Angiogram Post Procedure Fluoroscopy Time (minutes): 18.9 Radiation (mGy): 175 Contrast: 95 Post Operative Report Pre & Post Diagnosis Operation Date: 09/21/23 08:00 Pre-Op Diagnosis: Abdominal Aortic Aneurysm Post-Op Diagnosis: Abdominal Aortic Aneurysm I identified the patient and participated in the time-out.: Yes Procedure Operation Date: 09/21/23 08:00 Actual Procedures p uni limb endvascular aneurysm repair, Right to Left Femoral to Femoral artery bypass, embolization of left common illiac artery with amplatz plug, bilateral groin exposure, right common femoral endarterectomy with bovine patch (Not Applicable) - Ba Wilson MD Surgeon Ba Wilson MD Inseam Trimmer Arina,PAC Estimated Blood Loss 100 Findings Consistent with Post-Op Diagnosis Specimens none Anesthesia Type General Complications none Disposition Accompanied Patient To Recovery: No Disposition: Recovery Room Indications This is a 77-year-old female with a large abdominal aortic aneurysm. She was also found to have a left common iliac artery occlusion.We recommended an attempt at that crossing the left common iliac artery occlusion. This cannot be done then a Uni limb graft would be performed with a femorofemoral bypass. She understood the risk options and benefits and agrees to go ahead with this approach. Description of Procedure The patient was taken the operating room placed spine position. After general anesthesia was accomplished both groins were prepped and draped in a sterile manner. The patient was identified and a timeout was performed. A longitudinal groin incision was made in the left groiThis carried down to where the common femoral artery was identified. It was isolated in the lumen down to beyond the bifurcation. It was soft with mild posterior plaque. The common femoral artery and left side was then punctured and an 8 [place] sheath was inserted. We did use multiple attempts with the 035 wires, A quick cross catheter, and a Kumpe catheter.We cannot stay true lumen. It was then decided to go ahead and do a unilimb endograft. A cutdown was then made in the right groin. The common femoral artery was exposed and the inguinal ligament down to beyond the bifurcation. There is a large amount of posterior plaque present. We punctured the artery and passed the 8 [place] sheath. Using an 035 wire the wire was passed up through the aneurysm sac into the suprarenal aorta. A Kumpe catheter was then inserted. The wire was exchanged for a Bella wire. The 8 [place] sheath was removed and an 18 [place] sheath was then inserted and passive into the aortic sac. Pigtail catheter was then inserted over the 035 wire. A 035 wire was removed. Aortography was performed showing the right and left renal artery. There was a shortened echo which was fairly small. There was a lengthy section which was approximately 28 mm in size. It was decided to use a 36 x 14 x 14 Dracut excluder. The wire was reinserted and the pigtail catheter was removed. We then inserted a 36 x 14 and half by 14 conformable graft. This was placed just below the renal arteries which were marked on the aortogram. the wire was exchanged to an advantage wire. The graft was then deployed at that level. We then remove the wire and then a hand-injection to the device which showed the device to land right at the beginning of the slightly dilated area. There was a good seal noted. We then reinserted the wire. The device was removed and we reinserted a 36 x 14.5 x 14 conformable to make the Uni limb. This was put at 180 degree angle from the previous graft. It was then deployed at the slightly higher level without difficulty. Another hand-injection was done after the wire was removed which showed the graft to sit in a good position with no evidence of endoleak's. The wire was reinserted and the device was removed. Before we extended the right limb we went up with a Q50 balloon and ballooned the tube in place grafts. Once this was done hand-injection was performed after we pulled the 18 [place] sheath down into the external iliac. We decided at that point to use a 12 x 20 limb on the right side. This was inserted with the distal limb just above the iliac bifurcation. There was a good length of overlap. Once this was deployed we then used the Dracut balloon expandable balloon and balloon the overlaps of the right limb extension. Once this was done we reinserted the pigtail. Aortography was performed which showed no evidence of a type I or type II endoleak. There was good flow through the graft. No narrowings were seen in the graft. That point the pigtail was removed. The 12 [place] sheath in the right groin was removed and the femoral artery was clamped proximally at the lingual ligament superficial femoral and profundofemoral artery were then clamped distally and the incision. A longitudinal arteriotomy was started in the common femoral artery and carried upward and downward. There is a large posterior plaque seen. Endarterectomy was then performed of the common femoral artery. This extended downward and just beyond the origin of the superficial femoral artery. There is a good break-up point at that level. We then used a bovine patch and did a patch angioplasty of the common femoral artery. This was sewn in place with 6-0 Prolene suture in the usual vascular fashion. Once this was completed a subcutaneous tunnel was made between the right and left groin and a 6 mm ringed propatent graft was then passed. We used a 6 mm due to the size of the common femoral artery. The right side of the graft was then beveled and end to side anastomosis was accomplished using 5-0 Prolene suture in the usual vascular fashion. Once this was completed the graft was flushed. Clamp was placed on the graft just beyond the anastomosis. The plan was removed from the profundus common femoral followed by the superficial femoral arteries. Good Doppler signals were heard distally beyond the anastomosis. The left common femoral artery was then clamped proximally distally and the 8 [place] sheath removed. Longitudinal arteriotomy was started on the common femoral artery extended downward. We then replaced the clamps on the profunda and superficial femoral artery and extended the arteriotomy slightly beyond the origin of the superficial femoral artery. The Dracut-Dionicio graft from the femorofemoral bypass was then beveled and cut the appropriate length. An end to side anastomosis was accomplished between the left side of the graft and the left common femoral artery using a 5-0 Prolene suture again in the usual vascular fashion. Prior to completion of closure backbleeding and forward bleeding was allowed to occur. The final few sutures were then placed and securely tied. Clamps were then removed. Excellent flow was seen in the superficial and profundofemoral artery beyond the anastomosis. Adequate hemostasis was then obtained. Patient was given 25 mg of protamine. She had been given a total of 10,000 heparin during the case. After adequate hemostasis was noted, The wounds were then closed in the usual fashion using a running 2-0 Vicryl suture for the femoral sheaths and a running 3-0 Vicryl suture for the subcutaneous layer. Elise were used for the skin edges. Bianca dressings were then applied to both groins. The patient left the operation room in satisfactory condition and tolerated the procedure well. All needle and sponge counts were correct at the end of the procedure. Aisha Baeza Pac assisted due to lack of resident availability and was necessary for positioning, draping, retraction, wound closure deep layers, subcutaneous tissue, and skin closure and was necessary for assisting with the case. I attest to the content of the Intraoperative Record and any orders documented therein. Any exceptions are noted below.
[2023-09-21] MEDS: PHENYLEPHRINE 100MCG/ML 5ML SYR IV PRN (11:54)
[2023-09-21 12:03] LABS: BUN Creatinine Ratio 18.1 (10-20); Calcium 7.8 mg/dl (8.6-10.3); Creatinine Clr Calc Pharmacy 42.2 ml/min; Est GFR (African American) 79.4 ml/min; Est GFR (Non-African American) 68.5 ml/min; Potassium 4.6 mmol/L (3.5-5.1)
[2023-09-21] MEDS: ePHEDrine sulfate 50 MG/ML AMP IV PRN (12:03)
[2023-09-21 12:04] LABS: Hematocrit (blood only) 27.2 % (37.0-47.0); Hemoglobin 8.9 g/dl (12.0-16.0)
[2023-09-21] MEDS: PHENYLEPHRINE 100MCG/ML 5ML SYR ONE (12:54)
[2023-09-21] MEDS: ALBUTEROL 0.083% NEBU SOLN 3 ML VIAL ONE (13:23)
--- NOTE | 2023-09-21 13:39 | Anesthesiology Progress Note ---
Date of Service September 21, 2023 Anesthesia Post Procedure Vital Signs Vital Signs: Temp Pulse Pulse Resp BP BP Pulse Ox 09/21/23 13:35 36.4 C L 92 H 20 102/46 L 98/47 L 92 09/21/23 13:25 93 H 15 100/50 L 101/46 L 95 09/21/23 13:15 95 H 21 99/55 L 91/42 L 88 L 09/21/23 13:05 94 H 21 97/49 L 104/44 L 87 L 09/21/23 12:55 94 H 19 101/53 L 104/41 L 86 L 09/21/23 12:45 93 H 20 102/41 L 96/47 L 91 09/21/23 12:35 96 H 18 99/40 L 95/50 L 89 L 09/21/23 12:25 95 H 19 96/38 L 95/47 L 90 09/21/23 12:15 89 18 102/40 L 101/48 L 89 L 09/21/23 12:05 101 H 17 102/40 L 108/49 L 87 L 09/21/23 11:55 92 H 18 100/41 L 103/51 L 88 L 09/21/23 11:45 94 H 17 86/36 L 99/44 L 89 L 09/21/23 11:35 90 17 139/41 L 122/52 L 91 09/21/23 11:28 36.9 C 89 18 87/35 L 98/47 L 93 09/21/23 07:01 09/21/23 06:27 36.5 C 68 18 121/48 L 126/53 L 93 O2 Del Method O2 Flow Rate 09/21/23 13:35 Oxymask 5 09/21/23 13:25 Nebulizer 10 09/21/23 13:15 Oxymask 6 09/21/23 13:05 Nasal Cannula 5 09/21/23 12:55 Nasal Cannula 5 09/21/23 12:45 Non-rebreather 7 09/21/23 12:35 Non-rebreather 7 09/21/23 12:25 Non-rebreather 9 09/21/23 12:15 Oxymask 7 09/21/23 12:05 Oxymask 7 09/21/23 11:55 Oxymask 7 09/21/23 11:45 Oxymask 7 09/21/23 11:35 Oxymask 7 09/21/23 11:28 Oxymask 7 09/21/23 07:01 Room Air 09/21/23 06:27 Room Air Pain Intensity Right Lower Abdomen: Pain Intensity: 2 Transfer of Care Handoff Completed per policy Notes Mental Status: alert / awake / arousable Patient Amnestic to Procedure: Yes Nausea / Vomiting: adequately controlled Pain: adequately controlled Airway Patency, RR, SpO2: stable & adequate BP & HR: stable & adequate Hydration State: stable & adequate Anesthetic Complications: no major complications apparent
[2023-09-21] MEDS ORDERED: lisinopril 40 MG TAB PO SCH (14:13)
[2023-09-21] MEDS ORDERED: MoRPHine SULFATE 4 MG/ML 1 ML CARP\\VIAL IV PRN (14:13)
[2023-09-21] MEDS ORDERED: LORazepam 0.5 MG TAB PO PRN (14:13)
[2023-09-21] MEDS ORDERED: ALBUTEROL HFA 8 GM INHALER INH PRN (14:13)
[2023-09-21] MEDS ORDERED: oxyCODONE/ACETAMINOPHEN 5mg/325mg TAB PO PRN (14:13)
[2023-09-21] MEDS ORDERED: cloNIDine HCL 0.1 MG TAB PO PRN (14:13)
[2023-09-21] MEDS ORDERED: STAT IV Infusion **Titration per Protocol STA (14:17)
[2023-09-21] MEDS: ALBUTEROL 0.083% NEBU SOLN 3 ML VIAL NEB STA (14:28)
[2023-09-21] MEDS: LACTATED RINGER'S 1,000 ML IV SCH (15:12)
[2023-09-21] MEDS: SODIUM CHLORIDE 1 GM TABLET PO SCH (15:25)
[2023-09-21] MEDS: FERROUS SULFATE 325 MG TAB PO SCH (15:26)
[2023-09-21] MEDS: lisinopril 20 MG TAB PO SCH (16:44)
--- NOTE | 2023-09-21 17:26 | Consultation ---
Date of Consultation September 21, 2023 Assessment & Plan (1) AAA (abdominal aortic aneurysm): Postoperative observation. (2) CAD (coronary artery disease): (3) History of CVA (cerebrovascular accident): (4) HTN (hypertension): (5) COPD (chronic obstructive pulmonary disease): History of Present Illness Reason for Consultation: Endovascular repair of abdominal aortic aneurysm Attending Physician: Ba Wilson MD History of Present Illness Patient is a 77-year-old female with past medical history of hyponatremia, CVA, COPD, hypertension who has a 60+ pack year smoking history who is postop day 0 from a endovascular AAA repair. She feels okay, has taken some fluids has not eaten yet in the postoperative period. She is currently without chest pain or shortness of breath Allergies Allergy/AdvReac Type Severity Reaction Status Date / Time No Known Allergies Allergy Verified 09/21/23 06:52 Home Medications Medication Instructions Recorded Confirmed Type albuterol sulfate 90 mcg/actuation 2 puff inhalation Q6H PRN SOB or 08/18/23 09/21/23 History aerosol inhaler wheezing amlodipine 10 mg tablet 10 mg PO QPM 08/18/23 09/21/23 History aspirin 81 mg tablet,delayed 81 mg PO QPM 08/18/23 09/21/23 History release atorvastatin 40 mg tablet 40 mg PO HS 08/18/23 09/21/23 History clonidine HCl 0.1 mg tablet 0.1 mg PO DAILY PRN BP greater 08/18/23 09/21/23 History than 170/100 escitalopram oxalate 10 mg tablet 10 mg PO QPM 08/18/23 09/21/23 History ferrous sulfate 325 mg (65 mg 325 mg PO .LUNCH 08/18/23 09/21/23 History iron) tablet levothyroxine 75 mcg tablet 75 mcg PO QAM 08/18/23 09/21/23 History lisinopril 20 mg tablet See Rx Instructions .Route .COMPLEX 08/18/23 09/21/23 History lisinopril 40 mg tablet See Rx Instructions .Route .COMPLEX 08/18/23 09/21/23 History lorazepam 0.5 mg tablet 0.5 mg PO Q6H PRN Anxiety 08/18/23 09/21/23 History sodium chloride 1,000 mg soluble 2,000 mg PO TID 08/18/23 09/21/23 History tablet tiotropium 2.5 mcg-olodaterol 2.5 2 puff inhalation QAM 08/18/23 09/21/23 History mcg/actuation mist for inhalation (Stiolto Respimat) Patient History Medical History CAD (coronary artery disease) Fatigue Hypothyroidism Low sodium levels Anxiety and depression Transient ischemic attack (TIA) 08/2023 treated at [facility] (no deficits from event) Hyperlipidemia Sleep apnea no device AAA (abdominal aortic aneurysm) HTN (hypertension) COPD (chronic obstructive pulmonary disease) Surgical History History of tooth extraction History of tonsillectomy and adenoidectomy History of cataract surgery rt/left Family History Other No family history of adverse response to anesthesia Social History Smoking Status: Current every day smoker Tobacco Type: Cigarettes Cigarettes Per Day: 20 cig daily>advised NPO; Second Hand Exposure: Yes (as a child); Do You Dip or Chew Tobacco: No; Hx Alcohol Use: No Hx Substance Use: No Preferred Language: Croatian Communication Ability: Effective Process Laboratory Specialist Required: No Beliefs That Will Affect Care: None Current Living Situation: Alone Feels Safe at Home: Yes Safety Concerns: Feels Safe At This Time Assistive Devices: Denture - Upper and Denture - Lower Review of Systems Review of Systems: No chest pain or shortness of breath Physical Exam Physical Exam: General: Alert. nontoxic. Skin: Warm, dry, Head: Atraumatic Ears, nose, mouth and throat: airway patent Cardiovascular: Normal peripheral perfusion Respiratory: no respiratory distress Gastrointestinal: Non distended Musculoskeletal: Wound VAC in bilateral groins, no ecchymoses Results & Data Vital Signs (Past 12 Hours) Vital Signs Temp Pulse Pulse Pulse Resp BP BP 09/21/23 16:30 81 16 114/47 L 09/21/23 16:15 78 17 111/46 L 09/21/23 16:00 88 16 117/51 L 09/21/23 15:30 91 H 20 97/47 L 09/21/23 15:15 90 18 82/55 L 09/21/23 15:00 94/46 L 09/21/23 14:45 90 21 90/48 L 09/21/23 14:30 87 20 111/52 L 09/21/23 14:13 87 18 108/51 L 09/21/23 13:35 36.4 C L 92 H 20 102/46 L 09/21/23 13:25 93 H 15 100/50 L 09/21/23 13:15 95 H 21 99/55 L 09/21/23 13:05 94 H 21 97/49 L 09/21/23 12:55 94 H 19 101/53 L 09/21/23 12:45 93 H 20 102/41 L 09/21/23 12:35 96 H 18 99/40 L 09/21/23 12:25 95 H 19 96/38 L 09/21/23 12:15 89 18 102/40 L 09/21/23 12:05 101 H 17 102/40 L 09/21/23 11:55 92 H 18 100/41 L 09/21/23 11:45 94 H 17 86/36 L 09/21/23 11:35 90 17 139/41 L 09/21/23 11:28 36.9 C 89 18 87/35 L 09/21/23 07:01 09/21/23 06:27 36.5 C 68 18 121/48 L BP Pulse Ox O2 Del Method O2 Flow Rate 09/21/23 16:30 98 09/21/23 16:15 96 09/21/23 16:00 96 09/21/23 15:30 90 4 09/21/23 15:15 91 Nasal Cannula 4 09/21/23 15:00 09/21/23 14:45 90 09/21/23 14:30 91 09/21/23 14:13 92 09/21/23 13:35 98/47 L 92 Oxymask 5 09/21/23 13:25 101/46 L 95 Nebulizer 10 09/21/23 13:15 91/42 L 88 L Oxymask 6 09/21/23 13:05 104/44 L 87 L Nasal Cannula 5 09/21/23 12:55 104/41 L 86 L Nasal Cannula 5 09/21/23 12:45 96/47 L 91 Non-rebreather 7 09/21/23 12:35 95/50 L 89 L Non-rebreather 7 09/21/23 12:25 95/47 L 90 Non-rebreather 9 09/21/23 12:15 101/48 L 89 L Oxymask 7 09/21/23 12:05 108/49 L 87 L Oxymask 7 09/21/23 11:55 103/51 L 88 L Oxymask 7 09/21/23 11:45 99/44 L 89 L Oxymask 7 09/21/23 11:35 122/52 L 91 Oxymask 7 09/21/23 11:28 98/47 L 93 Oxymask 7 09/21/23 07:01 Room Air 09/21/23 06:27 126/53 L 93 Room Air PG Care Time/CCT Total # of Minutes Spent Total Time Spent with Patient: Total time spent is greater than 50% in coordination of care (as documented) at patient's floor/unit and/or counseling patient: Coding Level of Care Code 97168 INT INP/OBS CARE MIN Diagnoses AAA (abdominal aortic aneurysm) I71.40 CAD (coronary artery disease) I25.10 History of CVA (cerebrovascular accident) Z86.73 HTN (hypertension) I10 COPD (chronic obstructive pulmonary disease) J44.9
[2023-09-21] MEDS: ESCITALOPRAM OXALATE 10 MG TAB PO SCH (21:46)
[2023-09-21] MEDS: amLODIPine BESYLATE 5 MG TAB PO SCH (21:47)
[2023-09-21] MEDS: ATORVASTATIN 40 MG TAB PO SCH (21:47)
[2023-09-21] MEDS: ASPIRIN 81 MG ECTAB PO SCH (21:47)
[2023-09-22 05:15] LABS: Basophils # (auto) 0.03 K/uL (0.00-0.20); Basophils % (auto) 0.2 %; Hematocrit (blood only) 24.8 % (37.0-47.0); Hemoglobin 8.1 g/dl (12.0-16.0); Immature Granulocytes # (auto) 0.09 K/uL (0.01-0.20); Immature Granulocytes % (auto) 0.6 %; Lymphocytes # (auto) 1.03 K/uL (1.20-3.40); Lymphocytes % (auto) 6.8 %; Mean Corpuscular Hemoglobin 30.3 pg (25.0-34.0); Mean Corpuscular Hgb Conc 32.7 g/dL (32.0-36.0); Mean Corpuscular Volume 92.9 fL (80.0-100.0); Mean Platelet Volume 9.7 fL (9.4-12.4); Monocytes # (auto) 1.36 K/uL (0.11-0.59); Monocytes % (auto) 8.9 %; Neutrophils # (auto) 12.73 K/uL (1.40-6.50); Neutrophils % (auto) 83.5 %; Platelet Count 203 K/uL (130-400); RDW Coefficient of Variation 15.4 % (11.5-14.5); RDW Standard Deviation 52.1 fL (36.4-46.3); Red Blood Count 2.67 M/uL (4.20-5.40); White Blood Count 15.24 K/ul (4.8-10.8)
[2023-09-22 05:29] LABS: BUN Creatinine Ratio 27.5 (10-20); Calcium 8.3 mg/dl (8.6-10.3); Creatinine Clr Calc Pharmacy 47.6 ml/min; Est GFR (Non-African American) 71.6 ml/min; Potassium 4.5 mmol/L (3.5-5.1)
[2023-09-22] MEDS: LEVOTHYROXINE SODIUM 75 MCG TABLET PO SCH (06:19)
[2023-09-22] MEDS: UMECLIDINIUM/VILANTEROL 62.5/25MCG 7 PUFFS/INHALER INH SCH (07:49)
[2023-09-22] MEDS: PHENYLEPHRINE/NSS 25 MG/250 ML BAG IV SCH (10:39)
--- NOTE | 2023-09-22 11:36 | Surgery Progress Note ---
Date of Service September 22, 2023 Assessment & Plan (1) AAA (abdominal aortic aneurysm): Plan: Post op day #1 from a EVAR with fem fem bypass. She is doing well. Good distal flow Will transfer to floor Increase activity. (2) Acute blood loss anemia: Plan: Hgb 8.1 today. Drop from surgical loss and hydration. Repeat h/h tomorrow Admission and Anticipated Discharge Date Admission Date: September 21, 2023 Subjective Patient's only complaint is groin pain when coughing. Feet feel line. No foot or leg pain Physical Exam Constitutional: WD/WN, vitals as above Respiratory: normal respiratory effort; no respiratory distress Cardiovascular: Rate/Rhythm: regular rate and regular rhythm Extremities: normal capillary refill Gastrointestinal (Abdomen): Inspection/Auscultation: abdomen normal to inspection; abdomen not distended Skin: + incision (prevena dressings intact) Neurologic: CN's II-XI intact bilaterally and moves all extremities Psychiatric: Orientation: alert and oriented x 3 Results & Data Vital Signs (Past 12 Hours) Vital Signs Temp Pulse Resp BP Pulse Ox O2 Del Method O2 Flow Rate 09/22/23 09:00 36.6 C 09/22/23 09:00 76 21 93 09/22/23 09:00 113/46 L 09/22/23 08:30 71 20 93 09/22/23 08:30 113/47 L 09/22/23 08:30 113/47 L 09/22/23 08:00 Nasal Cannula 09/22/23 08:00 76 113/46 L 09/22/23 08:00 76 09/22/23 08:00 Nasal Cannula 3 09/22/23 08:00 64 21 94 09/22/23 08:00 107/49 L 09/22/23 08:00 107/49 L 09/22/23 07:30 108/50 L 09/22/23 07:30 80 24 90 09/22/23 07:00 131/55 L 09/22/23 07:00 131/55 L 09/22/23 07:00 85 19 96 09/22/23 06:30 77 18 94 09/22/23 06:30 117/52 L 09/22/23 06:30 117/52 L 09/22/23 06:00 77 16 95 09/22/23 06:00 123/53 L 09/22/23 06:00 123/53 L 09/22/23 05:30 80 19 93 09/22/23 05:30 121/52 L 09/22/23 05:30 121/52 L 09/22/23 05:00 74 18 92 09/22/23 05:00 117/48 L 09/22/23 05:00 117/48 L 09/22/23 05:00 36.8 C 09/22/23 04:30 77 17 92 09/22/23 04:30 122/49 L 09/22/23 04:30 122/49 L 09/22/23 04:00 118/48 L 09/22/23 04:00 75 17 92 09/22/23 04:00 79 120/36 L 09/22/23 03:30 80 16 93 09/22/23 03:30 121/52 L 09/22/23 03:30 121/52 L 09/22/23 03:00 105/48 L 09/22/23 03:00 75 18 90 09/22/23 02:30 77 17 94 09/22/23 02:30 116/48 L 09/22/23 02:30 116/48 L 09/22/23 02:00 120/49 L 09/22/23 02:00 78 17 94 09/22/23 01:30 106/49 L 09/22/23 01:30 106/49 L 09/22/23 01:30 74 18 91 09/22/23 01:00 104/44 L 09/22/23 01:00 72 21 90 09/22/23 01:00 36.7 C 09/22/23 00:30 80 18 93 09/22/23 00:30 117/46 L 09/22/23 00:30 117/46 L 09/22/23 00:00 107/46 L 09/22/23 00:00 74 21 92 09/22/23 00:00 78 125/37 L 09/22/23 00:00 77
[2023-09-23 06:26] LABS: Basophils # (auto) 0.05 K/uL (0.00-0.20); Basophils % (auto) 0.4 %; Eosinophils # (auto) 0.17 K/uL (0.00-0.50); Eosinophils % (auto) 1.2 %; Hematocrit (blood only) 23.8 % (37.0-47.0); Hemoglobin 7.9 g/dl (12.0-16.0); Immature Granulocytes # (auto) 0.08 K/uL (0.01-0.20); Immature Granulocytes % (auto) 0.6 %; Lymphocytes # (auto) 1.34 K/uL (1.20-3.40); Lymphocytes % (auto) 9.5 %; Mean Corpuscular Hemoglobin 31.1 pg (25.0-34.0); Mean Corpuscular Hgb Conc 33.2 g/dL (32.0-36.0); Mean Corpuscular Volume 93.7 fL (80.0-100.0); Mean Platelet Volume 9.6 fL (9.4-12.4); Monocytes % (auto) 10.6 %; Neutrophils # (auto) 10.98 K/uL (1.40-6.50); Neutrophils % (auto) 77.7 %; Platelet Count 164 K/uL (130-400); RDW Coefficient of Variation 15.8 % (11.5-14.5); RDW Standard Deviation 54.3 fL (36.4-46.3); Red Blood Count 2.54 M/uL (4.20-5.40); White Blood Count 14.12 K/ul (4.8-10.8)
[2023-09-23 06:50] LABS: RBC Morphology Unremarkable
[2023-09-23 06:56] LABS: BUN Creatinine Ratio 36.8 (10-20); Calcium 8.1 mg/dl (8.6-10.3); Creatinine Clr Calc Pharmacy 50.5 ml/min; Est GFR (African American) 88.3 ml/min; Est GFR (Non-African American) 76.2 ml/min; Potassium 4.2 mmol/L (3.5-5.1)
[2023-09-23] MEDS: DOCUSATE SODIUM 100 MG CAP PO SCH (09:52)
[2023-09-23] MEDS: ESCITALOPRAM OXALATE 10 MG TAB PO SCH (09:52)
[2023-09-23] MEDS: BUMETANIDE 0.5 MG in SYRINGE 0 ML IV ONE (09:53)
--- NOTE | 2023-09-23 10:58 | XRay Report ---
XR chest 2V PA/lateral HISTORY: Shortness of breath. COMPARISON: Chest 08/18/2023. FINDINGS: No pneumothorax. The heart is normal in size. The lungs are hyperexpanded with apical predo minant emphysematous changes. Diffuse interstitial thickening and bibasilar interstitial opacities pe rsist. Small right and trace left pleural effusions again noted. Calcifications within the aortic kno b. Partially visualized aortic stent graft. No acute fractures. IMPRESSION: 1. No significant change in the diffuse interstitial thickening with bibasilar interstitial opacities . 2. Small right and trace left pleural effusions again noted. 3. Emphysema. ACT 112: Negative or not required by law. Electronically signed by: Jim Wagn M.D. 09/23/2023 10:57 AM
--- NOTE | 2023-09-23 13:32 | Surgery Progress Note ---
Date of Service September 23, 2023 Assessment & Plan (1) AAA (abdominal aortic aneurysm): Plan: Post op day #2 s/p evar with R to L fem fem BPG, doing well post op. Still requiring oxygen at 3 L. Attempt to wean, will reeval tomorrow. Increase activity, participated in PT/OT today, will require rehab at d/c, hopefully THURSDAY. (2) Acute blood loss anemia: Plan: Hgb 7.9 today, relatively stable, was 8.1 yesterday. Admission and Anticipated Discharge Date Admission Date: September 21, 2023 Subjective 77 yo f POD #2 after evar with R to L fem fem BPG, seen in f/u today. Pt states feeling ok, just tired. Admits BL groin pain, but nothing new. Still on oxygen, 3L at rest. Review of Systems Review of Systems: All systems reviewed & are unremarkable except as noted in HPI & below Physical Exam Constitutional: WD/WN, vitals as above Respiratory: normal respiratory effort; no respiratory distress Cardiovascular: Rate/Rhythm: regular rate and regular rhythm Extremities: normal capillary refill Gastrointestinal (Abdomen): Inspection/Auscultation: abdomen normal to inspection; abdomen not distended Skin: + incision (prevena dressings intact) Neurologic: CN's II-XI intact bilaterally and moves all extremities Psychiatric: Orientation: alert and oriented x 3 Results & Data Vital Signs (Past 12 Hours) Vital Signs Temp Pulse Resp BP Pulse Ox O2 Del Method O2 Flow Rate 09/23/23 11:14 83 16 116/50 L 96 Nasal Cannula 3 09/23/23 07:50 37.1 C 86 16 110/54 L 92 Nasal Cannula 3 09/23/23 07:45 Nasal Cannula 3 09/23/23 05:02 36.8 C 91 H 20 113/59 L 92 Nasal Cannula 3
[2023-09-24 06:09] LABS: Basophils # (auto) 0.05 K/uL (0.00-0.20); Basophils % (auto) 0.3 %; Eosinophils # (auto) 0.34 K/uL (0.00-0.50); Eosinophils % (auto) 2.3 %; Hematocrit (blood only) 24.5 % (37.0-47.0); Hemoglobin 7.8 g/dl (12.0-16.0); Immature Granulocytes % (auto) 0.7 %; Lymphocytes # (auto) 2.08 K/uL (1.20-3.40); Lymphocytes % (auto) 13.8 %; Mean Corpuscular Hemoglobin 30.1 pg (25.0-34.0); Mean Corpuscular Hgb Conc 31.8 g/dL (32.0-36.0); Mean Corpuscular Volume 94.6 fL (80.0-100.0); Mean Platelet Volume 9.9 fL (9.4-12.4); Monocytes # (auto) 1.73 K/uL (0.11-0.59); Monocytes % (auto) 11.5 %; Neutrophils # (auto) 10.72 K/uL (1.40-6.50); Neutrophils % (auto) 71.4 %; Platelet Count 180 K/uL (130-400); RDW Coefficient of Variation 15.6 % (11.5-14.5); RDW Standard Deviation 54.2 fL (36.4-46.3); Red Blood Count 2.59 M/uL (4.20-5.40); White Blood Count 15.02 K/ul (4.8-10.8)
[2023-09-24 06:27] LABS: BUN Creatinine Ratio 37.3 (10-20); Calcium 8.1 mg/dl (8.6-10.3); Creatinine Clr Calc Pharmacy 57.3 ml/min; Est GFR (Non-African American) 85.4 ml/min; Potassium 3.7 mmol/L (3.5-5.1)
[2023-09-24 06:49] LABS: RBC Morphology Unremarkable
--- NOTE | 2023-09-24 15:45 | Surgery Progress Note ---
Date of Service September 24, 2023 Assessment & Plan (1) AAA (abdominal aortic aneurysm): Plan: Post op day #3 s/p evar with R to L fem fem BPG, doing well. now on 2l O2 with a sat of 93 Can d/c when placement available. (2) Acute blood loss anemia: Plan: Hgb 7.8 and stable since surgery. Admission and Anticipated Discharge Date Admission Date: September 21, 2023 Subjective 77 yo f POD #3 after evar with R to L fem fem BPG. Doing well without complaints Physical Exam Constitutional: WD/WN, vitals as above Respiratory: normal respiratory effort; no respiratory distress Cardiovascular: Rate/Rhythm: regular rate and regular rhythm Vessels: dorsalis pedis pulses present Extremities: normal capillary refill Gastrointestinal (Abdomen): Percussion/Palpation: abdomen soft; abdomen nont luana Skin: + incision (prevena dressings intact) Neurologic: CN's II-XI intact bilaterally and moves all extremities Psychiatric: Orientation: alert and oriented x 3 Results & Data Vital Signs (Past 12 Hours) Vital Signs Temp Pulse Resp BP Pulse Ox O2 Del Method O2 Flow Rate 09/24/23 15:18 36.5 C 80 16 115/54 L 93 Nasal Cannula 2 09/24/23 08:49 101/45 L 09/24/23 07:50 Nasal Cannula 2 09/24/23 07:35 37.0 C 79 16 102/53 L 94 Nasal Cannula 2
--- NOTE | 2023-09-25 09:45 | Surgery Progress Note ---
Date of Service September 25, 2023 Assessment & Plan (1) AAA (abdominal aortic aneurysm): Plan: Post op day #4 s/p evar with R to L fem fem BPG, doing well. now on 2l O2 with a sat of 93 D/C to rehab today. (2) Acute blood loss anemia: Plan: Hgb 7.8 and stable since surgery. Pt on iron 325 qd, will increase to BID at d/c. Admission and Anticipated Discharge Date Admission Date: September 21, 2023 Subjective 77 yo f POD #4 after evar with R to L fem fem BPG. Doing well without complaints, aside from fatigue. States she would like to get to rehab. Review of Systems Review of Systems: All systems reviewed & are unremarkable except as noted in HPI & below Physical Exam Constitutional: WD/WN, vitals as above Respiratory: normal respiratory effort; no respiratory distress Cardiovascular: Rate/Rhythm: regular rate and regular rhythm Extremities: normal capillary refill Gastrointestinal (Abdomen): Inspection/Auscultation: abdomen normal to inspection; abdomen not distended Skin: + incision (prevena dressings intact) Neurologic: CN's II-XI intact bilaterally and moves all extremities Psychiatric: Orientation: alert and oriented x 3 Results & Data Vital Signs (Past 12 Hours) Vital Signs Temp Pulse Resp BP Pulse Ox O2 Del Method O2 Flow Rate 09/25/23 07:55 36.5 C 80 17 124/62 95 Nasal Cannula 2 09/25/23 07:20 Nasal Cannula 1
--- NOTE | 2023-09-25 09:47 | Discharge Summary ---
Date of Service September 25, 2023 Admission HPI Per Admitting Provider Name: OLY ARELLANO Patient Number: [id number] : 1945 Date of Service: 09/07/2023 Chief Complaint: _Follow-up after NM myocardial perfusion scan HPI: _Ms. Arellano is an elderly female who presents to Dr. Wilson vascular surgery clinic today for a follow-up appointment to discuss repair of her abdominal arctic aneurysm, after undergoing a myocardial perfusion scan last week. Patient was initially seen by Dr. Wilson and myself while inpatient at [facility], after the hospitalist team had noted 6.3 cm infrarenal abdominal aortic aneurysm on imaging. Patient was initially scheduled to undergo repair while she was inpatient, however, a cardiac evaluation was requested during which a myocardial perfusion scan was recommended due to symptoms of CARSON and lack of regular cardiac care. Patient states overall she is feeling well since being at home. She states she has been taking it easy and not doing much more than what she has to each day. Her 3 children check on her regularly, and 1 even accompanied her to the appointment today. She denies any concerns of shortness of breath, chest pain, abdominal pain, nausea, vomiting, lower extremity claudication, rest pain, nonhealing wounds or ulcers, other complaints. Current Home Meds: (Last Updated 09/07 15:12) LORazepam (LORazepam 0.5 mg oral tablet) TAKE 1/2 (ONE-HALF) TABLET BY MOUTH EVERY 6 HOURS NEEDED FOR ANXIETY albuterol (Albuterol (Eqv-ProAir HFA) 90 mcg/inh inhalation aerosol) INHALE 2 PUFFS BY MOUTH EVERY 6 HOURS NEEDED amLODIPine (amLODIPine 10 mg oral tablet) TAKE 1 TABLET BY MOUTH ONCE DAILY atorvastatin (atorvastatin 40 mg oral tablet) 40 mg PO Daily cloNIDine (cloNIDine 0.1 mg oral tablet) TAKE 1 TABLET BY MOUTH ONCE DAILY NEEDED BP>170/100 escitalopram (escitalopram 5 mg oral tablet) TAKE 1 TABLET BY MOUTH ONCE DAILY ferrous sulfate (ferrous sulfate 325 mg (65 mg elemental iron) oral delayed release tablet) 325 mg PO Daily levothyroxine (levothyroxine 75 mcg (0.075 mg) oral tablet) TAKE 1 TABLET BY MOUTH ONCE DAILY lisinopril (lisinopril 40 mg oral tablet) TAKE 1 TABLET BY MOUTH ONCE DAILY lisinopril (lisinopril 20 mg oral tablet) TAKE 1 TABLET BY MOUTH ONCE DAILY olodaterol-tiotropium (Stiolto Respimat 60 ACT 2.5 mcg-2.5 mcg/inh inhalation aerosol) INHALE 2 PUFFS BY MOUTH ONCE DAILY DIRECTED sodium chloride (Sodium Chloride 1 g oral tablet) 2 tab po tid unlisted medication (ASPIRIN LOW EC 81MG TAB) TAKE 1 TABLET BY MOUTH ONCE DAILY Allergies and Sensitivities: NKA Past Medical History: Problems: AAA (abdominal aortic aneurysm) OBJECTIVE Vitals: Last Updated 09/07/23 15:16 Date Temp BP Location Pulse RR SpO2 Pain 09/07/23 150/62 Left Arm 83 93 Vital Signs are the last 3 documented. No Orthostatic Data Available No Height/Weight Data Available Physical Exam Constitutional: In general patient is a healthy-appearing well-nourished well- developed elderly female in no distress. She is alert and oriented with any focal deficits. She ambulates without assistance. Her heart is regular, her lungs are decreased throughout but clear. Her abdomen is soft nontender with no active bowel sounds, and her 6 cm aneurysm is palpable. Her right femoral pulse is nonpalpable, her left femoral pulse is +3. Her right lower extremity distal pulses are nonpalpable, her left lower extremity distal pulses are +1. ASSESSMENT: _ PLAN: _ 1 ) _abdominal aortic aneurysm, 6 cm Patient does have a large abdominal aortic aneurysm, as well as a known right common iliac artery occlusion. Dr. Wilson had previously recommended that patient undergo a percutaneous abdominal aortic aneurysm repair, however, due to her right common iliac artery occlusion, she may require a Uni limb with left to right femorofemoral bypass if the right iliac occlusion is unable to be traversed with a wire. The procedure, risks, benefits, and alternatives were discussed with the patient by myself at Dr. Wilson's request. Patient expressed understanding and agreement to proceed. We will tentatively schedule this for 1 to 2 weeks from now. Her myocardial perfusion scan showed abnormal results, and we recommended that she undergo a formal cardiac clearance to evaluate her cardiac risk prior to her procedure. Patient and her daughter were advised to call with any other questions or concerns. They are agreeable to this plan. Thank you for letting us participate in the care of this patient. I have personally spent_29__ minutes performing aiiv-vj-psdv and wru-onoo-ec-face activities on this date of service.Time does not include separately reported services. Activities Include: _x_ review of the medical record _x_ obtaining a history _x_ physical exam/evaluation __ review labs _x_ review radiology reports _x_ counseling/educating patient/family/caregiver _x_ discussion/referral to other healthcare professional _x_ documenting care in the medical record __ independent interpretation of results _x_ communication of results to patient/family/caregiver _x_ coordination of care Signature Line Electronic Signature on File CC: Lissette Dailey, DO Lissette Dailey, DO [address] [facility] [id number] * CC: Glen Velasquez, [address] [facility] [address] [place] [address] Electronically Reviewed/Signed by: Aisha Baeza PA-C Author Signature Dt/Tm:09/07/2023 04:27 PM [facility] [place] [place] [address] LM Result Type: HVI Outpt Note Date of Service: September 07, 2023 16:15 EST Authorization Status: Final Author or Import Date: ADAL Baeza Lynn on September 07, 2023 16:27 EST Verified By: ADAL Baeza Lynn on September 07, 2023 16:27 EST Encounter info: [id number], [facility], Clinic, 09/07/2023 - 09/07/2023 Admission Exam Per Admitting Provider Constitutional: In general patient is a healthy-appearing well-nourished well- developed elderly female in no distress. She is alert and oriented with any focal deficits. She ambulates without assistance. Her heart is regular, her lungs are decreased throughout but clear. Her abdomen is soft nontender with no active bowel sounds, and her 6 cm aneurysm is palpable. Her right femoral pulse is nonpalpable, her left femoral pulse is +3. Her right lower extremity distal pulses are nonpalpable, her left lower extremity distal pulses are +1. Principal Diagnosis 1. s/p Unilimb EVAR with R to L fem fem BPG 2. AAA 3. L iliac artery occlusion 4. Post op anemia Discharge Exam Constitutional WD/WN, vitals as above Respiratory normal respiratory effort; no respiratory distress Cardiovascular Rate/Rhythm: regular rate and regular rhythm Extremities: normal capillary refill Gastrointestinal (Abdomen) Inspection/Auscultation: abdomen normal to inspection; abdomen not distended Skin + incision (prevena dressings intact) Neurologic CN's II-XI intact bilaterally and moves all extremities Psychiatric Orientation: alert and oriented x 3 Discharge Data Allergies Allergy/AdvReac Type Severity Reaction Status Date / Time No Known Allergies Allergy Verified 09/21/23 06:52 Consultations 09/21/23 14:11 Consult Box Sorter Routine 09/21/23 14:13 Consult Box Sorter Routine Procedures Performed Operation Date: 09/21/23 08:00 Actual Procedures p uni limb endvascular aneurysm repair, (Not Applicable) - Ba Wilson MD s Right to Left Femoral to Femoral artery bypass, embalization of common illiac artery with amplatz plug, bilateral groin exposure, right common iliac endarterectomy with bovine patch (Not Applicable) - Ba Wilson MD Ordered Studies 09/21/23 07:09 EV AAA repair aorta only Routine Hospital Course (1) AAA (abdominal aortic aneurysm): Post op day #4 s/p evar with R to L fem fem BPG, doing well. now on 2l O2 with a sat of 93 D/C to rehab today. (2) Acute blood loss anemia: Hgb 7.8 and stable since surgery. Pt on iron 325 qd, will increase to BID at d/c. Total Time Total Time Spent Total Time Spent (In Minutes): 0 Discharge Plan Discharge Items Patient Disposition: Transfer Care Home Fac Reason For Visit: Abdominal Aortic Aneurysm Discharge Diagnosis: 1. s/p Unilimb EVAR with R to L fem fem bypass graft 2. AAA 3. Post op anemia Condition on Discharge: Good Activity: Per Instructions section Non-emergency contact: Primary Care Provider and Surgeon Call non-emergency contact if: your symptoms worsen, your pain is not controlled, your pain is concerning for you, you have a fever, your wound has increased redness and your wound has increased drainage Follow-up/Referrals: Ba Wilson MD [Physician] - (Follow up with Dr Wilson or Aisha Baeza PA-C, in 2 weeks for staple removal) Wirths,Lissette, D.O. [Primary Care Provider] - (Follow up with your PCP within 2 weeks) Diet: Heart Healthy Addtl Attending Provider Instructions: SPECIAL CARE INSTRUCTIONS: Medications: * Continue to take your medications as directed. Incision/Puncture Site Care: Bilateral groin incisions currently covered with Prevena incisional wound vacs. These are disposable. The entire unit( vacuum device, tubing, purple foam) can be thrown away once the batteries . When the batteries , the purple foam will no longer be suctioned/compressed, and the machine will no longer make any noise. If you have any questions, call Dr Wilson's office at [phone] for instructions. 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 * You may walk and go up and down steps. * Avoid excessive bending or movement at the level of the incisions or punctures. Risks and Possible Complications: * Infection/Drainage/Bleeding - Drainage or bleeding from the incisions/puncture site should be minimal. If you have excessive bleeding or drainage, call our office ([phone]) right away. * Pain/Numbness - You may experience some mild pain or soreness at your incision sites. You may also have some numbness around the incisions or into the insides of your thighs. Bruising is normal and should resolve within 2 weeks. * Changes in Appetite or Bowel Habits - Mostly related to anesthesia and pain medication, some patients have reported decreased appetite and/or problems with constipation. These symptoms usually improve over a few weeks. Remembering to take an iebj-ojm-licxbry stool softener, as directed, will help you to avoid constipation. Call our office and seek emergent treatment if you develop: * Fever or chills * Have a temperature greater than 101 degrees F * Any redness or purulent drainage from your incisions or punctures * Severe abdominal, chest or back pain SKIN IRRITATION: * You may experience some redness and/or swelling in the area where radiation was administered. If any skin irritation occurs, please contact your family physician. You will be receiving a call from the Vascular Surgery Nurse after you are discharged. FOLLOW UP VISIT: It is important for you to keep your follow up appointments with your medical provider. Keep any scheduled doctor appointments. Pending Studies at Discharge: No Stand-Alone Forms: My [facility] Skilled Items Patient informed of condition?: Yes DNR: No Discharge Level of Care: Acute rehab Communicable Disease: No Discharge Prognosis: Improving Lines: None Urinary Catheter: No Medications and DC Order Prescriptions: New docusate sodium 100 mg Capsule 100 mg PO BID Qty: 60 0RF tramadol 50 mg tablet 50 mg PO TID PRN (Reason: pain) Qty: 20 0RF Continued atorvastatin 40 mg tablet 40 mg PO HS clonidine HCl 0.1 mg tablet 0.1 mg PO DAILY PRN (Reason: BP greater than 170/100) lisinopril 20 mg tablet See Rx Instructions .ROUTE .COMPLEX Rx Instructions: Take 20mg with 40mg tablet to equal 60mg by mouth every morning aspirin 81 mg tablet,delayed release (DR/EC) 81 mg PO QPM levothyroxine 75 mcg tablet 75 mcg PO QAM lorazepam 0.5 mg tablet 0.5 mg PO Q6H PRN (Reason: Anxiety) amlodipine 10 mg tablet 10 mg PO QPM albuterol sulfate 90 mcg/actuation HFA aerosol inhaler 2 puff INHALATION Q6H PRN (Reason: SOB or wheezing) lisinopril 40 mg tablet See Rx Instructions .ROUTE .COMPLEX Rx Instructions: Take 40mg with 20mg tablet to equal 60mg by mouth every morning escitalopram oxalate 10 mg tablet 10 mg PO QPM sodium chloride 1,000 mg tablet,soluble 2,000 mg PO TID Stiolto Respimat 2.5-2.5 mcg/actuation mist 2 puff INHALATION QAM Changed ferrous sulfate 325 mg (65 mg iron) tablet 325 mg PO BID Qty: 60 0RF Discharge Orders: Discharge Order (Routine); Ordered 09/25/23 Ordered By: Aisha Baeza Admission Data Admit Date/Time: 09/21/23 07:48 Attending Provider: Ba Wilson Admit Provider: Ba Wilson Primary Care Provider: Lissette Dailey Other Providers: Nicho Dixon; Jaycob Willson; Doron Boss; Chris Huynh; Hardik Garcia; Sharon Osborn; Thao Melvin; Levi Clay; Sly Gauthier; rBoderick Duval; Be Moeller; Oly Wilkerson
== END 2023-09-25 15:10 | DRG 269 ==
LOC: ASU 06:21 → 1E 07:48 → 3E 09-22 19:55